=== PATIENT | male | born 1950 | race Caucasian/White ===

== ENCOUNTER 2018-01-14 10:08 | Inpatient (IN) | payer MEDICARE ==
[~2018-01-14] VITALS: Ht 182.9 cm; Wt 121.0 kg
[2018-01-14 10:14] VITALS: BP 121/72; PULSE 101; RESP 16; TEMP 98.3; O2SAT 98
--- NOTE | 2018-01-14 11:18 | PD ---
HPI Chief Complaint: Skin Problem Time Seen by Provider: 11:14 Travel History International Travel<30 days: No Contact w/Intl Traveler<30days: No Traveled to known affect area: No History of Present Illness HPI 67-year-old man, reports treated for diabetes in the past but denies diabetes now. On any medications. Presents emerged from with worsening right foot wound. States first noticed one couple months ago. Over the past several days has gotten more red swollen painful malodorous with drainage. No fevers. No history of previous similar problems. Denies any other complaints. History Past Medical History Narrative Medical Treated for diabetes in the past, denies any medical problems now. Tetanus Vaccination: > 5 Years Social History Alcohol Use: Yes Tobacco Use: No Allergies-Medications (Allergen,Severity, Reaction): Coded Allergies: No Known Allergies (Unverified , 01/14/18) Reported Meds & Prescriptions Reported Meds & Active Scripts Active No Active Prescriptions or Reported Medications Review of Systems Except as stated in HPI: all other systems reviewed are Neg Physical Exam Narrative GENERAL: 67-year-old man, no acute distress SKIN: Focused skin assessment warm/dry. HEAD: Atraumatic. Normocephalic. EYES: Pupils equal and round. No scleral icterus. No injection or drainage. ENT: No nasal bleeding or discharge. Mucous membranes pink and moist. NECK: Trachea midline. No JVD. CARDIOVASCULAR: Regular rate and rhythm. No murmur appreciated. RESPIRATORY: No accessory muscle use. Clear to auscultation. Breath sounds equal bilaterally. GASTROINTESTINAL: Abdomen soft, non-tender, nondistended. Hepatic and splenic margins not palpable. MUSCULOSKELETAL: Edema and swelling with erythema redness to the right foot involving the entire foot and ankle. There is a chronic wound on the base of the plantar surface of the foot, as well as some ulceration over the MTP joints medially. There is copious drainage as well as a foul smell from the area. No obvious fluctuance or abscess. NEUROLOGICAL: Awake and alert. No obvious cranial nerve deficits. Motor grossly within normal limits. Normal speech. PSYCHIATRIC: Appropriate mood and affect; insight and judgment normal. Data Data Last Documented VS Vital Signs Date Time Temp Pulse Resp B/P (MAP) Pulse Ox O2 Delivery O2 Flow Rate FiO2 01/14/18 10:14 98.3 101 16 121/72 (88) 98 Orders Orders Complete Blood Count With Diff (01/14/18 11:14) Comprehensive Metabolic Panel (01/14/18 11:14) Blood Culture (01/14/18 11:14) Iv Access Insert/Monitor (01/14/18 11:14) Westergren Sedimentation Rate (01/14/18 11:14) C-Reactive Protein (Crp) (01/14/18 11:14) Foot, Complete ([id number]) (01/14/18 ) MDM Medical Decision Making Medical Screen Exam Complete: Yes Emergency Medical Condition: Yes Differential Diagnosis Infection, cellulitis, osteo-, other Narrative Course Medical decision making This 67 woman who presents emergency department with lower extremity infection, concern for osteomyelitis, likely diabetes. Will need IV antibiotics in the back, will draw labs and cultures upfront, likely admission. Scripts No Active Prescriptions or Reported Meds Jefferson Andrew MD Jan 14, 2018 11:18
--- NOTE | 2018-01-14 12:17 | RADRPT ---
EXAM DATE/TIME: 01/14/2018 11:41 [facility] COMPARISON: No previous studies available for comparison. INDICATIONS : Inflammation. Patient states he has open ulcer with drainage. MEDICAL HISTORY : Diabetes mellitus type II. SURGICAL HISTORY : None. ENCOUNTER: Initial ACUITY: 4 - 6 months PAIN SCORE: 3/10 LOCATION: Right Foot. FINDINGS: Diffuse soft tissue swelling is noted involving the right foot. There is an ulceration involving the right fifth toe with some air in the soft tissues. The finding suggests infection and possible gangre ne. Degenerative changes are noted involving the right midfoot and right ankle. Plantar and Achilles calcaneal spurs are noted. There is no acute fracture or dislocation. CONCLUSION: 1. Diffuse soft tissue swelling with some air in the soft tissues suggesting infection and possible g angrene. Clinical correlation is recommended. 2. Arthritic changes involving the right mid foot and right ankle. 3. Plantar and Achilles calcaneal spurs. 4. No acute fracture or dislocation. Hesham Wheat MD on January 14, 2018 at 12:12 Board Certified Radiologist. This report was verified electronically.
[2018-01-14 12:23] LABS: AUTOMATED NEUTROPHIL # 12.4 TH/MM3 (1.8-7.7); BASOPHIL % 0.2 % (0.0-2.0); EOSINOPHIL % 0.1 % (0.0-4.0); HEMATOCRIT 36.3 % (39.0-51.0); HEMOGLOBIN 11.9 GM/DL (13.0-17.0); LYMPH % 4.8 % (9.0-44.0); LYMPHOCYTE # 0.7 TH/MM3 (1.0-4.8); MEAN CELL VOLUME 83.9 FL (80.0-100.0); MEAN CORPUSCULAR HEMOGLOBIN 27.4 PG (27.0-34.0); MEAN CORPUSCULAR HGB CONC 32.6 % (32.0-36.0); MEAN PLATELET VOLUME 8.6 FL (7.0-11.0); MONO % 7.9 % (0.0-8.0); MONOCYTE # 1.1 TH/MM3 (0-0.9); PLATELET COUNT 256 TH/MM3 (150-450); RED BLOOD COUNT 4.33 MIL/MM3 (4.50-5.90); RED CELL DISTRIBUTION WIDTH 16.4 % (11.6-17.2); WHITE BLOOD COUNT 14.3 TH/MM3 (4.0-11.0)
[2018-01-14 12:39] LABS: ALT (GPT) 17 U/L (12-78)
[2018-01-14 12:47] LABS: ALKALINE PHOSPHATASE 185 U/L (45-117); TOTAL BILIRUBIN ADULT 1.1 MG/DL (0.2-1.0); TOTAL PROTEIN 8.7 GM/DL (6.4-8.2)
[2018-01-14 12:54] LABS: ALBUMIN 2.8 GM/DL (3.4-5.0); AST (GOT) 17 U/L (15-37); BICARBONATE 26.5 MEQ/L (21.0-32.0); BLOOD UREA NITROGEN 20 MG/DL (7-18); CALCIUM 9.1 MG/DL (8.5-10.1); CHLORIDE 101 MEQ/L (98-107); CREATININE 1.45 MG/DL (0.60-1.30); GLOMERULAR FILTRATION RATE 49 ML/MIN (>89); GLUCOSE,RANDOM 243 MG/DL (74-106); SODIUM (NA) 135 MEQ/L (136-145)
[2018-01-14] MEDS ORDERED: PIPERACIL-TAZO 4.5 GM PREMIX 100 ML IV ONE (13:15)
[2018-01-14] MEDS ORDERED: VANCOMYCIN INJ 1,500 MG in SODIUM CHLORID 0.9% 500 ML INJ 500 ML IV ONE (13:15)
[2018-01-14] MEDS ORDERED: SODIUM CHLORIDE 0.9% FLUSH 10 ML FLUSH IV FLUSH PRN (14:00)
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
[2018-01-14] MEDS ORDERED: VANCOMYCIN INJ 1,000 MG in SODIUM CHLOR 0.9% 250 ML INJ 250 ML IV SCH (14:45)
[2018-01-14] MEDS ORDERED: LACTULOSE SYRUP 20 GM/30 ML CUP PO PRN (14:45)
[2018-01-14] MEDS ORDERED: NALOXONE HCL 0.4 MG/ML AMP IV PUSH PRN (14:45)
[2018-01-14] MEDS ORDERED: SENNOSIDES 8.6 MG TAB PO PRN (14:45)
[2018-01-14] MEDS ORDERED: ACETAMINOPHEN 325 MG TAB PO PRN (14:45)
[2018-01-14] MEDS ORDERED: MAGNESIUM HYDROXIDE SUSP 30 ML CUP PO PRN (14:45)
[2018-01-14] MEDS ORDERED: BISACODYL 10 MG SUPP RECTAL PRN (14:45)
[2018-01-14] MEDS ORDERED: Vancomycin Consult Pharmacy 1 EA OTHER SCH (14:45)
[2018-01-14] MEDS ORDERED: ONDANSETRON HCL 4 MG/2 ML VIAL IVP PRN (14:45)
[2018-01-14] MEDS ORDERED: DEXTROSE 50% IN WATER 50 ML VIAL(D50) IV PUSH PRN (15:00)
[2018-01-14] MEDS ORDERED: GLUCAGON 1 MG/ML VIAL OTHER PRN (15:00)
[2018-01-14] MEDS ORDERED: SODIUM CHLOR 0.9% 1000 ML INJ 1,000 ML IV SCH (15:55)
[2018-01-14] MEDS ORDERED: metroNIDAZOLE 500 MG INJ 100 ML IV SCH (16:00)
--- NOTE | 2018-01-14 18:09 | RADRPT ---
EXAM DATE/TIME: 01/14/2018 17:43 [facility] COMPARISON: No previous studies available for comparison. INDICATIONS : Patient states left foot ulcer. MEDICAL HISTORY : Diabetes mellitus type II. SURGICAL HISTORY : None. ENCOUNTER: Initial ACUITY: 1 day PAIN SCORE: 0/10 LOCATION: Left Foot FINDINGS: Three view examination of the left foot demonstrates dislocation, or fracture. There is nonspecific swelling around the foot. The tarsal bones appear intact. There are degenerative changes at the firs t metatarsophalangeal joint and first DIP joint. There are degenerative changes involving the tarsal bones. There is a heel spur. There is a small cutaneous ulcer along the ball of foot. No foreign bodi es are demonstrated. No bony destruction is demonstrated. CONCLUSION: 1. Small cutaneous ulcer along the ball of foot. 2. Degenerative changes are seen throughout the foot. 3. No bony destruction. Claude Gaviria MD on January 14, 2018 at 18:06 Board Certified Radiologist. This report was verified electronically.
[2018-01-14] MEDS: INSULIN ASPART SUPPLEMENTAL SCALE SQ SCH ×2 (18:14→22:32)
[2018-01-14] MEDS: CEFEPIME INJ 1,000 MG in SODIUM CHLORIDE 0.9% INJ 100 ML IV SCH (18:14)
[2018-01-14 18:18] VITALS: BP 139/72; PULSE 102; RESP 16; O2SAT 96
[2018-01-14 20:00] VITALS: BP 143/58; PULSE 102; RESP 18; TEMP 97.9; O2SAT 97
[2018-01-14] MEDS ORDERED: GADODIAMIDE PF 287 MG/ML 20 ML VIAL (for RAD MRI) IVCONTRAST ONE (21:28)
--- NOTE | 2018-01-14 22:14 | RADRPT ---
EXAM DATE/TIME: 01/14/2018 19:52 [facility] COMPARISON: MRI FOOT RIGHT W & W/O CONTRAST, January 14, 2018, 19:52. FOOT LEFT COMPLETE ([id number]), January 14, 2018 , 17:43. INDICATIONS : Osteomyelitis. Wound on left ball of foot. CONTRAST: 23 cc Omniscan (gadodiamide) IV MEDICAL HISTORY : Diabetes mellitus type 2. SURGICAL HISTORY : None. ENCOUNTER: Subsequent ACUITY: 4-6 months PAIN SCORE: 0/10 LOCATION: Left foot. TECHNIQUE: Multiplanar, multisequence MRI examination was performed without contrast and after the intravenous a dministration of gadolinium. FINDINGS: There is motion artifact throughout the study. BONE/CARTILAGE: There is abnormal signal within the tibial sesamoid at the first metatarsal head. The tibial sesamoid does enhance. The remaining bony structures demonstrate normal signal. Bone marrow signal is homogen eous. Articular cartilage signal is within normal limits. TENDONS: All of the visualized tendons are intact. MISCELLANEOUS: Plantar aponeurosis is intact. Sinus tarsi is within normal limits. There is very prominent thickeni ng of the distal Achilles tendon. The there is edema seen within the forefoot. POST-CONTRAST: There are no abnormal areas of enhancement on the post-contrast images. CONCLUSION: 1. Abnormal signal in the tibial sesamoid at the first metatarsal head region concern for possible in flammatory change in osteomyelitis. Remaining bones and joints are normal. 2. There are prominent thickening of the distal Achilles tendon consistent with very prominent tendin osis/tendinopathy. 3. Soft tissue swelling in the forefoot. Eric Resendiz MD on January 14, 2018 at 22:05 Board Certified Radiologist. This report was verified electronically.
--- NOTE | 2018-01-14 22:17 | RADRPT ---
EXAM DATE/TIME: 01/14/2018 19:52 [facility] COMPARISON: No previous studies available for comparison. INDICATIONS : Osteomyelitis. 5th digit wound for 5 months. CONTRAST: 10 cc Omniscan (gadodiamide) IV MEDICAL HISTORY : Diabetes mellitus type 2. SURGICAL HISTORY : None. ENCOUNTER: Subsequent ACUITY: 4-6 months PAIN SCORE: 0/10 LOCATION: Right foot. TECHNIQUE: Multiplanar, multisequence MRI examination was performed without contrast and after the intravenous a dministration of gadolinium. FINDINGS: BONE/CARTILAGE: There is abnormal signal and destruction at the fifth proximal phalanx. There is mild abnormal signal in the distal lateral fifth metatarsal head region. There is surrounding soft tissue swelling and en hancement. The remaining bony structures appear intact. TENDONS: All of the visualized tendons are intact. MISCELLANEOUS: Plantar aponeurosis is intact. Sinus tarsi is within normal limits. There is an effusion being super iorly directed at the first MTP joint region. CONCLUSION: Osteomyelitis at the fifth proximal phalanx and at the distal aspect of the metatarsal of the fifth m etatarsal head region. Eric Resendiz MD on January 14, 2018 at 22:12 Board Certified Radiologist. This report was verified electronically.
[2018-01-14] MEDS: DOCUSATE SODIUM 50 MG/SENNA 8.6 MG TAB PO SCH (22:33)
[2018-01-14] MEDS: SODIUM CHLORIDE 0.9% FLUSH 10 ML FLUSH IV FLUSH SCH (22:33)
[2018-01-14] MEDS: metroNIDAZOLE 500 MG INJ 100 ML IV SCH (23:55)
[2018-01-15] VITALS (8 sets, daily range): BP systolic 106–163; BP diastolic 48–81; PULSE 93–98; RESP 16–18; TEMP 97.5–99.8; O2SAT 94–97
[2018-01-15] MEDS ORDERED: VANCOMYCIN INJ 1,000 MG in SODIUM CHLOR 0.9% 250 ML INJ 250 ML IV SCH (01:00)
[2018-01-15] MEDS: SODIUM HYPOCHLORITE 0.25% 500 ML BTL TOP SCH ×3 (02:06→23:27)
[2018-01-15] MEDS: CEFEPIME INJ 1,000 MG in SODIUM CHLORIDE 0.9% INJ 100 ML IV SCH ×3 (02:31→18:35)
[2018-01-15 07:16] LABS: AUTOMATED NEUTROPHIL # 8.6 TH/MM3 (1.8-7.7); BASOPHIL % 0.3 % (0.0-2.0); EOSINOPHIL # 0.1 TH/MM3 (0-0.4); EOSINOPHIL % 0.6 % (0.0-4.0); HEMATOCRIT 32.3 % (39.0-51.0); HEMOGLOBIN 10.7 GM/DL (13.0-17.0); LYMPH % 8.3 % (9.0-44.0); LYMPHOCYTE # 0.9 TH/MM3 (1.0-4.8); MEAN CELL VOLUME 83.2 FL (80.0-100.0); MEAN CORPUSCULAR HEMOGLOBIN 27.5 PG (27.0-34.0); MEAN CORPUSCULAR HGB CONC 33.1 % (32.0-36.0); MEAN PLATELET VOLUME 8.3 FL (7.0-11.0); MONO % 9.6 % (0.0-8.0); NEUT % 81.2 % (16.0-70.0); PLATELET COUNT 218 TH/MM3 (150-450); RED BLOOD COUNT 3.88 MIL/MM3 (4.50-5.90); RED CELL DISTRIBUTION WIDTH 16.3 % (11.6-17.2); WHITE BLOOD COUNT 10.6 TH/MM3 (4.0-11.0)
[2018-01-15 07:50] LABS: ALBUMIN 2.3 GM/DL (3.4-5.0); ALT (GPT) 11 U/L (12-78); AST (GOT) 7 U/L (15-37); BICARBONATE 25.9 MEQ/L (21.0-32.0); BLOOD UREA NITROGEN 20 MG/DL (7-18); CALCIUM 8.3 MG/DL (8.5-10.1); CHLORIDE 107 MEQ/L (98-107); CREATININE 1.47 MG/DL (0.60-1.30); GLOMERULAR FILTRATION RATE 48 ML/MIN (>89); GLUCOSE,RANDOM 181 MG/DL (74-106); SODIUM (NA) 140 MEQ/L (136-145)
[2018-01-15 07:53] LABS: ALKALINE PHOSPHATASE 159 U/L (45-117); TOTAL BILIRUBIN ADULT 0.9 MG/DL (0.2-1.0); TOTAL PROTEIN 7.3 GM/DL (6.4-8.2)
[2018-01-15] MEDS: DOCUSATE SODIUM 50 MG/SENNA 8.6 MG TAB PO SCH ×2 (09:00→21:29)
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
[2018-01-15] MEDS: INSULIN ASPART SUPPLEMENTAL SCALE SQ SCH ×4 (09:06→21:28)
[2018-01-15] MEDS: metroNIDAZOLE 500 MG INJ 100 ML IV SCH ×3 (09:07→23:22)
--- NOTE | 2018-01-15 12:56 | RADRPT ---
EXAM DATE/TIME: 01/15/2018 11:48 [facility] COMPARISON: No previous studies available for comparison. INDICATIONS : Syncope. MEDICAL HISTORY : Cough. Sore throat. Diabetes. Fever. SURGICAL HISTORY : Traction of finger. ENCOUNTER: Initial ACUITY: 1 day PAIN SCORE: 0/10 LOCATION: Bilateral neck PEAK SYSTOLIC VELOCITIES (cm/sec): ICA/CCA RATIO: Right: 2.1 Left: 1.0 ICA: Right: 152 Left: 86 CCA: Right: 73 Left: 89 ECA: Right: 109 Left: 62 VERTEBRAL: Right: 52 antegrade Left: 85 antegrade Elevated flow velocities and ICA/CCA ratios have been found to correlate with increased degrees of vessel stenosis, calculated as percentage of diameter relative to a normal segment of distal ICA/CCA FINDINGS: RIGHT CAROTID: There is an elevated peak systolic velocity of the right internal carotid artery at elevated ICA/CCA ratio suggesting 50-69% stenosis of the right ICA. LEFT CAROTID: No significant stenosis is visualized. The waveforms are within normal limits. VERTEBRAL ARTERIES: Antegrade flow is seen in both vertebral arteries. MISCELLANEOUS: None. CONCLUSION: 1. Elevated peak systolic velocity of the right internal carotid artery at elevated ICA/CCA ratio sug gesting 50-69% stenosis of the right ICA. 2. No significant left carotid stenosis. Hesham Wheat MD on January 15, 2018 at 12:45 Board Certified Radiologist. This report was verified electronically.
--- NOTE | 2018-01-15 13:39 | RADRPT ---
EXAM DATE/TIME: 01/14/2018 00:00 [facility] COMPARISON: No previous studies available for comparison. INDICATIONS : Lower Extremity Cellulitis TECHNIQUE: Four-cuff ankle and brachial pressures were obtained. Pulse cuff waveform tracings of the ankles were recorded, and ankle-brachial indices were calculated. PRESSURES (mmHg): Brachial (arm): Right 108 Left IV SITE Ankle: Right 137 Left 139 PAVEL: Right 1.27 Left 1.29 TBI: Right 0.81 Left 0.84 PULSED CUFF WAVEFORMS: Demonstrate normal amplitude bilaterally. CONCLUSION: Mildly diminished ABIs bilaterally. Claude Gaviria MD on January 15, 2018 at 13:38 Board Certified Radiologist. This report was verified electronically.
[2018-01-15] MEDS: VANCOMYCIN INJ 2,000 MG in SODIUM CHLORID 0.9% 500 ML INJ 500 ML IV SCH (14:28)
[2018-01-15 15:18] LABS: HEMOGLOBIN A1C 10.3 % (4.3-6.0)
--- NOTE | 2018-01-15 16:49 | HHI.FPPN ---
Subjective Remarks DELAYED DOCUMENTATION, PATIENT SEEN THIS MORNING No acute events overnight. VS unremarkable except for Pulse in the 90s. This morning patient reports that he feels okay but a little SOB. Ate breakfast this morning without issue. Patient otherwise has no acute concerns. (Danae Rose MD, R3) Objective Vitals Vital Signs Date Time Temp Pulse Resp B/P (MAP) Pulse Ox O2 Delivery O2 Flow Rate FiO2 01/15/18 12:00 98.8 96 18 117/66 (83) 95 01/15/18 09:17 97 21 01/15/18 08:00 98.5 93 16 122/70 (87) 94 01/15/18 04:00 98.4 93 18 163/81 (108) 94 01/15/18 01:21 99.8 95 106/48 (67) 94 01/15/18 00:00 97.6 97 18 137/56 (83) 97 01/14/18 22:33 Room Air 01/14/18 20:00 97.9 102 18 143/58 (86) 97 01/14/18 19:05 01/14/18 18:18 102 16 139/72 (94) 96 Room Air (Danae Rose MD, R3) Result Diagram: 01/15/18 0620 01/15/18 0620 Imaging Last Impressions Carotid Artery Ultrasound 01/15/18 0000 Signed Impressions: Service Date/Time: December 11:48 - CONCLUSION: 1. Elevated peak systolic velocity of the right internal carotid artery at elevated ICA/ CCA ratio suggesting 50-69%% stenosis of the right ICA. 2. No significant left carotid stenosis. Hesham Wheat MD Foot X-Ray 01/14/18 0000 Signed Impressions: Service Date/Time: Sunday, January 14, 2018 17:43 - CONCLUSION: 1. Small cutaneous ulcer along the ball of foot. 2. Degenerative changes are seen throughout the foot. 3. No bony destruction. Claude Gaviria MD Foot MRI 01/14/18 0000 Signed Impressions: Service Date/Time: Sunday, January 14, 2018 19:52 - CONCLUSION: Osteomyelitis at the fifth proximal phalanx and at the distal aspect of the metatarsal of the fifth metatarsal head region. Eric Resendiz MD Objective Remarks GEN: Well-developed, well-nourished patient. No acute distress. Laying comfortably in bed. CV: Regular rate and rhythm without obvious murmurs. Decreased palpation carotid pulses but without bruits. LUNGS: Good air movement bilaterally but with bibasilar crackles. Normal respiratory effort. No wheezes. GI: Soft non distended EXT: Right foot wrap in gauze, clean and dry. NEURO/PSYCH: Awake, alert. Appropriate insight and judgment. Normal speech (Danae Rose MD, R3) A/P Assessment and Plan 67-year-old male with history significant for diabetes that is not currently being controlled. Admitted for right foot osteomyelitis. Patient did meet sepsis criteria on admission. Discharge Planning Pending podiatry intervention in ultimate treatment of osteomyelitis sdw Dr. Jennings and Dr. Jose (Danae Rose MD, R3) Attending Attestation Table rounds this morning with Dr Braga, Dr Autumn Fisher, Dr Jose and Dr Restrepo Patients admission and hospital course discussed in detail EMR reviewed Patient interviewed and examined with medical team Agree with contents of above documentation See Orders (Kang Jennings MD) Problem List: (1) Osteomyelitis ICD Codes: M86.9 - Osteomyelitis, unspecified Plan: Found to have osteomyelitis on right foot involving fifth proximal phalanx in the distal aspect of the metatarsal of the fifth metatarsal head. ESR and CRP elevated on admission but down trending. Left foot with wound but appears to be more superficial. -closely monitor left foot wound. -Carotid US performed due to decreased palpable pulses in anticipation of surgery. Show right carotid stenosis of 50-69%. Patient is currently asymptomatic. Podiatry consulted: appreciate recommendations * Will require wound debridement but will determine treatment options pending MRI and arterial studies * Continue IV antibiotics * Nonweightbearing * Physical therapy * Plan to operate on Friday pending results Imaging: * Right Foot MRI: Osteomyelitis at the fifth proximal phalanx and at the distal aspect of the metatarsal of the fifth metatarsal head region. * Right Foot XR: Diffuse soft tissue swelling with some air in the soft tissues suggesting infection and possible gangrene. * Left Foot MRI: Abnormal signal in the tibial sesamoid at the first metatarsal head region concern for possible inflammatory change in osteomyelitis. There are prominent thickening of the distal Achilles tendon consistent with very prominent tendinosis/tendinopathy. * Left Foot XR: Small cutaneous ulcer along the ball of foot. No bony destruction Medications: * Cefepime (01/14- * Vancomycin (01/14- * Metronidazole (01/15- (2) Sepsis ICD Codes: A41.9 - Sepsis, unspecified organism Status: Resolved Plan: Met Sepsis criteria on admission with tachycardia and leukocytosis. Likely source is R foot wound Blood cultures NGTD -see more detailed plan above. (3) Diabetes ICD Codes: E11.9 - Type 2 diabetes mellitus without complications Plan: Patient with known history of DM, was treated with Metformin 4 years ago but hasn't been on medication for past 2-3 years Random glucose of 243 on admission Low dose sliding scale A1C pending -will likely need some basal insulin (4) GABRIEL (acute kidney injury) ICD Codes: N17.9 - Acute kidney failure, unspecified Plan: Creatinine elevated to 1.45 on admission. No known baseline -Hold fluids at this time due to crackles on lung exam -continue to monitor Trend BMP in AM (5) Left foot wound Plan: Wound on plantar surface of L foot, doesn't appear to be acutely infected. See more detailed plan under osteo- (6) FEN Plan: F: non E: will replete as needed N: Diabetic diet, NPO at midnight pending possible procedure DVT: holding for possible procedure, SCDs for now GI PPX: not indicated (Danae Rose MD, R3) Danae Rose MD, R3 Jan 15, 2018 16:49 Kang Jennings MD Jan 15, 2018 19:43
[2018-01-15] MEDS: SODIUM CHLORIDE 0.9% FLUSH 10 ML FLUSH IV FLUSH SCH ×2 (17:17→21:28)
[2018-01-16 00:46] VITALS: BP 137/78; PULSE 95; RESP 18; TEMP 98; O2SAT 96
[2018-01-16] MEDS: CEFEPIME INJ 1,000 MG in SODIUM CHLORIDE 0.9% INJ 100 ML IV SCH ×3 (02:44→18:52)
[2018-01-16 04:47] VITALS: BP 149/89; PULSE 95; RESP 18; TEMP 98; O2SAT 96
[2018-01-16] MEDS: INSULIN ASPART SUPPLEMENTAL SCALE SQ SCH ×4 (07:39→21:42)
--- NOTE | 2018-01-16 07:59 | PD.POD ---
Subjective Podiatric Problems Pt seen at bedside today, he states that he is feeling well. Malodor of wound is notably improved. Past Med/Surg/Social History Social History Smoking Status: Never Smoker Objective Vital Signs Vital Signs Date Time Temp Pulse Resp B/P (MAP) Pulse Ox O2 Delivery O2 Flow Rate FiO2 01/16/18 04:47 98.0 95 18 149/89 (109) 96 01/16/18 00:46 98.0 95 18 137/78 (97) 96 01/15/18 21:28 Room Air 01/15/18 20:54 97.5 98 18 132/76 (94) 95 01/15/18 16:00 98.3 95 18 129/74 (92) 95 01/15/18 15:23 Room Air 01/15/18 12:00 98.8 96 18 117/66 (83) 95 01/15/18 09:17 97 21 01/15/18 08:00 98.5 93 16 122/70 (87) 94 Coded Allergies: No Known Allergies (Unverified , 01/14/18) Physical Exam Details RLE exam linited due to bandages LLE sub 1 ulcer 5mm x 5mm x0 with heavy hypertrophic tissue surrounding, no erythema, no drainage Assessment & Plan A/P 1) Right foot 5th ray OM 2) Left foot sub 1 stage II ulcer with possible OM - OR today for right foot partial 5th ray amp and b/l wound debridements - MRI reviewed with pt - consent ordered - wound cxs pending - 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
[2018-01-16 08:00] VITALS: BP 150/85; PULSE 91; RESP 18; TEMP 97.8; O2SAT 97
[2018-01-16] MEDS: DOCUSATE SODIUM 50 MG/SENNA 8.6 MG TAB PO SCH ×2 (08:03→21:00)
[2018-01-16] MEDS: SODIUM CHLORIDE 0.9% FLUSH 10 ML FLUSH IV FLUSH SCH ×2 (08:04→21:42)
[2018-01-16] MEDS: metroNIDAZOLE 500 MG INJ 100 ML IV SCH ×2 (08:04→16:00)
[2018-01-16] MEDS: VANCOMYCIN INJ 2,000 MG in SODIUM CHLORID 0.9% 500 ML INJ 500 ML IV SCH (08:06)
[2018-01-16] MEDS: SODIUM HYPOCHLORITE 0.25% 500 ML BTL TOP SCH ×2 (08:10→21:00)
[2018-01-16 09:59] LABS: AUTOMATED NEUTROPHIL # 8.9 TH/MM3 (1.8-7.7); BASOPHIL % 0.4 % (0.0-2.0); EOSINOPHIL # 0.1 TH/MM3 (0-0.4); EOSINOPHIL % 0.7 % (0.0-4.0); HEMATOCRIT 34.5 % (39.0-51.0); HEMOGLOBIN 11.4 GM/DL (13.0-17.0); LYMPH % 7.4 % (9.0-44.0); LYMPHOCYTE # 0.8 TH/MM3 (1.0-4.8); MEAN CELL VOLUME 83.7 FL (80.0-100.0); MEAN CORPUSCULAR HEMOGLOBIN 27.7 PG (27.0-34.0); MEAN CORPUSCULAR HGB CONC 33.1 % (32.0-36.0); MEAN PLATELET VOLUME 8.5 FL (7.0-11.0); MONO % 8.7 % (0.0-8.0); MONOCYTE # 0.9 TH/MM3 (0-0.9); NEUT % 82.8 % (16.0-70.0); PLATELET COUNT 222 TH/MM3 (150-450); RED BLOOD COUNT 4.12 MIL/MM3 (4.50-5.90); RED CELL DISTRIBUTION WIDTH 16.3 % (11.6-17.2); WHITE BLOOD COUNT 10.7 TH/MM3 (4.0-11.0)
[2018-01-16 10:25] LABS: BICARBONATE 19.6 MEQ/L (21.0-32.0); CALCIUM 8.7 MG/DL (8.5-10.1); CREATININE 1.55 MG/DL (0.60-1.30)
--- NOTE | 2018-01-16 10:34 | HHI.FPPN ---
Subjective Remarks No acute events overnight. Patient is currently NPO for surgery this afternoon. Denies CP, SOB, N/V. He is aware that he will likely lose his 5th toe at least. Objective Vitals Vital Signs Date Time Temp Pulse Resp B/P (MAP) Pulse Ox O2 Delivery O2 Flow Rate FiO2 01/16/18 04:47 98.0 95 18 149/89 (109) 96 01/16/18 00:46 98.0 95 18 137/78 (97) 96 01/15/18 21:28 Room Air 01/15/18 20:54 97.5 98 18 132/76 (94) 95 01/15/18 16:00 98.3 95 18 129/74 (92) 95 01/15/18 15:23 Room Air 01/15/18 12:00 98.8 96 18 117/66 (83) 95 I/O 01/15/18 01/15/18 01/15/18 01/16/18 01/16/18 01/16/18 07:00 15:00 23:00 07:00 15:00 23:00 Intake Total 200 ml 700 ml 240 ml Balance 200 ml 700 ml 240 ml Intake Oral 240 ml IV Total 200 ml 700 ml # Voids 4 Result Diagram: 01/16/18 0830 01/16/18 0830 Objective Remarks GEN: Well-developed, well-nourished patient. No acute distress. Sitting up in bed comfortably CV: Regular rate and rhythm without obvious murmurs. LUNGS: Good air movement bilaterally but with bibasilar crackles. Normal respiratory effort. No wheezes. GI: Soft non distended, nontender EXT: Right foot wrap in gauze, clean and dry. NEURO/PSYCH: Awake, alert. Appropriate insight and judgment. Normal speech A/P Assessment and Plan 67-year-old male with history significant for diabetes that is not currently being controlled. Admitted for right foot osteomyelitis. Patient did meet sepsis criteria on admission. Started on Vanc, Cefepime, Flagyl since admission. Discharge Planning Pending podiatry intervention in ultimate treatment of osteomyelitis - surgery planned for 01/[address] Autumn Fisher Problem List: (1) Osteomyelitis ICD Codes: M86.9 - Osteomyelitis, unspecified Plan: Found to have osteomyelitis on right foot involving fifth proximal phalanx in the distal aspect of the metatarsal of the fifth metatarsal head. ESR and CRP elevated on admission but down trending. Left foot with wound but appears to be more superficial. -closely monitor left foot wound. -Carotid US performed due to decreased palpable pulses in anticipation of surgery. Show right carotid stenosis of 50-69%. Patient is currently asymptomatic. Podiatry consulted: appreciate recommendations * Will require wound debridement * Continue IV antibiotics * Nonweightbearing * Physical therapy * Plan to operate on 01/16 Imaging: * Right Foot MRI: Osteomyelitis at the fifth proximal phalanx and at the distal aspect of the metatarsal of the fifth metatarsal head region. * Right Foot XR: Diffuse soft tissue swelling with some air in the soft tissues suggesting infection and possible gangrene. * Left Foot MRI: Abnormal signal in the tibial sesamoid at the first metatarsal head region concern for possible inflammatory change in osteomyelitis. There are prominent thickening of the distal Achilles tendon consistent with very prominent tendinosis/tendinopathy. * Left Foot XR: Small cutaneous ulcer along the ball of foot. No bony destruction Medications: * Cefepime (01/14- * Vancomycin (01/14- * Metronidazole (01/14- (2) Sepsis ICD Codes: A41.9 - Sepsis, unspecified organism Status: Resolved Plan: Met Sepsis criteria on admission with tachycardia and leukocytosis. Likely source is R foot wound Blood cultures NGTD -Currently resolved -see more detailed plan above. (3) Diabetes ICD Codes: E11.9 - Type 2 diabetes mellitus without complications Plan: Patient with known history of DM, was treated with Metformin 4 years ago but hasn't been on medication for past 2-3 years Random glucose of 243 on admission Low dose sliding scale A1C elevated at 10.3 Currently well-controlled on sliding scale (4) GABRIEL (acute kidney injury) ICD Codes: N17.9 - Acute kidney failure, unspecified Plan: Creatinine elevated to 1.45 on admission. No known baseline Has been stable but still elevated at 1.55 Held fluids on 01/15 due to crackles on exam No crackles on today's exam, will resume one half maintenance IV fluids as patient is n.p.o. for procedure Trending BMP (5) Left foot wound Plan: Wound on plantar surface of L foot, doesn't appear to be acutely infected. See more detailed plan under osteo- (6) FEN Plan: F: NS at 75mL/hr E: will replete as needed N: NPO currently for procedure today - will resume diabetic diet afterwards DVT: holding procedure, SCDs for now GI PPX: not indicated Anshu Jose MD R1 Jan 16, 2018 10:34
--- NOTE | 2018-01-16 11:06 | EKG ---
Date Performed: 01/16/2018 Time Performed: 08:55:35 PTAGE: 67 years EKG: Sinus rhythm MARKED RIGHT AXIS DEVIATION RIGHT BUNDLE BRANCH BLOCK ABNORMAL ECG NO PREVIOUS TRACING Poor R-wave progression. Old inferior infarction. DOCTOR: Nicholas Fisher Interpretating Date/Time 01/16/2018 11:04:16
[2018-01-16 12:00] VITALS: BP 159/87; PULSE 92; RESP 20; TEMP 98; O2SAT 97
[2018-01-16] MEDS ORDERED: GLYCOPYRROLATE 1 MG/5 ML SYRINGE IV PUSH ONE (12:00)
[2018-01-16] MEDS ORDERED: ROCURONIUM INJ 50 MG/5 ML SYRINGE IV PUSH ONE (12:00)
[2018-01-16] MEDS ORDERED: PROPOFOL 200 MG/20 ML AMP IV ONE (12:00)
[2018-01-16] MEDS ORDERED: ONDANSETRON HCL 4 MG/2 ML VIAL IV ONE (12:00)
[2018-01-16] MEDS ORDERED: NEOSTIGMINE 5 MG/5 ML SYRINGE IV PUSH ONE (12:00)
[2018-01-16] MEDS ORDERED: PHENYLEPH/NS 1000 MCG/10 ML SYR IV ONE (12:00)
[2018-01-16] MEDS ORDERED: LIDOCAINE HCL 1% PF 5 ML SYRINGE OTHER ONE (12:00)
[2018-01-16] MEDS: SODIUM CHLOR 0.9% 1000 ML INJ 1,000 ML IV SCH (12:16)
[2018-01-16 15:40] VITALS: O2SAT 92
[2018-01-16] MEDS ORDERED: SODIUM CHLORID 0.9% 500 ML IV PRN (16:30)
[2018-01-16] MEDS ORDERED: LACTATED RINGER'S 1000 ML IV PRN (16:30)
[2018-01-16] MEDS ORDERED: CHLORHEXIDINE GLUCONATE 2 % 1 PACK (2 CLOTHS) TOPICAL PRN (16:30)
[2018-01-16] MEDS ORDERED: METOPROLOL TARTRATE 25 MG TAB PO PRN (16:30)
[2018-01-16] MEDS ORDERED: POVIDONE IODINE 5% (ANTISEPSIS KIT) 4 APPLICATIONS EACH NARE PRN (16:30)
[2018-01-16] MEDS ORDERED: BUPIVACAINE HCL PF 0.25% 30 ML VIAL ONE (16:43)
[2018-01-16] MEDS ORDERED: NEOMYCIN/POLYMYXIN 1 ML G.U. IRRIGANT ONE (16:45)
[2018-01-16] MEDS ORDERED: DO NOT ADM ANY ANTICOAGULANT DRUGS PRN (18:05)
[2018-01-16] MEDS ORDERED: *RESP: ALBUTEROL 2.5 MG/3 ML NEB (PRN) PERIprocedural Use ONLY NEB ONE (18:06)
--- NOTE | 2018-01-16 18:24 | MP ---
cc: Jasmin Eid DPM DATE OF OPERATION: 01/16/2018 DATE OF SURGERY: 01/16/2018 SURGEON: Jasmin Eid DPM CREDENTIALING SPECIALIST: Staff provided teachers' assistant. PREOPERATIVE DIAGNOSES: 1. Right foot abscess and ulceration. 1. Right foot osteomyelitis. 2. Left foot ulceration. POSTOPERATIVE DIAGNOSES: 1. Right foot abscess and ulceration. 1. Right foot osteomyelitis. 2. Left foot ulceration. PROCEDURE PERFORMED: 1. Left foot wound debridement. 2. Right foot incision and drainage 3. Right foot extensive wound debridement. 4. Right foot partial fifth ray amputation. 5. Right foot wound closure using a rotational flap. PATHOLOGY SENT: Distal fifth ray sent to pathology. Clean margin sent to pathology and microbiology. ESTIMATED BLOOD LOSS: Less than 5 mL. INJECTABLES: None. MATERIALS USED: 3-0 and 2-0 Prolene. COMPLICATIONS: None. ANESTHESIA: General. HEMOSTASIS: Anatomical dissection on the left and a pneumatic ankle tourniquet on the right. INDICATION FOR PROCEDURE: Mr. Abel is a 67-year-old male diabetic patient who is uncontrolled and does not take care of his diabetes or his hygiene. He developed severe ulceration to the right foot and a mild ulceration to the left foot over several weeks. Over the last few days, it became painful and draining, and that is when he admitted to the emergency department. The MRI showed osteomyelitis of the right foot, and questionable of the left. The decision was made for a partial fifth ray amputation and debridement of bilateral wounds. The consent was signed, the procedure was explained and no guarantees were given. PROCEDURE IN DETAIL: Under mild sedation, the patient was brought to the operating room, and placed on the operating table in supine position. Following IV sedation, pneumatic ankle tourniquet was placed around the right ankle. Both feet were then scrubbed, prepped and draped in the usual aseptic manner. Attention was directed to the left foot submet 1 where a large amount of hypertrophic tissue was debrided to reveal a fibrotic wound bed of 1 x 0.75 x 0.25 cm. The wound bed was sharply debrided until some granular tissue was appreciated. At this point, it was approximately 50% granular and 50% fibrotic. The area was cleansed with copious amounts of sterile saline and dressed with sterile Xeroform, adaptic, 4 x 4s, and a light Raul bandage. Attention was then directed to the right foot, which was exsanguinated using the Esmarch bandage. Pneumatic ankle tourniquet was applied and inflated to 250 mmHg. Attention was directed to the right foot where there was a large submet 5 ulceration and the lateral fifth ulceration, both of which were large. It were obvious signs of tracking abscess underneath all of the lesser MPJs. Both of the wounds were circumscribed with 2 linear incisions from dorsal to plantar, which connected in order to allow an ellipse of tissue removing fifth digit, as well as removing both of the ulcerations. A hemostat was then used to probe the medial sinus tract, which extended under all of the digits. This was opened using a scalpel and the underlying tissue was severely necrotic, purulent and unhealthy. A rongeur was used to remove all of the necrotic tissue and tendons. Both areas were flushed with copious amounts of sterile saline and then an oscillating saw was used to remove the distal 1/3 of the fifth metatarsal. The digit and the fifth metatarsal were sent to pathology for further evaluation. The area was then flushed with 3 liters using a pulse lavage and then clean bone rongeurs were used to take a sample of the remaining fifth metatarsal bone to send a portion to pathology and a portion to microbiology. The incision underneath the digits was closed using 2-0 Prolene. It is of note that the skin was very frayed and then the area around the fifth metatarsal was then undermined and debulked in order to allow some closure. The plantar lateral skin was able to be mobilized and pulled into a more lateral position to allow for full closure of the area. Minimal skin tension was noted at this point. The skin edges were well coapted. The leg was then cleansed and a compressive dressing of Adaptic, Betadine soaked gauze, abdominal pads, cast padding and an Raul bandage was then applied. Prior to dressing application and closure, the pneumatic ankle tourniquet was released and had prompt hyperemic response to all digits of the right foot and adequate healthy bleeding of the tissue. The patient tolerated the procedure and the anesthesia well. He will recover in the PACU for a period of time before being discharged home with written and oral postoperative instructions. FABY Flores/MANAS , 05:57 PM , 06:23 PM [facility] SYSTEMColeman
[2018-01-16] MEDS ORDERED: ACETAMINOPHEN/HYDROcodone 325 MG/7.5 MG TAB PO PRN (21:15)
[2018-01-16] MEDS ORDERED: ACETAMINOPHEN/HYDROcodone 325 MG/5 MG TAB PO PRN (21:15)
[2018-01-16] MEDS ORDERED: HYDROmorphone HCL PF 1 MG/ML VIAL IV PUSH PRN (21:15)
[2018-01-16] MEDS ORDERED: NALOXONE HCL 0.4 MG/ML AMP IV PUSH PRN (21:15)
[2018-01-17] VITALS (8 sets, daily range): BP systolic 124–148; BP diastolic 63–88; PULSE 90–96; RESP 18–20; TEMP 98.1–99.3; O2SAT 92–97
[2018-01-17] MEDS: metroNIDAZOLE 500 MG INJ 100 ML IV SCH ×4 (00:14→22:38)
[2018-01-17] MEDS: CEFEPIME INJ 1,000 MG in SODIUM CHLORIDE 0.9% INJ 100 ML IV SCH ×3 (01:20→17:59)
[2018-01-17] MEDS ORDERED: PHARMACY ORDERED LAB ONE (01:45)
[2018-01-17] MEDS: SODIUM CHLOR 0.9% 1000 ML INJ 1,000 ML IV SCH (02:03)
[2018-01-17] MEDS: VANCOMYCIN INJ 2,000 MG in SODIUM CHLORID 0.9% 500 ML INJ 500 ML IV SCH ×2 (02:37→22:38)
[2018-01-17 06:28] LABS: AUTOMATED NEUTROPHIL # 8.6 TH/MM3 (1.8-7.7); BASOPHIL % 0.3 % (0.0-2.0); EOSINOPHIL % 0.3 % (0.0-4.0); HEMOGLOBIN 10.9 GM/DL (13.0-17.0); LYMPH % 8.4 % (9.0-44.0); LYMPHOCYTE # 0.9 TH/MM3 (1.0-4.8); MEAN CELL VOLUME 83.4 FL (80.0-100.0); MEAN CORPUSCULAR HEMOGLOBIN 26.8 PG (27.0-34.0); MEAN CORPUSCULAR HGB CONC 32.1 % (32.0-36.0); MEAN PLATELET VOLUME 8.5 FL (7.0-11.0); MONO % 9.9 % (0.0-8.0); MONOCYTE # 1.1 TH/MM3 (0-0.9); NEUT % 81.1 % (16.0-70.0); PLATELET COUNT 257 TH/MM3 (150-450); RED BLOOD COUNT 4.07 MIL/MM3 (4.50-5.90); RED CELL DISTRIBUTION WIDTH 16.4 % (11.6-17.2); WHITE BLOOD COUNT 10.7 TH/MM3 (4.0-11.0)
[2018-01-17 08:18] LABS: ALBUMIN 2.2 GM/DL (3.4-5.0); ALT (GPT) 14 U/L (12-78); AST (GOT) 9 U/L (15-37); BICARBONATE 21.6 MEQ/L (21.0-32.0); BLOOD UREA NITROGEN 18 MG/DL (7-18); CHLORIDE 109 MEQ/L (98-107); CREATININE 1.39 MG/DL (0.60-1.30); GLOMERULAR FILTRATION RATE 51 ML/MIN (>89); GLUCOSE,RANDOM 226 MG/DL (74-106); SODIUM (NA) 140 MEQ/L (136-145)
[2018-01-17 08:20] LABS: ALKALINE PHOSPHATASE 179 U/L (45-117); TOTAL BILIRUBIN ADULT 0.7 MG/DL (0.2-1.0); TOTAL PROTEIN 6.9 GM/DL (6.4-8.2)
[2018-01-17] MEDS: SODIUM HYPOCHLORITE 0.25% 500 ML BTL TOP SCH ×2 (09:00→21:00)
[2018-01-17] MEDS: SODIUM CHLORIDE 0.9% FLUSH 10 ML FLUSH IV FLUSH SCH ×2 (09:00→22:39)
[2018-01-17] MEDS: BACITRACIN TOP OINT 15 GM TUBE TOPICAL SCH (09:00)
[2018-01-17] MEDS: INSULIN ASPART SUPPLEMENTAL SCALE SQ SCH ×4 (09:05→22:51)
[2018-01-17] MEDS: DOCUSATE SODIUM 50 MG/SENNA 8.6 MG TAB PO SCH ×2 (09:06→22:39)
--- NOTE | 2018-01-17 10:12 | HHI.FPPN ---
Subjective Remarks No acute events overnight. Patient states his pain is about a 4/10 - tolerated PO [place] well overnight. Denies CP, SOB, N/V. Objective Vitals Vital Signs Date Time Temp Pulse Resp B/P (MAP) Pulse Ox O2 Delivery O2 Flow Rate FiO2 01/17/18 08:24 95 21 01/17/18 08:17 98.3 91 18 148/88 (108) 96 01/17/18 04:00 98.5 94 20 126/83 (97) 92 01/17/18 00:00 98.4 96 18 124/63 (83) 94 01/16/18 18:30 98.5 90 16 138/71 (93) 95 Nasal Cannula 2 01/16/18 18:00 98.5 90 16 125/73 (90) 93 Nasal Cannula 2 01/16/18 15:40 92 21 01/16/18 12:00 98.0 92 20 159/87 (111) 97 I/O 01/16/18 01/16/18 01/16/18 01/17/18 01/17/18 01/17/18 07:00 15:00 23:00 07:00 15:00 23:00 Intake Total 240 ml 700 ml Output Total 5 ml 200 ml Balance 240 ml 695 ml -200 ml Intake Oral 240 ml Other 700 ml Output Urine Total 200 ml Estimated Blood Loss 5 ml # Voids 4 1 0 # Bowel Movements 0 Result Diagram: 01/17/185 01/17/18 0455 Objective Remarks GEN: Well-developed, well-nourished patient. No acute distress. Sitting up on side of bed comfortably CV: Regular rate and rhythm without obvious murmurs. LUNGS: Good air movement bilaterally but with crackles in the R lung base. Normal respiratory effort. No wheezes. GI: Soft non distended, nontender EXT: Both R and L foot wrapped in gauze that is clean, dry and intact. No noticeable swelling/erythema outside of the dressing. Sensation intact in toes with appropriate capillary refill, movement of toes intact. NEURO/PSYCH: Awake, alert. Appropriate insight and judgment. Normal speech A/P Assessment and Plan 67-year-old male with history significant for diabetes that is not currently being controlled. Admitted for right foot osteomyelitis. Patient did meet sepsis criteria on admission. Started on Vanc, Cefepime, Flagyl since admission. S/P R foot I&D, debridement and partial amputation of 5th metatarsal as well as L foot wound debridement on 01/16. Cultures pending. Discharge Planning buttermaker helper antibiotic plan pending culture results. PT recommending inpatient rehab. ALEX Jennings Problem List: (1) Osteomyelitis ICD Codes: M86.9 - Osteomyelitis, unspecified Plan: Found to have osteomyelitis on right foot involving fifth proximal phalanx in the distal aspect of the metatarsal of the fifth metatarsal head. ESR and CRP elevated on admission but down trending. Left foot with wound but appears to be more superficial. -closely monitor left foot wound. -Carotid US performed due to decreased palpable pulses in anticipation of surgery. Show right carotid stenosis of 50-69%. Patient is currently asymptomatic. Podiatry consulted: appreciate recommendations * R foot I&D, debridement and partial amputation of 5th metatarsal as well as L foot wound debridement on 01/16 * Continue IV antibiotics * Nonweightbearing * -PT recommending inpatient rehab after DC * Cultures pending Imaging: * Right Foot MRI: Osteomyelitis at the fifth proximal phalanx and at the distal aspect of the metatarsal of the fifth metatarsal head region. * Right Foot XR: Diffuse soft tissue swelling with some air in the soft tissues suggesting infection and possible gangrene. * Left Foot MRI: Abnormal signal in the tibial sesamoid at the first metatarsal head region concern for possible inflammatory change in osteomyelitis. There are prominent thickening of the distal Achilles tendon consistent with very prominent tendinosis/tendinopathy. * Left Foot XR: Small cutaneous ulcer along the ball of foot. No bony destruction Medications: * Cefepime (01/14- * Vancomycin (01/14- * Metronidazole (01/14- * * [place] pain scale (2) Sepsis ICD Codes: A41.9 - Sepsis, unspecified organism Status: Resolved Plan: Met Sepsis criteria on admission with tachycardia and leukocytosis. Likely source is R foot wound Blood cultures NGTD -Currently resolved -see more detailed plan above. (3) Diabetes ICD Codes: E11.9 - Type 2 diabetes mellitus without complications Plan: Patient with known history of DM, was treated with Metformin 4 years ago but hasn't been on medication for past 2-3 years Random glucose of 243 on admission Low dose sliding scale A1C elevated at 10.3 Currently well-controlled on sliding scale (4) GABRIEL (acute kidney injury) ICD Codes: N17.9 - Acute kidney failure, unspecified Plan: Creatinine elevated to 1.45 on admission. No known baseline Has been stable - currently 1.39 Held fluids on 01/15 due to crackles on exam Resumed IVF on 01/17 as patient was NPO - stopping IVF on 01/17 Trending BMP (5) Left foot wound Plan: Wound on plantar surface of L foot Wound was debrided by Podiatry on 01/16 - will follow recs for wound care (6) FEN Plan: F: DC'ing IVF on 01/17 E: will replete as needed N: Diabetic diet DVT: holding after procedure, SCDs for now GI PPX: not indicated Anshu Jose MD R1 Jan 17, 2018 10:12
--- NOTE | 2018-01-17 12:28 | PD.CONS ---
History of Present Illness Service Infectious disease Consult Requested By Dr. Neisha Eid Reason for Consult Evaluate patient with diabetic foot infection Primary Care Physician Irvin Reese MD Diagnoses: History of Present Illness Patient seen and examined. Records reviewed. Patient is a poor historian Patient is a 67-year-old male, presented to the hospital complaining of redness and swelling on his right foot. He apparently has had an ulcer on the lateral aspect of his right foot for the last 5 months. He has not really been taking care of it, and it had gotten worse. Over the last several weeks he has noted redness and swelling, and also noted some drainage. It was noted that it was bloody. There was no mention of any foul-smelling discharge. He has had some subjective fevers over the last 4-5 days, but has not taken his temperature because he has no thermometer. There's been no respiratory complaint GI or any urinary complaint. Patient apparently has been diagnosed to have diabetes, and was supposed to be on Glucophage, but he has not taken any diabetic medication over the last 2-3 years. He lives alone. He was admitted and his imaging study showed evidence of osteomyelitis in the fifth toe on the right as well as in the distal aspect of his fifth metatarsal. He underwent surgery, and had abscess as well as ray resection on the fifth metatarsal. Cultures are pending. The pathology report of the margin is pending. Patient has been afebrile. Infectious disease consultation has been requested to evaluate the patient and assist with management and treatment. Review of Systems Constitutional: COMPLAINS OF: Fever, Chills Eyes: DENIES: Eye pain Ears, nose, mouth, throat: DENIES: Nasal discharge, Oral lesions, Throat pain, Ear Pain, Sinus Pain Respiratory: DENIES: Cough, Shortness of breath Cardiovascular: DENIES: Chest pain, Palpitations, Syncope Gastrointestinal: DENIES: Diarrhea, Nausea, Vomiting, Difficulty Swallowing Genitourinary: DENIES: Hematuria, Dysuria Musculoskeletal: COMPLAINS OF: Joint pain, Joint Swelling Integumentary: DENIES: Pruritus, Rash Neurologic: DENIES: Localized weakness Psychiatric: DENIES: Hallucinations Past Family Social History Allergies: Coded Allergies: No Known Allergies (Unverified , 01/14/18) Past Medical History Diabetes, not on treatment Past Surgical History Fracture femur, ankle, from an accident Active Ordered Medications Current Medications Medications (Trade) Dose Ordered Sig/Nahomi Route Start Time Stop Time Status Last Admin (NS Flush) 2 ml UNSCH PRN IV FLUSH 01/14/18 14:00 (NS Flush) 2 ml BID IV FLUSH 01/14/18 21:00 01/16/18 21:42 (Tylenol) 650 mg Q4H PRN PO 01/14/18 14:45 (Zofran Inj) 4 mg Q6H PRN IVP 01/14/18 14:45 (Rafaela-Colace) 1 tab BID PO 01/14/18 21:00 01/17/18 09:06 (Milk Of Magnesia Liq) 30 ml Q12H PRN PO 01/14/18 14:45 (Senokot) 17.2 mg Q12H PRN PO 01/14/18 14:45 (Dulcolax Supp) 10 mg DAILY PRN RECTAL 01/14/18 14:45 (Lactulose Liq) 30 ml DAILY PRN PO 01/14/18 14:45 Cefepime HCl 1000 mg/Sodium Chloride 100 ml @ 200 mls/hr Q8H IV 01/14/18 18:00 01/17/18 09:06 Pharmacy Profile Note 0 ml @ 0 mls/hr UNSCH OTHER 01/14/18 14:45 (D50w (Vial) Inj) 50 ml UNSCH PRN IV PUSH 01/14/18 15:00 (Glucagon Inj) 1 mg UNSCH PRN OTHER 01/14/18 15:00 (NovoLOG SUPPLEMENTAL SCALE) 1 ACHS SLIDING SCALE SQ 01/14/18 17:00 01/17/18 09:05 Metronidazole 100 ml @ 100 mls/hr Q8H IV 01/15/18 00:00 01/17/18 08:03 (Dakin'S 0.25% Soln) 1,000 ml BID TOP 01/14/18 21:00 01/16/18 08:10 Vancomycin HCl 2000 mg/Sodium Chloride 520 ml @ 250 mls/hr Q18H IV 01/15/18 14:00 01/17/18 02:37 Sodium Chloride 1,000 ml @ 75 mls/hr [id number] IV 01/16/18 12:43 01/16/18 12:16 Lactated Ringer's 1,000 ml @ 30 mls/hr Q24H PRN IV 01/16/18 16:30 01/19/18 16:29 Sodium Chloride 500 ml @ 30 mls/hr [id number] PRN IV 01/16/18 16:30 01/19/18 16:29 (Lopressor) 25 mg MASTER OCEAN PRN PO 01/16/18 16:30 01/19/18 16:29 (Betadine 5% Antisepsis Kit) 1 applic MASTER OCEAN PRN EACH NARE 01/16/18 16:30 01/19/18 16:29 (Chlorhexidine 2% Cloth) 3 pack MASTER OCEAN PRN TOPICAL 01/16/18 16:30 01/19/18 16:29 (Baciguent Oint) 1 applic DAILY TOPICAL 01/17/18 09:00 Miscellaneous Information ALL NURSING DEPARTME... UNSCH PRN .XX 01/16/18 18:05 01/17/18 18:04 ([place] 5-325 Mg) 1 tab Q4H PRN PO 01/16/18 21:15 ([place] 7.5-325 Mg) 1 tab Q4H PRN PO 01/16/18 21:15 01/16/18 21:41 (Dilaudid Pf Inj) 1 mg Q3H PRN IV PUSH 01/16/18 21:15 (Narcan Inj) 0.4 mg UNSCH PRN IV PUSH 01/16/18 21:15 Family History Noncontributory Social History Lives by himself in [facility] Formerly worked with [employer] Has alcohol use, occasionally No tobacco use No illicit drug use Physical Exam Vital Signs Vital Signs Date Time Temp Pulse Resp B/P (MAP) Pulse Ox O2 Delivery O2 Flow Rate FiO2 01/17/18 08:24 95 21 01/17/18 08:17 98.3 91 18 148/88 (108) 96 01/17/18 04:00 98.5 94 20 126/83 (97) 92 01/17/18 00:00 98.4 96 18 124/63 (83) 94 01/16/18 18:30 98.5 90 16 138/71 (93) 95 Nasal Cannula 2 01/16/18 18:00 98.5 90 16 125/73 (90) 93 Nasal Cannula 2 01/16/18 15:40 92 21 Physical Exam GENERAL: Patient is an obese, well-developed patient, awake and alert, not in respiratory distress. SKIN: Warm and dry. No generalized rash, no ecchymoses and no evidence of embolic lesions. HEAD: Atraumatic. Normocephalic. No temporal wasting, or tenderness. EYES: Zihlman conjunctiva. No petechia or hemorrhage. Pupils equal, round and reactive to light. Extraocular movements full and intact. No scleral icterus. No injection or drainage. EARS, NOSE AND THROAT: Nose without bleeding or purulent nasal discharge. No sinus tenderness. Mucous membranes pink and moist. No oral lesions noted. No exudate. No oral thrush. NECK: Trachea midline. Supple and not tender, no meningeal signs CARDIOVASCULAR: Regular rate and rhythm. No murmurs, rubs or gallops heard RESPIRATORY: Clear to auscultation. Breath sounds equal bilaterally. No rales , wheezing or rhonchi ABDOMEN: Soft, non-tender, nondistended. Bowel sounds present and normoactive. No guarding. No rebound. No organomegaly. EXTREMITIES: No clubbing, cyanosis. No joint effusion, has good ROM. No calf tenderness. Well perfused and warm. Has dry and intact dressings to both feet, no lymphangitis seen in both legs or thighs NEUROLOGICAL: Awake and alert. Cranial nerves grossly intact. Motor grossly within normal limits. PSYCHIATRIC: Normal affect, calm and cooperative. LINE: No evidence of infection Laboratory Laboratory Tests Test 01/17/18 02:45 01/17/18 04:55 Vancomycin Level Trough 17.5 White Blood Count 10.7 Red Blood Count 4.07 Hemoglobin 10.9 Hematocrit 34.0 Mean Corpuscular Volume 83.4 Mean Corpuscular Hemoglobin 26.8 Mean Corpuscular Hemoglobin Concent 32.1 Red Cell Distribution Width 16.4 Platelet Count 257 Mean Platelet Volume 8.5 Neutrophils (%) (Auto) 81.1 Lymphocytes (%) (Auto) 8.4 Monocytes (%) (Auto) 9.9 Eosinophils (%) (Auto) 0.3 Basophils (%) (Auto) 0.3 Neutrophils # (Auto) 8.6 Lymphocytes # (Auto) 0.9 Monocytes # (Auto) 1.1 Eosinophils # (Auto) 0.0 Basophils # (Auto) 0.0 CBC Comment DIFF FINAL Differential Comment Blood Urea Nitrogen 18 Creatinine 1.39 Random Glucose 226 Total Protein 6.9 Albumin 2.2 Calcium Level 8.0 Alkaline Phosphatase 179 Aspartate Amino Transf (AST/SGOT) 9 Alanine Aminotransferase (ALT/SGPT) 14 Total Bilirubin 0.7 Sodium Level 140 Potassium Level 4.2 Chloride Level 109 Carbon Dioxide Level 21.6 Anion Gap 9 Estimat Glomerular Filtration Rate 51 Date/Time Source Procedure Growth Status 01/14/18 11:25 Blood Peripheral Aerobic Blood Culture - Preliminary NO GROWTH IN 3 DAYS Resulted 01/14/18 11:25 Blood Peripheral Anaerobic Blood Culture - Preliminary NO GROWTH IN 3 DAYS Resulted 01/16/18 17:26 Wound Foot Fungal Smear - Final NO FUNGAL ELEMENTS SEEN. Resulted 01/16/18 17:26 Wound Foot Fungal Culture Pending Resulted Result Diagram: 01/17/18 0455 01/17/18 0455 Imaging RADIOLOGY STUDIES/FILMS REVIEWED Last Impressions Carotid Artery Ultrasound 01/15/18 0000 Signed Impressions: Service Date/Time: December 11:48 - CONCLUSION: 1. Elevated peak systolic velocity of the right internal carotid artery at elevated ICA/ CCA ratio suggesting 50-69%% stenosis of the right ICA. 2. No significant left carotid stenosis. Hesham Wheat MD Foot X-Ray 01/14/18 0000 Signed Impressions: Service Date/Time: Sunday, January 14, 2018 17:43 - CONCLUSION: 1. Small cutaneous ulcer along the ball of foot. 2. Degenerative changes are seen throughout the foot. 3. No bony destruction. Claude Gaviria MD Foot MRI 01/14/18 0000 Signed Impressions: Service Date/Time: Sunday, January 14, 2018 19:52 - CONCLUSION: Osteomyelitis at the fifth proximal phalanx and at the distal aspect of the metatarsal of the fifth metatarsal head region. Eric Resendiz MD Assessment and Plan Assessment and Plan IMPRESSION Infection R foot, with osteo of 5th toe and distal 5th MT, S/P ray resection - C/S pending - path report pending DM, not compliant with treatment Renal insufficiency RECOMMENDATION Continue vancomycin Continue cefepime Follow cultures and path report Further recommendations to follow once culture and path report are available If margins are clear, then he will likely need just a short course fundi biotics. I would like to examine the right foot prior to making any final determination Monitor progress I will follow along with you. Thank you for this consultation Discussed Condition With Explained plan to the patient and family Rosalva Swan MD Jan 17, 2018 12:28
[2018-01-18 00:05] VITALS: BP 137/69; PULSE 91; RESP 18; TEMP 98.3; O2SAT 99
[2018-01-18] MEDS: CEFEPIME INJ 1,000 MG in SODIUM CHLORIDE 0.9% INJ 100 ML IV SCH ×3 (01:48→17:35)
[2018-01-18 04:15] VITALS: BP 144/90; PULSE 86; RESP 18; TEMP 98; O2SAT 98
[2018-01-18 07:12] LABS: AUTOMATED NEUTROPHIL # 6.5 TH/MM3 (1.8-7.7); BASOPHIL # 0.1 TH/MM3 (0-0.2); BASOPHIL % 0.8 % (0.0-2.0); EOSINOPHIL # 0.1 TH/MM3 (0-0.4); EOSINOPHIL % 1.5 % (0.0-4.0); HEMATOCRIT 33.2 % (39.0-51.0); LYMPH % 12.1 % (9.0-44.0); MEAN CORPUSCULAR HEMOGLOBIN 27.5 PG (27.0-34.0); MEAN CORPUSCULAR HGB CONC 33.2 % (32.0-36.0); MEAN PLATELET VOLUME 8.4 FL (7.0-11.0); MONO % 10.4 % (0.0-8.0); MONOCYTE # 0.9 TH/MM3 (0-0.9); NEUT % 75.2 % (16.0-70.0); PLATELET COUNT 267 TH/MM3 (150-450); RED CELL DISTRIBUTION WIDTH 16.7 % (11.6-17.2); WHITE BLOOD COUNT 8.6 TH/MM3 (4.0-11.0)
[2018-01-18 07:42] LABS: BICARBONATE 22.2 MEQ/L (21.0-32.0); CALCIUM 8.4 MG/DL (8.5-10.1); CREATININE 1.39 MG/DL (0.60-1.30)
[2018-01-18] MEDS: metroNIDAZOLE 500 MG INJ 100 ML IV SCH ×2 (08:15→16:17)
[2018-01-18 08:27] VITALS: BP 143/88; PULSE 86; RESP 18; TEMP 97.8; O2SAT 96
[2018-01-18] MEDS: INSULIN ASPART SUPPLEMENTAL SCALE SQ SCH ×4 (08:27→21:36)
[2018-01-18] MEDS: DOCUSATE SODIUM 50 MG/SENNA 8.6 MG TAB PO SCH ×2 (08:28→21:36)
[2018-01-18] MEDS: SODIUM CHLORIDE 0.9% FLUSH 10 ML FLUSH IV FLUSH SCH ×2 (08:28→21:36)
[2018-01-18] MEDS: BACITRACIN TOP OINT 15 GM TUBE TOPICAL SCH (08:29)
[2018-01-18] MEDS: SODIUM HYPOCHLORITE 0.25% 500 ML BTL TOP SCH ×2 (08:29→21:00)
--- NOTE | 2018-01-18 11:22 | PD.POD ---
Subjective Podiatric Problems POD #2, right foot partial 5th ray amp and radical debridement and left foot wound debridement. Pt states he has been feeling well, no concerns or complaints. Past Med/Surg/Social History Social History Smoking Status: Never Smoker Objective Vital Signs Vital Signs Date Time Temp Pulse Resp B/P (MAP) Pulse Ox O2 Delivery O2 Flow Rate FiO2 01/18/18 08:27 97.8 86 18 143/88 (106) 96 01/18/18 04:15 98.0 86 18 144/90 (108) 98 01/18/18 00:05 98.3 91 18 137/69 (91) 99 01/17/18 21:48 97 21 01/17/18 20:00 98.5 94 18 143/75 (97) 92 01/17/18 16:00 98.1 90 18 130/82 (98) 95 01/17/18 12:26 99.3 93 18 136/81 (99) 95 Coded Allergies: No Known Allergies (Unverified , 01/14/18) Physical Exam Remarks Left submet 1 ulcer 0.75cm x0.75cm x 0.25, fibrogranular wound bed, no erythema , slight serous drainage Right foot all sutures intact and skin edges are well coapted, partial 5th ray amp noted, ecchymosis and maceration to the plantar incision questionable early ischemia Calves are supple and non tender to compression Assessment & Plan A/P 1) POD #2, right foot partial 5th ray amp and radical debridement and left foot wound debridement - dressing changed today, both feet have improved very well -clean margin bone biopsies pending -heel WBing b/l with walker -cont abx per ID, nurses provided with dressing change instructions if surgical sites need evaluation -next dressing change friday with Jasmin Mcknight DPM Jan 18, 2018 11:22
--- NOTE | 2018-01-18 11:25 | HHI.FPPN ---
Subjective Remarks Patient was seen and evaluated this morning. He feels well overall. He experiences some shortness of breath when laying down; he continues to be on 2L of oxygen. Patient denies chest pain, heart palpitations, nausea/vomiting, diarrhea and constipation. All questions were answered. Objective Vitals Vital Signs Date Time Temp Pulse Resp B/P (MAP) Pulse Ox O2 Delivery O2 Flow Rate FiO2 01/18/18 08:27 97.8 86 18 143/88 (106) 96 01/18/18 04:15 98.0 86 18 144/90 (108) 98 01/18/18 00:05 98.3 91 18 137/69 (91) 99 01/17/18 21:48 97 21 01/17/18 20:00 98.5 94 18 143/75 (97) 92 01/17/18 16:00 98.1 90 18 130/82 (98) 95 01/17/18 12:26 99.3 93 18 136/81 (99) 95 I/O 01/17/18 01/17/18 01/17/18 01/18/18 01/18/18 01/18/18 07:00 15:00 23:00 07:00 15:00 23:00 Intake Total 480 ml Output Total 200 ml Balance -200 ml 480 ml Intake Oral 480 ml Output Urine Total 200 ml # Voids 0 3 2 4 # Bowel Movements 0 2 Result Diagram: 01/18/18 0615 01/18/18 0615 Objective Remarks GEN: Well-developed, well-nourished patient. No acute distress. Sitting up on side of bed comfortably. CV: Regular rate and rhythm without obvious murmurs. LUNGS: Good air movement bilaterally but with crackles in bilateral lung bases. Normal respiratory effort. No wheezes. GI: Soft non distended, nontender. EXTREMITIES: Both R and L foot wrapped in gauze that is clean, dry and intact. No noticeable swelling/erythema outside of the dressing. Sensation intact in toes with appropriate capillary refill, movement of toes intact. NEURO/PSYCH: Awake, alert. Appropriate insight and judgment. Normal speech Medications and IVs Current Medications Medications (Trade) Dose Ordered Sig/Nahomi Route Start Time Stop Time Status Last Admin (NS Flush) 2 ml UNSCH PRN IV FLUSH 01/14/18 14:00 (NS Flush) 2 ml BID IV FLUSH 01/14/18 21:00 01/18/18 08:28 (Tylenol) 650 mg Q4H PRN PO 01/14/18 14:45 (Zofran Inj) 4 mg Q6H PRN IVP 01/14/18 14:45 (Rafaela-Colace) 1 tab BID PO 01/14/18 21:00 01/18/18 08:28 (Milk Of Magnesia Liq) 30 ml Q12H PRN PO 01/14/18 14:45 (Senokot) 17.2 mg Q12H PRN PO 01/14/18 14:45 (Dulcolax Supp) 10 mg DAILY PRN RECTAL 01/14/18 14:45 (Lactulose Liq) 30 ml DAILY PRN PO 01/14/18 14:45 Cefepime HCl 1000 mg/Sodium Chloride 100 ml @ 200 mls/hr Q8H IV 01/14/18 18:00 01/18/18 17:35 Pharmacy Profile Note 0 ml @ 0 mls/hr UNSCH OTHER 01/14/18 14:45 (D50w (Vial) Inj) 50 ml UNSCH PRN IV PUSH 01/14/18 15:00 (Glucagon Inj) 1 mg UNSCH PRN OTHER 01/14/18 15:00 (NovoLOG SUPPLEMENTAL SCALE) 1 ACHS SLIDING SCALE SQ 01/14/18 17:00 01/18/18 17:34 Metronidazole 100 ml @ 100 mls/hr Q8H IV 01/15/18 00:00 01/18/18 16:17 (Dakin'S 0.25% Soln) 1,000 ml BID TOP 01/14/18 21:00 01/16/18 08:10 Vancomycin HCl 2000 mg/Sodium Chloride 520 ml @ 250 mls/hr Q18H IV 01/15/18 14:00 01/18/18 12:54 Lactated Ringer's 1,000 ml @ 30 mls/hr Q24H PRN IV 01/16/18 16:30 01/19/18 16:29 Sodium Chloride 500 ml @ 30 mls/hr [id number] PRN IV 01/16/18 16:30 01/19/18 16:29 (Lopressor) 25 mg REGIONAL OPERATIONS MANAGER PRN PO 01/16/18 16:30 01/19/18 16:29 (Betadine 5% Antisepsis Kit) 1 applic REGIONAL OPERATIONS MANAGER PRN EACH NARE 01/16/18 16:30 01/19/18 16:29 (Chlorhexidine 2% Cloth) 3 pack REGIONAL OPERATIONS MANAGER PRN TOPICAL 01/16/18 16:30 01/19/18 16:29 (Baciguent Oint) 1 applic DAILY TOPICAL 01/17/18 09:00 ([place] 5-325 Mg) 1 tab Q4H PRN PO 01/16/18 21:15 ([place] 7.5-325 Mg) 1 tab Q4H PRN PO 01/16/18 21:15 01/16/18 21:41 (Dilaudid Pf Inj) 1 mg Q3H PRN IV PUSH 01/16/18 21:15 (Narcan Inj) 0.4 mg UNSCH PRN IV PUSH 01/16/18 21:15 Miscellaneous Information SPECIFIC LAB TO BE DRAWN:VANCO TROUGH DATE... ONCE ONCE .XX 01/20/18 01:45 01/20/18 01:46 Urinary Catheter: No Vascular Central Line Catheter: No A/P Assessment and Plan 67-year-old male with history significant for diabetes that is not currently being controlled. Admitted for right foot osteomyelitis. Patient did meet sepsis criteria on admission. Started on Vanc, Cefepime, Flagyl since admission. S/P R foot I&D, debridement and partial amputation of 5th metatarsal as well as L foot wound debridement on 01/16. Cultures pending. 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 PT recommending inpatient rehab. Problem List: (1) Osteomyelitis ICD Codes: M86.9 - Osteomyelitis, unspecified Plan: Found to have osteomyelitis on right foot involving fifth proximal phalanx in the distal aspect of the metatarsal of the fifth metatarsal head. ESR and CRP elevated on admission but down trending. Left foot with wound but appears to be more superficial. -closely monitor left foot wound. -Carotid US performed due to decreased palpable pulses in anticipation of surgery. Show right carotid stenosis of 50-69%. Patient is currently asymptomatic. Podiatry consulted: appreciate recommendations * R foot I&D, debridement and partial amputation of 5th metatarsal as well as L foot wound debridement on 01/16 * Continue IV antibiotics * Nonweightbearing * PT recommending inpatient rehab after DC * Cultures pending Imaging: * Right Foot MRI: Osteomyelitis at the fifth proximal phalanx and at the distal aspect of the metatarsal of the fifth metatarsal head region. * Right Foot XR: Diffuse soft tissue swelling with some air in the soft tissues suggesting infection and possible gangrene. * Left Foot MRI: Abnormal signal in the tibial sesamoid at the first metatarsal head region concern for possible inflammatory change in osteomyelitis. There are prominent thickening of the distal Achilles tendon consistent with very prominent tendinosis/tendinopathy. * Left Foot XR: Small cutaneous ulcer along the ball of foot. No bony destruction Medications: * Cefepime (01/14- * Vancomycin (01/14- * Metronidazole (01/14- * [place] pain scale (2) Sepsis ICD Codes: A41.9 - Sepsis, unspecified organism Status: Resolved Plan: Met Sepsis criteria on admission with tachycardia and leukocytosis. Likely source is R foot wound Blood cultures NGTD -Currently resolved -see more detailed plan above. (3) Diabetes ICD Codes: E11.9 - Type 2 diabetes mellitus without complications Plan: Patient with known history of DM, was treated with Metformin 4 years ago but hasn't been on medication for past 2-3 years Random glucose of 243 on admission Low dose sliding scale A1C elevated at 10.3 Currently well-controlled on sliding scale (4) GABRIEL (acute kidney injury) ICD Codes: N17.9 - Acute kidney failure, unspecified Plan: Creatinine elevated to 1.45 on admission. No known baseline Has been stable - currently 1.39 Held fluids on 01/15 due to crackles on exam Resumed IVF on 01/17 as patient was NPO - stopping IVF on 01/17 Trending BMP (5) Left foot wound Plan: Wound on plantar surface of L foot Wound was debrided by Podiatry on 01/16 - will follow recs for wound care (6) FEN Plan: F: DC'ing IVF on 01/17 E: will replete as needed N: Diabetic diet DVT: holding after procedure, SCDs for now GI PPX: not indicated Gracy Nice MD R1 Jan 18, 2018 11:25
[2018-01-18 12:00] VITALS: BP 141/94; PULSE 89; RESP 18; TEMP 97.4; O2SAT 96
[2018-01-18] MEDS: VANCOMYCIN INJ 2,000 MG in SODIUM CHLORID 0.9% 500 ML INJ 500 ML IV SCH (12:54)
[2018-01-18 16:44] VITALS: BP 144/94; PULSE 87; RESP 18; TEMP 97.6; O2SAT 94
[2018-01-18 20:25] VITALS: BP 146/78; PULSE 91; RESP 18; TEMP 97.8; O2SAT 96
[2018-01-19] VITALS (8 sets, daily range): BP systolic 139–167; BP diastolic 85–97; PULSE 91–95; RESP 16–18; TEMP 97.1–98; O2SAT 93–99
[2018-01-19] MEDS: CEFEPIME INJ 1,000 MG in SODIUM CHLORIDE 0.9% INJ 100 ML IV SCH ×2 (00:42→09:07)
[2018-01-19] MEDS: metroNIDAZOLE 500 MG INJ 100 ML IV SCH ×2 (00:42→09:12)
[2018-01-19] MEDS: INSULIN ASPART SUPPLEMENTAL SCALE SQ SCH ×4 (08:00→21:09)
[2018-01-19] MEDS: SODIUM HYPOCHLORITE 0.25% 500 ML BTL TOP SCH ×2 (09:00→21:00)
[2018-01-19] MEDS: BACITRACIN TOP OINT 15 GM TUBE TOPICAL SCH (09:00)
[2018-01-19] MEDS: DOCUSATE SODIUM 50 MG/SENNA 8.6 MG TAB PO SCH ×2 (09:16→21:10)
[2018-01-19] MEDS: SODIUM CHLORIDE 0.9% FLUSH 10 ML FLUSH IV FLUSH SCH ×2 (09:16→21:10)
[2018-01-19] MEDS: VANCOMYCIN INJ 2,000 MG in SODIUM CHLORID 0.9% 500 ML INJ 500 ML IV SCH (10:11)
[2018-01-19] MEDS: LISINOPRIL 10 MG TAB PO SCH (11:50)
--- NOTE | 2018-01-19 12:10 | HHI.FPPN ---
Subjective Remarks Patient was seen and evaluated this morning. He feels well overall. He experiences some shortness of breath when laying down; he continues to be on 2L of oxygen. Patient denies chest pain, heart palpitations, nausea/vomiting, diarrhea and constipation. All questions were answered. Objective Vitals Vital Signs Date Time Temp Pulse Resp B/P (MAP) Pulse Ox O2 Delivery O2 Flow Rate FiO2 01/19/18 10:06 99 Nasal Cannula 2.00 01/19/18 08:00 98.0 94 16 167/95 (119) 97 01/19/18 04:30 97.1 91 18 160/97 (118) 93 01/19/18 00:00 97.1 92 18 139/85 (103) 98 01/18/18 22:12 21 01/18/18 20:25 97.8 91 18 146/78 (100) 96 01/18/18 16:44 97.6 87 18 144/94 (111) 94 I/O 01/18/18 01/18/18 01/18/18 01/19/18 01/19/18 01/19/18 07:00 15:00 23:00 07:00 15:00 23:00 Intake Total 580 ml 200 ml Output Total 300 ml 475 ml 650 ml Balance 280 ml -275 ml -650 ml Intake Oral 580 ml IV Total 200 ml Output Urine Total 300 ml 475 ml 650 ml # Voids 4 3 1 # Bowel Movements 1 Result Diagram: 01/18/18 0615 01/18/18 0615 Objective Remarks GENERAL: Well-developed, well-nourished patient. No acute distress. Sitting up on side of bed comfortably. SKIN: Warm and dry. HEAD: Atraumatic. Normocephalic. EYES: Pupils equal and round. No scleral icterus. No injection or drainage. ENT: No nasal bleeding or discharge. Mucous membranes pink and moist. NECK: Trachea midline. No JVD. CARDIOVASCULAR: Regular rate and rhythm. RESPIRATORY: No accessory muscle use. Good air movement bilaterally but with crackles in bilateral lung bases. GASTROINTESTINAL: Abdomen soft, non-tender, nondistended. Hepatic and splenic margins not palpable. MUSCULOSKELETAL: Both right and left foot wrapped in gauze that is clean, dry and intact. No noticeable swelling/erythema outside of the dressing. Sensation intact in toes with appropriate capillary refill, movement of toes intact. NEUROLOGICAL: Awake and alert. No obvious cranial nerve deficits. Motor grossly within normal limits. Five out of 5 muscle strength in the arms and legs. Normal speech. PSYCHIATRIC: Appropriate mood and affect; insight and judgment normal. Medications and IVs Current Medications Medications (Trade) Dose Ordered Sig/Nahomi Route Start Time Stop Time Status Last Admin (NS Flush) 2 ml UNSCH PRN IV FLUSH 01/14/18 14:00 (NS Flush) 2 ml BID IV FLUSH 01/14/18 21:00 01/19/18 09:16 (Tylenol) 650 mg Q4H PRN PO 01/14/18 14:45 (Zofran Inj) 4 mg Q6H PRN IVP 01/14/18 14:45 (Rafaela-Colace) 1 tab BID PO 01/14/18 21:00 01/19/18 09:16 (Milk Of Magnesia Liq) 30 ml Q12H PRN PO 01/14/18 14:45 (Senokot) 17.2 mg Q12H PRN PO 01/14/18 14:45 (Dulcolax Supp) 10 mg DAILY PRN RECTAL 01/14/18 14:45 (Lactulose Liq) 30 ml DAILY PRN PO 01/14/18 14:45 Pharmacy Profile Note 0 ml @ 0 mls/hr UNSCH OTHER 01/14/18 14:45 (D50w (Vial) Inj) 50 ml UNSCH PRN IV PUSH 01/14/18 15:00 (Glucagon Inj) 1 mg UNSCH PRN OTHER 01/14/18 15:00 (NovoLOG SUPPLEMENTAL SCALE) 1 ACHS SLIDING SCALE SQ 01/14/18 17:00 01/19/18 12:07 ([place] 0.25% Soln) 1,000 ml BID TOP 01/14/18 21:00 01/16/18 08:10 Vancomycin HCl 2000 mg/Sodium Chloride 520 ml @ 250 mls/hr Q18H IV 01/15/18 14:00 01/19/18 10:11 Lactated Ringer's 1,000 ml @ 30 mls/hr Q24H PRN IV 01/16/18 16:30 01/19/18 16:29 Sodium Chloride 500 ml @ 30 mls/hr [id number] PRN IV 01/16/18 16:30 01/19/18 16:29 (Lopressor) 25 mg [employer] PRN PO 01/16/18 16:30 01/19/18 16:29 (Betadine 5% Antisepsis Kit) 1 applic [employer] PRN EACH NARE 01/16/18 16:30 01/19/18 16:29 (Chlorhexidine 2% Cloth) 3 pack [employer] PRN TOPICAL 01/16/18 16:30 01/19/18 16:29 (Baciguent Oint) 1 applic DAILY TOPICAL 01/17/18 09:00 ([place] 5-325 Mg) 1 tab Q4H PRN PO 01/16/18 21:15 ([place] 7.5-325 Mg) 1 tab Q4H PRN PO 01/16/18 21:15 01/16/18 21:41 (Dilaudid Pf Inj) 1 mg Q3H PRN IV PUSH 01/16/18 21:15 (Narcan Inj) 0.4 mg UNSCH PRN IV PUSH 01/16/18 21:15 Miscellaneous Information SPECIFIC LAB TO BE DRAWN:VANCO TROUGH DATE... ONCE ONCE .XX 01/20/18 01:45 01/20/18 01:46 (Prinivil) 10 mg DAILY PO 01/19/18 10:30 01/19/18 11:50 (Cipro) 500 mg Q12HR PO 01/19/18 21:00 Urinary Catheter: No Vascular Central Line Catheter: No A/P Assessment and Plan 67-year-old male with history significant for diabetes that is not currently being controlled. Admitted for right foot osteomyelitis. Patient met sepsis criteria on admission. Started on Vanc, Cefepime, Flagyl since admission. S/P R foot I&D, debridement and partial amputation of 5th metatarsal as well as left foot wound debridement on 01/16. Cultures negative. Pathology pending. Discharge Planning halfway antibiotic plan pending pathology results. PT recommending inpatient rehab. Problem List: (1) Osteomyelitis ICD Codes: M86.9 - Osteomyelitis, unspecified Plan: Found to have osteomyelitis on right foot involving fifth proximal phalanx in the distal aspect of the metatarsal of the fifth metatarsal head. Podiatry consulted: * R foot I&D, debridement and partial amputation of 5th metatarsal as well as L foot wound debridement on 01/16. * Continue IV antibiotics. * Heal weightbearing with walker. * PT recommending inpatient rehab after DC * Cultures negative. * Pathology pending. Imaging: * Right Foot MRI: Osteomyelitis at the fifth proximal phalanx and at the distal aspect of the metatarsal of the fifth metatarsal head region. * Right Foot XR: Diffuse soft tissue swelling with some air in the soft tissues suggesting infection and possible gangrene. * Left Foot MRI: Abnormal signal in the tibial sesamoid at the first metatarsal head region concern for possible inflammatory change in osteomyelitis. There are prominent thickening of the distal Achilles tendon consistent with very prominent tendinosis/tendinopathy. * Left Foot XR: Small cutaneous ulcer along the ball of foot. No bony destruction. Medications: * Cefepime (01/14-01/19) * Vancomycin (01/14- * Metronidazole (01/14-01/19) * Cipro (01/19- ) * [place] pain scale (2) Sepsis ICD Codes: A41.9 - Sepsis, unspecified organism Status: Resolved Plan: Met Sepsis criteria on admission with tachycardia and leukocytosis. Likely source is right foot wound. Blood cultures: no growth to date. * Currently resolved. * See more detailed plan above. (3) Diabetes ICD Codes: E11.9 - Type 2 diabetes mellitus without complications Plan: Patient with known history of DM, was treated with Metformin 4 years ago but hasn't been on medication for past 2-3 years. Random glucose of 243 on admission. Low dose sliding scale. A1C elevated at 10.3. Currently well-controlled on sliding scale. (4) GABRIEL (acute kidney injury) ICD Codes: N17.9 - Acute kidney failure, unspecified Plan: Creatinine elevated to 1.45 on admission. No known baseline. Has been stable - currently 1.39. Held fluids on 01/15 due to crackles on exam. Resumed IVF on 01/17 as patient was NPO - stopped IVF on 01/17. Trending BMP. (5) Left foot wound Plan: Wound on plantar surface of left foot. Wound was debrided by Podiatry on 01/16 - will follow recs for wound care. (6) FEN Plan: F: DC'ing IVF on 01/17. E: Will replete as needed. N: Diabetic diet. DVT: Lovenox 40mg and SCDs. GI PPX: Not indicated. Gracy Nice MD R1 Jan 19, 2018 12:10
--- NOTE | 2018-01-19 12:51 | HHI.IDPN ---
Subjective Subjective Remarks Patient is a 67-year-old male, presented to the hospital complaining of redness and swelling on his right foot. He apparently has had an ulcer on the lateral aspect of his right foot for the last 5 months. He has not really been taking care of it, and it had gotten worse. Over the last several weeks he has noted redness and swelling, and also noted some drainage. It was noted that it was bloody. There was no mention of any foul-smelling discharge. He has had some subjective fevers over the last 4-5 days, but has not taken his temperature because he has no thermometer. There's been no respiratory complaint GI or any urinary complaint. Patient apparently has been diagnosed to have diabetes, and was supposed to be on Glucophage, but he has not taken any diabetic medication over the last 2-3 years. He lives alone. He was admitted and his imaging study showed evidence of osteomyelitis in the fifth toe on the right as well as in the distal aspect of his fifth metatarsal. He underwent surgery, and had abscess as well as ray resection on the fifth metatarsal. Cultures are pending. The pathology report of the margin is pending. Patient has been afebrile. Infectious disease consultation has been requested to evaluate the patient and assist with management and treatment. Notes reviewed No fever No pain OR C/S negative (was on Abx prior to surgery) Path pending Antibiotics Vanco Cefepime Flagyl Current Medications Medications (Trade) Dose Ordered Sig/Nahomi Route Start Time Stop Time Status Last Admin (NS Flush) 2 ml UNSCH PRN IV FLUSH 01/14/18 14:00 (NS Flush) 2 ml BID IV FLUSH 01/14/18 21:00 01/19/18 09:16 (Tylenol) 650 mg Q4H PRN PO 01/14/18 14:45 (Zofran Inj) 4 mg Q6H PRN IVP 01/14/18 14:45 (Rafaela-Colace) 1 tab BID PO 01/14/18 21:00 01/19/18 09:16 (Milk Of Magnesia Liq) 30 ml Q12H PRN PO 01/14/18 14:45 (Senokot) 17.2 mg Q12H PRN PO 01/14/18 14:45 (Dulcolax Supp) 10 mg DAILY PRN RECTAL 01/14/18 14:45 (Lactulose Liq) 30 ml DAILY PRN PO 01/14/18 14:45 Cefepime HCl 1000 mg/Sodium Chloride 100 ml @ 200 mls/hr Q8H IV 01/14/18 18:00 01/19/18 09:07 Pharmacy Profile Note 0 ml @ 0 mls/hr UNSCH OTHER 01/14/18 14:45 (D50w (Vial) Inj) 50 ml UNSCH PRN IV PUSH 01/14/18 15:00 (Glucagon Inj) 1 mg UNSCH PRN OTHER 01/14/18 15:00 (NovoLOG SUPPLEMENTAL SCALE) 1 ACHS SLIDING SCALE SQ 01/14/18 17:00 01/19/18 12:07 Metronidazole 100 ml @ 100 mls/hr Q8H IV 01/15/18 00:00 01/19/18 09:12 (Dakin'S 0.25% Soln) 1,000 ml BID TOP 01/14/18 21:00 01/16/18 08:10 Vancomycin HCl 2000 mg/Sodium Chloride 520 ml @ 250 mls/hr Q18H IV 01/15/18 14:00 01/19/18 10:11 Lactated Ringer's 1,000 ml @ 30 mls/hr Q24H PRN IV 01/16/18 16:30 01/19/18 16:29 Sodium Chloride 500 ml @ 30 mls/hr [id number] PRN IV 01/16/18 16:30 01/19/18 16:29 (Lopressor) [address] [employer] PRN PO 01/16/18 16:30 01/19/18 16:29 (Betadine 5% Antisepsis Kit) [address] [employer] PRN EACH NARE 01/16/18 16:30 01/19/18 16:29 (Chlorhexidine 2% Cloth) [address] [employer] PRN TOPICAL 01/16/18 16:30 01/19/18 16:29 (Baciguent Oint) 1 applic DAILY TOPICAL 01/17/18 09:00 ([place] 5-325 Mg) 1 tab Q4H PRN PO 01/16/18 21:15 ([place] 7.5-325 Mg) 1 tab Q4H PRN PO 01/16/18 21:15 01/16/18 21:41 (Dilaudid Pf Inj) 1 mg Q3H PRN IV PUSH 01/16/18 21:15 (Narcan Inj) 0.4 mg UNSCH PRN IV PUSH 01/16/18 21:15 Miscellaneous Information SPECIFIC LAB TO BE DRAWN:VANCO TROUGH DATE... ONCE ONCE .XX 01/20/18 01:45 01/20/18 01:46 (Prinivil) 10 mg DAILY PO 01/19/18 10:30 01/19/18 11:50 Lines Line with no evidence of infection Past Medical History Diabetes, not on treatment Past Surgical History Fracture femur, ankle, from an accident Allergies: Coded Allergies: No Known Allergies (Unverified , 01/14/18) Objective . Vital Signs Date Time Temp Pulse Resp B/P (MAP) Pulse Ox O2 Delivery O2 Flow Rate FiO2 01/19/18 10:06 99 Nasal Cannula 2.00 01/19/18 08:00 98.0 94 16 167/95 (119) 97 01/19/18 04:30 97.1 91 18 160/97 (118) 93 01/19/18 00:00 97.1 92 18 139/85 (103) 98 01/18/18 22:12 21 01/18/18 20:25 97.8 91 18 146/78 (100) 96 01/18/18 16:44 97.6 87 18 144/94 (111) 94 01/19/18 01/19/18 01/20/18 15:00 23:00 07:00 Output Total 650 ml Balance -650 ml Output Urine Total 650 ml . Laboratory Tests Test 01/18/18 06:15 White Blood Count 8.6 TH/MM3 Red Blood Count 4.00 MIL/MM3 Hemoglobin 11.0 GM/DL Hematocrit 33.2 % Mean Corpuscular Volume 83.0 FL Mean Corpuscular Hemoglobin 27.5 PG Mean Corpuscular Hemoglobin Concent 33.2 % Red Cell Distribution Width 16.7 % Platelet Count 267 TH/MM3 Mean Platelet Volume 8.4 FL Neutrophils (%) (Auto) 75.2 % Lymphocytes (%) (Auto) 12.1 % Monocytes (%) (Auto) 10.4 % Eosinophils (%) (Auto) 1.5 % Basophils (%) (Auto) 0.8 % Neutrophils # (Auto) 6.5 TH/MM3 Lymphocytes # (Auto) 1.0 TH/MM3 Monocytes # (Auto) 0.9 TH/MM3 Eosinophils # (Auto) 0.1 TH/MM3 Basophils # (Auto) 0.1 TH/MM3 CBC Comment DIFF FINAL Differential Comment Laboratory Tests Test 01/18/18 06:15 Blood Urea Nitrogen 19 MG/DL Creatinine 1.39 MG/DL Random Glucose 184 MG/DL Calcium Level 8.4 MG/DL Sodium Level 138 MEQ/L Potassium Level 4.0 MEQ/L Chloride Level 108 MEQ/L Carbon Dioxide Level 22.2 MEQ/L Anion Gap 8 MEQ/L Estimat Glomerular Filtration Rate 51 ML/MIN Microbiology Date/Time Source Procedure Growth Status 01/16/18 17:26 Wound Foot Fungal Smear - Final NO FUNGAL ELEMENTS SEEN. Resulted 01/16/18 17:26 Wound Foot Fungal Culture Pending Resulted 01/16/18 17:26 Wound Foot Acid Fast Stain - Final NO ACID FAST BACILLI SEEN Resulted 01/16/18 17:26 Wound Foot Mycobacterial Culture Pending Resulted 01/16/18 17:26 Wound Foot Gram Stain - Final Complete 01/16/18 17:26 Wound Foot Wound Culture - Final NO GROWTH IN 72 HRS.--AEROBICALLY OR ... Complete Imaging Last Impressions Carotid Artery Ultrasound 01/15/18 0000 Signed Impressions: Service Date/Time: December 11:48 - CONCLUSION: 1. Elevated peak systolic velocity of the right internal carotid artery at elevated ICA/ CCA ratio suggesting 50-69%% stenosis of the right ICA. 2. No significant left carotid stenosis. Hesham Wheat MD Foot X-Ray 01/14/18 0000 Signed Impressions: Service Date/Time: Sunday, January 14, 2018 17:43 - CONCLUSION: 1. Small cutaneous ulcer along the ball of foot. 2. Degenerative changes are seen throughout the foot. 3. No bony destruction. Claude Gaviria MD Foot MRI 01/14/18 0000 Signed Impressions: Service Date/Time: Sunday, January 14, 2018 19:52 - CONCLUSION: Osteomyelitis at the fifth proximal phalanx and at the distal aspect of the metatarsal of the fifth metatarsal head region. Eric Resendiz MD Physical Exam GENERAL: awake and alert, not in respiratory distress. Up in chair SKIN: Warm and dry. No generalized rash, no ecchymoses and no evidence of embolic lesions. HEAD: Atraumatic. Normocephalic. No temporal wasting, or tenderness. EYES: [place] conjunctiva. No petechia or hemorrhage. Pupils equal, round and reactive to light. Extraocular movements full and intact. No scleral icterus. No injection or drainage. EARS, NOSE AND THROAT: Nose without bleeding or purulent nasal discharge. No sinus tenderness. Mucous membranes pink and moist. No oral lesions noted. No exudate. No oral thrush. NECK: Trachea midline. Supple and not tender, no meningeal signs CARDIOVASCULAR: Regular rate and rhythm. No murmurs, rubs or gallops heard RESPIRATORY: Clear to auscultation. Breath sounds equal bilaterally. No rales , wheezing or rhonchi ABDOMEN: Soft, non-tender, nondistended. Bowel sounds present and normoactive. No guarding. No rebound. No organomegaly. EXTREMITIES: No clubbing, cyanosis. No joint effusion, has good ROM. Has dry and intact dressings to both feet, no lymphangitis seen in both legs or thighs. R foot incision ok, with some ecchymoses NEUROLOGICAL: Awake and alert. Cranial nerves grossly intact. Motor grossly within normal limits. PSYCHIATRIC: Normal affect, calm and cooperative. LINE: No evidence of infection Assessment & Plan Remarks IMPRESSION Infection R foot, with osteo of 5th toe and distal 5th MT, S/P ray resection - C/S negative, ?due to prior Abx; G/S with GPR - path report pending DM, not compliant with treatment Renal insufficiency RECOMMENDATION Continue vancomycin Stop cefepime Stop Flagyl Cipro for GNR coverage Await path report If path or clean margin shows no osteo, give oralAbx x 10-14 days (Cipro and Clinda) If margin (+) osteo, he will need IV Abx - prob VAnco IV and po Cipro x 6 weeks Follow cultures and path report Monitor progress Dr Bo Alexandra covering in my absence 01/20-01/25 Rosalva Swan MD Jan 19, 2018 12:51
[2018-01-19 17:55] LABS: AUTOMATED NEUTROPHIL # 6.3 TH/MM3 (1.8-7.7); BASOPHIL % 0.5 % (0.0-2.0); EOSINOPHIL # 0.1 TH/MM3 (0-0.4); EOSINOPHIL % 1.6 % (0.0-4.0); HEMATOCRIT 36.7 % (39.0-51.0); HEMOGLOBIN 11.9 GM/DL (13.0-17.0); LYMPH % 12.1 % (9.0-44.0); MEAN CELL VOLUME 83.7 FL (80.0-100.0); MEAN CORPUSCULAR HEMOGLOBIN 27.1 PG (27.0-34.0); MEAN CORPUSCULAR HGB CONC 32.4 % (32.0-36.0); MEAN PLATELET VOLUME 8.3 FL (7.0-11.0); MONO % 8.8 % (0.0-8.0); MONOCYTE # 0.7 TH/MM3 (0-0.9); PLATELET COUNT 301 TH/MM3 (150-450); RED BLOOD COUNT 4.38 MIL/MM3 (4.50-5.90); RED CELL DISTRIBUTION WIDTH 16.7 % (11.6-17.2); WHITE BLOOD COUNT 8.1 TH/MM3 (4.0-11.0)
[2018-01-19 18:08] LABS: BICARBONATE 22.1 MEQ/L (21.0-32.0); CALCIUM 8.1 MG/DL (8.5-10.1); CREATININE 1.32 MG/DL (0.60-1.30)
[2018-01-19] MEDS: ENOXAPARIN SODIUM 40 MG/0.4 ML SYRINGE SQ SCH (18:21)
[2018-01-19] MEDS: CIPROFLOXACIN 500 MG TAB PO SCH (21:10)
[2018-01-20] VITALS (7 sets, daily range): BP systolic 134–154; BP diastolic 74–96; PULSE 85–93; RESP 17–18; TEMP 97.5–98.3; O2SAT 95–97
[2018-01-20] MEDS: VANCOMYCIN INJ 2,000 MG in SODIUM CHLORID 0.9% 500 ML INJ 500 ML IV SCH (01:36)
[2018-01-20] MEDS ORDERED: PHARMACY ORDERED LAB ONE (01:45)
[2018-01-20 02:23] LABS: CREATININE 1.25 MG/DL (0.60-1.30)
[2018-01-20 02:24] LABS: VANCOMYCIN TROUGH 20.9 MCG/ML (5.0-10.0)
[2018-01-20] MEDS: INSULIN ASPART SUPPLEMENTAL SCALE SQ SCH ×4 (07:52→21:42)
[2018-01-20] MEDS: SODIUM CHLORIDE 0.9% FLUSH 10 ML FLUSH IV FLUSH SCH ×2 (07:53→20:30)
[2018-01-20] MEDS: SODIUM HYPOCHLORITE 0.25% 500 ML BTL TOP SCH ×2 (07:53→20:31)
[2018-01-20] MEDS: BACITRACIN TOP OINT 15 GM TUBE TOPICAL SCH (07:53)
[2018-01-20] MEDS: DOCUSATE SODIUM 50 MG/SENNA 8.6 MG TAB PO SCH ×2 (07:54→20:30)
[2018-01-20] MEDS: LISINOPRIL 10 MG TAB PO SCH (07:54)
[2018-01-20] MEDS: CIPROFLOXACIN 500 MG TAB PO SCH (07:55)
--- NOTE | 2018-01-20 10:34 | HHI.FPPN ---
Subjective Remarks Patient was seen and evaluated this morning. He feels well overall. He is sitting in a chair. Patient denies chest pain, heart palpitations, shortness of breath, nausea/vomiting, diarrhea and constipation. All questions were answered. Objective Vitals Vital Signs Date Time Temp Pulse Resp B/P (MAP) Pulse Ox O2 Delivery O2 Flow Rate FiO2 01/20/18 08:00 97.9 85 17 136/75 (95) 97 01/20/18 05:38 97.5 88 18 148/94 (112) 95 01/20/18 00:32 98.3 93 18 137/77 (97) 96 01/19/18 20:26 98.0 95 18 145/93 (110) 96 01/19/18 20:04 97 21 01/19/18 16:00 97.9 91 16 151/88 (109) 97 01/19/18 12:00 98.0 91 16 157/93 (114) 96 I/O 01/19/18 01/19/18 01/19/18 01/20/18 01/20/18 01/20/18 07:00 15:00 23:00 07:00 15:00 23:00 Intake Total 200 ml 480 ml Output Total 475 ml 650 ml 1200 ml 350 ml Balance -275 ml -650 ml -720 ml -350 ml Intake Oral 480 ml IV Total 200 ml Output Urine Total 475 ml 650 ml 1200 ml 350 ml # Voids 1 1 # Bowel Movements 1 Result Diagram: 01/19/18 1625 01/20/18 0145 Other Results Pathology Results: #1- TOE, RIGHT FIFTH, AMPUTATION: * ULCERATION, GANGRENOUS NECROSIS AND ACUTE OSTEOMYELITIS. * THE PROCESS EXTENDS FOCALLY TO THE SOFT TISSUE MARGIN OF RESECTION. #2- BONE, CLEAN MARGIN RIGHT FOOT, FIFTH DIGIT, BIOPSY: * TRABECULAR BONE, NEGATIVE OF OSTEOMYELITIS. Objective Remarks GENERAL: Well-developed, well-nourished patient. No acute distress. Sitting up in chair comfortably. SKIN: Warm and dry. HEAD: Atraumatic. Normocephalic. EYES: Pupils equal and round. No scleral icterus. No injection or drainage. ENT: No nasal bleeding or discharge. Mucous membranes pink and moist. NECK: Trachea midline. No JVD. CARDIOVASCULAR: Regular rate and rhythm. RESPIRATORY: No accessory muscle use. Good air movement bilaterally but with crackles in bilateral lung bases. GASTROINTESTINAL: Abdomen soft, non-tender, nondistended. Hepatic and splenic margins not palpable. MUSCULOSKELETAL: Both right and left foot wrapped in gauze that is clean, dry and intact. No noticeable swelling/erythema outside of the dressing. Sensation intact in toes with appropriate capillary refill, movement of toes intact. NEUROLOGICAL: Awake and alert. No obvious cranial nerve deficits. Motor grossly within normal limits. Five out of 5 muscle strength in the arms and legs. Normal speech. PSYCHIATRIC: Appropriate mood and affect; insight and judgment normal. Medications and IVs Current Medications Medications (Trade) Dose Ordered Sig/Nahomi Route Start Time Stop Time Status Last Admin (NS Flush) 2 ml UNSCH PRN IV FLUSH 01/14/18 14:00 (NS Flush) 2 ml BID IV FLUSH 01/14/18 21:00 01/20/18 07:53 (Tylenol) 650 mg Q4H PRN PO 01/14/18 14:45 (Zofran Inj) 4 mg Q6H PRN IVP 01/14/18 14:45 (Rafaela-Colace) 1 tab BID PO 01/14/18 21:00 01/20/18 07:54 (Milk Of Magnesia Liq) 30 ml Q12H PRN PO 01/14/18 14:45 (Senokot) 17.2 mg Q12H PRN PO 01/14/18 14:45 (Dulcolax Supp) 10 mg DAILY PRN RECTAL 01/14/18 14:45 (Lactulose Liq) 30 ml DAILY PRN PO 01/14/18 14:45 Pharmacy Profile Note 0 ml @ 0 mls/hr UNSCH OTHER 01/14/18 14:45 (D50w (Vial) Inj) 50 ml UNSCH PRN IV PUSH 01/14/18 15:00 (Glucagon Inj) 1 mg UNSCH PRN OTHER 01/14/18 15:00 (NovoLOG SUPPLEMENTAL SCALE) 1 ACHS SLIDING SCALE SQ 01/14/18 17:00 01/20/18 16:56 (Dakin'S 0.25% Soln) 1,000 ml BID TOP 01/14/18 21:00 01/16/18 08:10 (Baciguent Oint) 1 applic DAILY TOPICAL 01/17/18 09:00 ([place] 5-325 Mg) 1 tab Q4H PRN PO 01/16/18 21:15 ([place] 7.5-325 Mg) 1 tab Q4H PRN PO 01/16/18 21:15 01/16/18 21:41 (Dilaudid Pf Inj) 1 mg Q3H PRN IV PUSH 01/16/18 21:15 (Narcan Inj) 0.4 mg UNSCH PRN IV PUSH 01/16/18 21:15 (Prinivil) 10 mg DAILY PO 01/19/18 10:30 01/20/18 07:54 (Cipro) 500 mg Q12HR PO 01/19/18 21:00 01/20/18 07:55 (Lovenox Inj) 40 mg Q24H SQ 01/19/18 17:00 01/20/18 16:55 Vancomycin HCl 1750 mg/Sodium Chloride 517.5 ml @ 250 mls/hr Q18H IV 01/21/18 03:00 Miscellaneous Information SPECIFIC LAB TO BE DRAWN:VANCOMYCIN TROUGH DATE TO... ONCE ONCE .XX 01/23/18 08:45 01/23/18 08:46 Urinary Catheter: No Vascular Central Line Catheter: No A/P Assessment and Plan 67-year-old male with history significant for diabetes that is not currently being controlled. Admitted for right foot osteomyelitis. Patient met sepsis criteria on admission. Started on Vanc, Cefepime, Flagyl since admission. S/P R foot I&D, debridement and partial amputation of 5th metatarsal as well as left foot wound debridement on 01/16. Cultures negative. Pathology shows clear margins. Discharge Planning Discharge delayed due to right foot abscess involving the surgical site. Patient will undergo repeat I&D on . PT recommending inpatient rehab. Problem List: (1) Osteomyelitis ICD Codes: M86.9 - Osteomyelitis, unspecified Status: Chronic Plan: Found to have osteomyelitis on right foot involving fifth proximal phalanx in the distal aspect of the metatarsal of the fifth metatarsal head. Podiatry consulted: * R foot I&D, debridement and partial amputation of 5th metatarsal as well as L foot wound debridement on 01/16. * Heal weightbearing with walker. * PT recommending inpatient rehab after DC. * Cultures negative. * Pathology shows clear margins. * Right foot abscess involving surgical site as of 01/20. Plan to repeat I&D on . Recommend continuation of antibiotics, preferably IV. Imaging: * Right Foot MRI: Osteomyelitis at the fifth proximal phalanx and at the distal aspect of the metatarsal of the fifth metatarsal head region. * Right Foot XR: Diffuse soft tissue swelling with some air in the soft tissues suggesting infection and possible gangrene. * Left Foot MRI: Abnormal signal in the tibial sesamoid at the first metatarsal head region concern for possible inflammatory change in osteomyelitis. There are prominent thickening of the distal Achilles tendon consistent with very prominent tendinosis/tendinopathy. * Left Foot XR: Small cutaneous ulcer along the ball of foot. No bony destruction. Medications: * Cefepime (01/14-01/19; 01/20- ) * Vancomycin (01/14- ) * Metronidazole (01/14-01/19; 01/20- ) * Cipro (01/19-01/20) * [place] pain scale (2) Sepsis ICD Codes: A41.9 - Sepsis, unspecified organism Status: Resolved Plan: Met Sepsis criteria on admission with tachycardia and leukocytosis. Likely source is right foot wound. Blood cultures: no growth to date. * Currently resolved. * See more detailed plan above. (3) Diabetes ICD Codes: E11.9 - Type 2 diabetes mellitus without complications Status: Chronic Plan: Patient with known history of DM, was treated with Metformin 4 years ago but hasn't been on medication for past 2-3 years. Random glucose of 243 on admission. Low dose sliding scale. A1C elevated at 10.3. Currently well-controlled on sliding scale. (4) GABRIEL (acute kidney injury) ICD Codes: N17.9 - Acute kidney failure, unspecified Status: Resolved Plan: Creatinine elevated to 1.45 on admission. No known baseline. Has been stable - currently 1.25. Held fluids on 01/15 due to crackles on exam. Resumed IVF on 01/17 as patient was NPO - stopped IVF on 01/17. Trending BMP. (5) Left foot wound Status: Chronic Plan: Wound on plantar surface of left foot. Wound was debrided by Podiatry on 01/16 - will follow recs for wound care. (6) FEN Status: Acute Plan: F: DC'ing IVF on 01/17. E: Will replete as needed. N: Diabetic diet. DVT: Lovenox 40mg and SCDs. GI PPX: Not indicated. Gracy Nice MD R1 Jan 20, 2018 10:34
--- NOTE | 2018-01-20 13:51 | HHI.IDPN ---
Subjective Subjective Remarks ID X Cover for Dr. Swan Patient seen and examined with Dr. Alexandra Patient is a 67-year-old male, presented to the hospital complaining of redness and swelling on his right foot. He apparently has had an ulcer on the lateral aspect of his right foot for the last 5 months. He has not really been taking care of it, and it had gotten worse. Over the last several weeks he has noted redness and swelling, and also noted some drainage. It was noted that it was bloody. There was no mention of any foul-smelling discharge. He has had some subjective fevers over the last 4-5 days, but has not taken his temperature because he has no thermometer. There's been no respiratory complaint GI or any urinary complaint. Patient apparently has been diagnosed to have diabetes, and was supposed to be on Glucophage, but he has not taken any diabetic medication over the last 2-3 years. He lives alone. He was admitted and his imaging study showed evidence of osteomyelitis in the fifth toe on the right as well as in the distal aspect of his fifth metatarsal. He underwent surgery, and had abscess as well as ray resection on the fifth metatarsal. Cultures are pending. The pathology report of the margin is pending. Patient has been afebrile. Infectious disease consultation has been requested to evaluate the patient and assist with management and treatment. Notes reviewed Patient has been afebrile No fever or chills No pain No rash No diarrhea OR C/S negative (was on Abx prior to surgery) Gram stain with GPR Path pending Antibiotics Vanco Cipro po Cefepime D/C'd 4/2 Flagyl D/C'd 4/2 Current Medications Medications (Trade) Dose Ordered Sig/Nahomi Route Start Time Stop Time Status Last Admin (NS Flush) 2 ml UNSCH PRN IV FLUSH 01/14/18 14:00 (NS Flush) 2 ml BID IV FLUSH 01/14/18 21:00 01/19/18 09:16 (Tylenol) 650 mg Q4H PRN PO 01/14/18 14:45 (Zofran Inj) 4 mg Q6H PRN IVP 01/14/18 14:45 (Rafaela-Colace) 1 tab BID PO 01/14/18 21:00 01/19/18 09:16 (Milk Of Magnesia Liq) 30 ml Q12H PRN PO 01/14/18 14:45 (Senokot) 17.2 mg Q12H PRN PO 01/14/18 14:45 (Dulcolax Supp) 10 mg DAILY PRN RECTAL 01/14/18 14:45 (Lactulose Liq) 30 ml DAILY PRN PO 01/14/18 14:45 Cefepime HCl 1000 mg/Sodium Chloride 100 ml @ 200 mls/hr Q8H IV 01/14/18 18:00 01/19/18 09:07 Pharmacy Profile Note 0 ml @ 0 mls/hr UNSCH OTHER 01/14/18 14:45 (D50w (Vial) Inj) 50 ml UNSCH PRN IV PUSH 01/14/18 15:00 (Glucagon Inj) 1 mg UNSCH PRN OTHER 01/14/18 15:00 (NovoLOG SUPPLEMENTAL SCALE) 1 ACHS SLIDING SCALE SQ 01/14/18 17:00 01/19/18 12:07 Metronidazole 100 ml @ 100 mls/hr Q8H IV 01/15/18 00:00 01/19/18 09:12 (Dakin'S 0.25% Soln) 1,000 ml BID TOP 01/14/18 21:00 01/16/18 08:10 Vancomycin HCl 2000 mg/Sodium Chloride 520 ml @ 250 mls/hr Q18H IV 01/15/18 14:00 01/19/18 10:11 Lactated Ringer's 1,000 ml @ 30 mls/hr Q24H PRN IV 01/16/18 16:30 01/19/18 16:29 Sodium Chloride 500 ml @ 30 mls/hr [id number] PRN IV 01/16/18 16:30 01/19/18 16:29 (Lopressor) 25 mg [employer]INEER PRN PO 01/16/18 16:30 01/19/18 16:29 (Betadine 5% Antisepsis Kit) 1 applic [employer]INEER PRN EACH NARE 01/16/18 16:30 01/19/18 16:29 (Chlorhexidine 2% Cloth) 3 pack [employer]ER PRN TOPICAL 01/16/18 16:30 01/19/18 16:29 (Baciguent Oint) 1 applic DAILY TOPICAL 01/17/18 09:00 ([place] 5-325 Mg) 1 tab Q4H PRN PO 01/16/18 21:15 ([place] 7.5-325 Mg) 1 tab Q4H PRN PO 01/16/18 21:15 01/16/18 21:41 (Dilaudid Pf Inj) 1 mg Q3H PRN IV PUSH 01/16/18 21:15 (Narcan Inj) 0.4 mg UNSCH PRN IV PUSH 01/16/18 21:15 Miscellaneous Information SPECIFIC LAB TO BE DRAWN:VANCO TROUGH DATE... ONCE ONCE .XX 01/20/18 01:45 01/20/18 01:46 (Prinivil) 10 mg DAILY PO 01/19/18 10:30 01/19/18 11:50 Lines Line with no evidence of infection Past Medical History Diabetes, not on treatment Past Surgical History Fracture femur, ankle, from an accident (Elen Walker) Allergies: Coded Allergies: No Known Allergies (Unverified , 01/14/18) Objective . Vital Signs Date Time Temp Pulse Resp B/P (MAP) Pulse Ox O2 Delivery O2 Flow Rate FiO2 01/20/18 13:36 97 01/20/18 12:00 97.6 88 17 154/96 (115) 97 01/20/18 08:00 97.9 85 17 136/75 (95) 97 01/20/18 05:38 97.5 88 18 148/94 (112) 95 01/20/18 00:32 98.3 93 18 137/77 (97) 96 01/19/18 20:26 98.0 95 18 145/93 (110) 96 01/19/18 20:04 97 21 01/19/18 16:00 97.9 91 16 151/88 (109) 97 01/20/18 01/20/18 01/21/18 15:00 23:00 07:00 Output Total 350 ml Balance -350 ml Output Urine Total 350 ml . Laboratory Tests Test 01/19/18 16:25 White Blood Count 8.1 TH/MM3 Red Blood Count 4.38 MIL/MM3 Hemoglobin 11.9 GM/DL Hematocrit 36.7 % Mean Corpuscular Volume 83.7 FL Mean Corpuscular Hemoglobin 27.1 PG Mean Corpuscular Hemoglobin Concent 32.4 % Red Cell Distribution Width 16.7 % Platelet Count 301 TH/MM3 Mean Platelet Volume 8.3 FL Neutrophils (%) (Auto) 77.0 % Lymphocytes (%) (Auto) 12.1 % Monocytes (%) (Auto) 8.8 % Eosinophils (%) (Auto) 1.6 % Basophils (%) (Auto) 0.5 % Neutrophils # (Auto) 6.3 TH/MM3 Lymphocytes # (Auto) 1.0 TH/MM3 Monocytes # (Auto) 0.7 TH/MM3 Eosinophils # (Auto) 0.1 TH/MM3 Basophils # (Auto) 0.0 TH/MM3 CBC Comment DIFF FINAL Differential Comment Laboratory Tests Test 01/19/18 16:25 01/20/18 01:45 Blood Urea Nitrogen 20 MG/DL Creatinine 1.32 MG/DL 1.25 MG/DL Random Glucose 214 MG/DL Calcium Level 8.1 MG/DL Sodium Level 136 MEQ/L Potassium Level 4.1 MEQ/L Chloride Level 106 MEQ/L Carbon Dioxide Level 22.1 MEQ/L Anion Gap 8 MEQ/L Estimat Glomerular Filtration Rate 54 ML/MIN 58 ML/MIN Imaging Last Impressions Carotid Artery Ultrasound 01/15/18 0000 Signed Impressions: Service Date/Time: December 11:48 - CONCLUSION: 1. Elevated peak systolic velocity of the right internal carotid artery at elevated ICA/ CCA ratio suggesting 50-69%% stenosis of the right ICA. 2. No significant left carotid stenosis. Hesham Wheat MD Foot X-Ray 01/14/18 0000 Signed Impressions: Service Date/Time: Sunday, January 14, 2018 17:43 - CONCLUSION: 1. Small cutaneous ulcer along the ball of foot. 2. Degenerative changes are seen throughout the foot. 3. No bony destruction. Claude Gaviria MD Foot MRI 01/14/18 0000 Signed Impressions: Service Date/Time: Sunday, January 14, 2018 19:52 - CONCLUSION: Osteomyelitis at the fifth proximal phalanx and at the distal aspect of the metatarsal of the fifth metatarsal head region. Eric Resendiz MD Physical Exam GENERAL: WDWN male, sitting up in bedside chair. INAD. Awake and alert. SKIN: Warm and dry. No generalized rash, no ecchymoses and no evidence of embolic lesions. HEAD: Atraumatic. Normocephalic. No temporal wasting, or tenderness. EYES: Phelps conjunctiva. No petechia or hemorrhage. Pupils equal, round and reactive to light. Extraocular movements full and intact. No scleral icterus. No injection or drainage. EARS, NOSE AND THROAT: Nose without bleeding or purulent nasal discharge. No sinus tenderness. Mucous membranes pink and moist. No oral lesions noted. No exudate. No oral thrush. MMM. NECK: Trachea midline. CARDIOVASCULAR: Regular rate and rhythm. No murmurs, rubs or gallops heard RESPIRATORY: Clear to auscultation. Breath sounds equal bilaterally. No rales , wheezing or rhonchi ABDOMEN: Soft, non-tender, nondistended. Bowel sounds present and normoactive. No guarding. No rebound. No organomegaly. EXTREMITIES: No clubbing, cyanosis. No joint effusion, has good ROM. Bilateral feet in dressed, C/D/I. 1+ pitting edema RLE. Trace edema in LLE. Able to wiggle toes of both feet. Decreased sensation to touch distally. NEUROLOGICAL: Awake and alert. Cranial nerves grossly intact. Motor grossly within normal limits. PSYCHIATRIC: Normal affect, calm and cooperative. LINE: No evidence of infection (Elen Walker) Assessment & Plan Remarks IMPRESSION Infection R foot, with osteo of 5th toe and distal 5th MT, S/P ray resection - C/S negative, ?due to prior Abx; G/S with GPR - path report pending DM, not compliant with treatment. Blood sugars overall controlled. Renal insufficiency - kidney function improving RECOMMENDATION Continue vancomycin Cipro for GNR coverage Await path report If path or clean margin shows no osteo, give oral Abx x 10-14 days (Cipro and Clinda) If margin (+) osteo, he will need IV Abx - prob Vanco IV and po Cipro x 6 weeks Follow cultures and path report Monitor progress (Elen Walker) Remarks The exam, history, and the medical decision-making described in the above note were completed with the assistance of the mid-level provider. I reviewed and agree with the findings presented. I attest that I had a [id number] encounter with the patient on the same day, and personally performed and documented my assessment and findings in the medical record. Foot in post op dressing. Path reviewed margins clear. Reviewed this finding with but it appears that patient was weight bearing and the surgical site dehisced and there is purulence noted. will take patient back to OR and recommends IV antibiotics no oral antibiotics post op at this point. Appreciate his input. Continue Cefepime IV Continue Flagyl IV till after surgery. Once surgery completed may switch to oral antibiotics. Discontinue Vanco IV as no MRSA identified. Follow intra op cultures, Intra op note to decide further antibiotic regimen. (Sulma Alexandra MD) Elen Walker Jan 20, 2018 13:51 Sulma Alexandra MD Jan 20, 2018 18:29
[2018-01-20] MEDS: ENOXAPARIN SODIUM 40 MG/0.4 ML SYRINGE SQ SCH (16:55)
--- NOTE | 2018-01-20 17:57 | PD.POD ---
Subjective Pain score: 0 Remarks Has multiple questions and appears to be unable to be heel weight-bear, otherwise no new complaints Past Med/Surg/Social History Social History Smoking Status: Never Smoker Objective Vital Signs Vital Signs Date Time Temp Pulse Resp B/P (MAP) Pulse Ox O2 Delivery O2 Flow Rate FiO2 01/20/18 16:00 97.8 85 17 140/84 (102) 97 01/20/18 13:36 97 01/20/18 12:00 97.6 88 17 154/96 (115) 97 01/20/18 08:00 97.9 85 17 136/75 (95) 97 01/20/18 05:38 97.5 88 18 148/94 (112) 95 01/20/18 00:32 98.3 93 18 137/77 (97) 96 01/19/18 20:26 98.0 95 18 145/93 (110) 96 01/19/18 20:04 97 21 Coded Allergies: No Known Allergies (Unverified , 01/14/18) Medications and IVs Administered Medications Medications (Trade) Dose Ordered Sig/Nahomi Route PRN Reason Start Time Stop Time Status Last Admin Dose Admin Sodium Chloride (NS Flush) 2 ml BID IV FLUSH 01/14/18 21:00 01/20/18 07:53 Senna/Docusate Sodium (Rafaela-Colace) 1 tab BID PO 01/14/18 21:00 01/20/18 07:54 Insulin Aspart (NovoLOG SUPPLEMENTAL SCALE) 1 ACHS SLIDING SCALE SQ 01/14/18 17:00 01/20/18 16:56 Sodium Hypochlorite (Dakin'S 0.25% Soln) 1,000 ml BID TOP 01/14/18 21:00 01/16/18 08:10 Acetaminophen/ Hydrocodone Bitart ([place] 7.5-325 Mg) 1 tab Q4H PRN PO PAIN SCALE 6 TO 10 01/16/18 21:15 01/16/18 21:41 Lisinopril (Prinivil) 10 mg DAILY PO 01/19/18 10:30 01/20/18 07:54 Ciprofloxacin (Cipro) 500 mg Q12HR PO 01/19/18 21:00 01/20/18 07:55 Enoxaparin Sodium (Lovenox Inj) 40 mg Q24H SQ 01/19/18 17:00 01/20/18 16:55 Other Results Laboratory Tests Test 01/19/18 16:25 White Blood Count 8.1 TH/MM3 Red Blood Count 4.38 MIL/MM3 Hemoglobin 11.9 GM/DL Hematocrit 36.7 % Mean Corpuscular Volume 83.7 FL Mean Corpuscular Hemoglobin 27.1 PG Mean Corpuscular Hemoglobin Concent 32.4 % Red Cell Distribution Width 16.7 % Platelet Count 301 TH/MM3 Mean Platelet Volume 8.3 FL Neutrophils (%) (Auto) 77.0 % Lymphocytes (%) (Auto) 12.1 % Monocytes (%) (Auto) 8.8 % Eosinophils (%) (Auto) 1.6 % Basophils (%) (Auto) 0.5 % Neutrophils # (Auto) 6.3 TH/MM3 Lymphocytes # (Auto) 1.0 TH/MM3 Monocytes # (Auto) 0.7 TH/MM3 Eosinophils # (Auto) 0.1 TH/MM3 Basophils # (Auto) 0.0 TH/MM3 CBC Comment DIFF FINAL Differential Comment Laboratory Tests Test 01/19/18 16:25 01/20/18 01:45 Blood Urea Nitrogen 20 MG/DL Creatinine 1.32 MG/DL 1.25 MG/DL Random Glucose 214 MG/DL Calcium Level 8.1 MG/DL Sodium Level 136 MEQ/L Potassium Level 4.1 MEQ/L Chloride Level 106 MEQ/L Carbon Dioxide Level 22.1 MEQ/L Anion Gap 8 MEQ/L Estimat Glomerular Filtration Rate 54 ML/MIN 58 ML/MIN FINAL DIAGNOSIS: #1- TOE, RIGHT FIFTH, AMPUTATION: - ULCERATION, GANGRENOUS NECROSIS AND ACUTE OSTEOMYELITIS. - THE PROCESS EXTENDS FOCALLY TO THE SOFT TISSUE MARGIN OF RESECTION. #2- BONE, CLEAN MARGIN RIGHT FOOT, FIFTH DIGIT, BIOPSY: - TRABECULAR BONE, NEGATIVE OF OSTEOMYELITIS. Physical Exam General appearance: comfortable Details Left foot partial-thickness ulcer under 1 cm no drainage no redness minimal dermis noted no exposed bone joint or tendon no obvious signs of infection. Decreased sensation for his warm pulses diminished. Right foot absent fifth digit and fifth ray sulcus incision partially dehisced approximately 20% of incision open, early necrotic, purulent drainage with redness extending to the medial first MPJ mild odor noted no soft tissue emphysema the foot remains warm sensation decreased to light touch the patient appears to have pulses however diminished dorsalis pedis posterior tibialis. Good muscle strength noted with moderate edema bilateral calf is nonpainful. Assessment & Plan A/P Left foot ulcer, improving Right foot abscess infection, surgery site in the sulcus appears to be infected with loosening sutures possible due to noncompliance with heel weight-bear. S/P per Dr Eid 01/16 1. Left foot wound debridement. 2. Right foot incision and drainage 3. Right foot extensive wound debridement. 4. Right foot partial fifth ray amputation. 5. Right foot wound closure using a rotational flap Patient appears to be struggling the heal, right foot, repeat incision and drainage debridement right foot planned for continue antibiotics preferably IV significant redness and swelling still remains. Recommend the patient go to nonweightbearing of the right lower extremity, PT ordered. Also recommend rehab placement upon discharge. Brandon Mcclendon DPM Jan 20, 2018 17:57
[2018-01-20] MEDS: metroNIDAZOLE 500 MG INJ 100 ML IV SCH (20:30)
[2018-01-20] MEDS: CEFEPIME INJ 1,000 MG in SODIUM CHLORIDE 0.9% INJ 100 ML IV SCH (20:30)
[2018-01-21] VITALS: BP 104/51; PULSE 89; RESP 18; TEMP 98; O2SAT 100
[2018-01-21] MEDS ORDERED: VANCOMYCIN INJ 1,750 MG in SODIUM CHLORID 0.9% 500 ML INJ 500 ML IV SCH (03:00)
[2018-01-21 04:00] VITALS: BP 140/81; PULSE 65; RESP 18; TEMP 98.1; O2SAT 95
[2018-01-21] MEDS: CEFEPIME INJ 1,000 MG in SODIUM CHLORIDE 0.9% INJ 100 ML IV SCH ×3 (04:53→19:44)
[2018-01-21] MEDS: metroNIDAZOLE 500 MG INJ 100 ML IV SCH ×3 (04:53→19:44)
[2018-01-21 07:23] LABS: AUTOMATED NEUTROPHIL # 4.5 TH/MM3 (1.8-7.7); BASOPHIL # 0.1 TH/MM3 (0-0.2); BASOPHIL % 0.9 % (0.0-2.0); EOSINOPHIL # 0.1 TH/MM3 (0-0.4); EOSINOPHIL % 2.3 % (0.0-4.0); HEMATOCRIT 35.3 % (39.0-51.0); HEMOGLOBIN 11.7 GM/DL (13.0-17.0); LYMPH % 16.7 % (9.0-44.0); LYMPHOCYTE # 1.1 TH/MM3 (1.0-4.8); MEAN CELL VOLUME 82.3 FL (80.0-100.0); MEAN CORPUSCULAR HEMOGLOBIN 27.3 PG (27.0-34.0); MEAN CORPUSCULAR HGB CONC 33.2 % (32.0-36.0); MEAN PLATELET VOLUME 7.8 FL (7.0-11.0); MONO % 9.3 % (0.0-8.0); MONOCYTE # 0.6 TH/MM3 (0-0.9); NEUT % 70.8 % (16.0-70.0); PLATELET COUNT 325 TH/MM3 (150-450); RED BLOOD COUNT 4.29 MIL/MM3 (4.50-5.90); RED CELL DISTRIBUTION WIDTH 16.8 % (11.6-17.2); WHITE BLOOD COUNT 6.3 TH/MM3 (4.0-11.0)
[2018-01-21 07:55] LABS: BICARBONATE 24.3 MEQ/L (21.0-32.0); CALCIUM 8.3 MG/DL (8.5-10.1); CREATININE 1.3 MG/DL (0.60-1.30)
[2018-01-21] MEDS: INSULIN ASPART SUPPLEMENTAL SCALE SQ SCH ×4 (08:08→20:29)
[2018-01-21] MEDS: SODIUM CHLORIDE 0.9% FLUSH 10 ML FLUSH IV FLUSH SCH ×2 (08:09→19:44)
[2018-01-21] MEDS: DOCUSATE SODIUM 50 MG/SENNA 8.6 MG TAB PO SCH ×2 (08:09→19:44)
[2018-01-21] MEDS: LISINOPRIL 10 MG TAB PO SCH (08:09)
[2018-01-21 08:18] VITALS: BP 138/77; PULSE 88; RESP 18; TEMP 97.8; O2SAT 94
[2018-01-21] MEDS: SODIUM HYPOCHLORITE 0.25% 500 ML BTL TOP SCH ×2 (09:00→19:57)
--- NOTE | 2018-01-21 09:27 | HHI.FPPN ---
Subjective Remarks Patient seen and examined bedside this morning. He continues to state his pain is only 1 out of 10 on his feet. He has a little numbness and tingling but otherwise feels normal. Denies any chest pain/shortness breath/dizziness. Objective Vitals Vital Signs Date Time Temp Pulse Resp B/P (MAP) Pulse Ox O2 Delivery O2 Flow Rate FiO2 01/21/18 08:18 97.8 88 18 138/77 (97) 94 01/21/18 04:00 98.1 65 18 140/81 (100) 95 01/21/18 00:00 98.0 89 18 104/51 (68) 100 01/20/18 20:00 98.1 88 18 134/74 (94) 96 01/20/18 16:00 97.8 85 17 140/84 (102) 97 01/20/18 13:36 97 01/20/18 12:00 97.6 88 17 154/96 (115) 97 I/O 01/20/18 01/20/18 01/20/18 01/21/18 01/21/18 01/21/18 07:00 15:00 23:00 07:00 15:00 23:00 Intake Total 480 ml Output Total 1200 ml 350 ml 600 ml Balance -720 ml -350 ml -600 ml Intake Oral 480 ml Output Urine Total 1200 ml 350 ml 600 ml # Voids 1 3 # Bowel Movements 1 Result Diagram: 01/21/1837 01/21/18 06 Objective Remarks GENERAL: Well-developed, well-nourished patient. No acute distress. Sitting up in chair comfortably. SKIN: Warm and dry. HEAD: Atraumatic. Normocephalic. EYES: Pupils equal and round. No scleral icterus. No injection or drainage. ENT: No nasal bleeding or discharge. Mucous membranes pink and moist. NECK: Trachea midline. No JVD. CARDIOVASCULAR: Regular rate and rhythm. RESPIRATORY: No accessory muscle use. Good air movement bilaterally but with crackles in bilateral lung bases. GASTROINTESTINAL: Abdomen soft, non-tender, nondistended. Hepatic and splenic margins not palpable. MUSCULOSKELETAL: Both right and left foot wrapped in gauze that is clean, dry and intact. No noticeable swelling/erythema outside of the dressing. Sensation intact in toes with appropriate capillary refill, movement of toes intact. NEUROLOGICAL: Awake and alert. No obvious cranial nerve deficits. Motor grossly within normal limits. Five out of 5 muscle strength in the arms and legs. Normal speech. PSYCHIATRIC: Appropriate mood and affect; insight and judgment normal. A/P Assessment and Plan 67-year-old male with history significant for diabetes that is not currently being controlled. Admitted for right foot osteomyelitis. Patient met sepsis criteria on admission. Started on Vanc, Cefepime, Flagyl since admission. S/P R foot I&D, debridement and partial amputation of 5th metatarsal as well as left foot wound debridement on 01/16. Drainage and debridement of right foot planned for Discharge Planning Discharge delayed due to right foot abscess involving the surgical site. Patient will undergo repeat I&D on . PT recommending inpatient rehab. Problem List: (1) Osteomyelitis ICD Codes: M86.9 - Osteomyelitis, unspecified Status: Chronic Plan: Found to have osteomyelitis on right foot involving fifth proximal phalanx in the distal aspect of the metatarsal of the fifth metatarsal head. Podiatry consulted: * R foot I&D, debridement and partial amputation of 5th metatarsal as well as L foot wound debridement on 01/16. * Heal weightbearing with walker. * PT recommending inpatient rehab after DC. * Cultures negative. * Pathology shows clear margins. * Right foot abscess involving surgical site as of 01/20. Plan to repeat I&D on . Recommend continuation of antibiotics, preferably IV. Imaging: * Right Foot MRI: Osteomyelitis at the fifth proximal phalanx and at the distal aspect of the metatarsal of the fifth metatarsal head region. * Right Foot XR: Diffuse soft tissue swelling with some air in the soft tissues suggesting infection and possible gangrene. * Left Foot MRI: Abnormal signal in the tibial sesamoid at the first metatarsal head region concern for possible inflammatory change in osteomyelitis. There are prominent thickening of the distal Achilles tendon consistent with very prominent tendinosis/tendinopathy. * Left Foot XR: Small cutaneous ulcer along the ball of foot. No bony destruction. Medications: * Cefepime (01/14-01/19; 01/20- ) * Vancomycin (01/14- ) * Metronidazole (01/14-01/19; 01/20- ) * Cipro (01/19-01/20) * [place] pain scale (2) Sepsis ICD Codes: A41.9 - Sepsis, unspecified organism Status: Resolved Plan: Met Sepsis criteria on admission with tachycardia and leukocytosis. Likely source is right foot wound. Blood cultures: no growth to date. * Currently resolved. * See more detailed plan above. (3) Diabetes ICD Codes: E11.9 - Type 2 diabetes mellitus without complications Status: Chronic Plan: Patient with known history of DM, was treated with Metformin 4 years ago but hasn't been on medication for past 2-3 years. Random glucose of 243 on admission. Low dose sliding scale. A1C elevated at 10.3. Currently well-controlled on sliding scale. (4) GABRIEL (acute kidney injury) ICD Codes: N17.9 - Acute kidney failure, unspecified Status: Resolved Plan: Creatinine elevated to 1.45 on admission. No known baseline. Has been stable - currently 1. 30. . Trending BMP. (5) Left foot wound Status: Chronic Plan: Wound on plantar surface of left foot. Wound was debrided by Podiatry on 01/16 - will follow recs for wound care. (6) FEN Status: Acute Plan: F: By mouth fluids until nothing by mouth at midnight E: Will replete as needed. N: Diabetic diet. DVT: Lovenox 40mg and SCDs. GI PPX: Not indicated. Faiza Portillo MD R2 Jan 21, 2018 09:27
--- NOTE | 2018-01-21 12:06 | HHI.IDPN ---
Subjective Subjective Remarks Patient seen and examined with Dr. Ibrahima Rao for Dr. Swan Patient is a 67-year-old male, presented to the hospital complaining of redness and swelling on his right foot. He apparently has had an ulcer on the lateral aspect of his right foot for the last 5 months. He has not really been taking care of it, and it had gotten worse. Over the last several weeks he has noted redness and swelling, and also noted some drainage. It was noted that it was bloody. There was no mention of any foul-smelling discharge. He has had some subjective fevers over the last 4-5 days, but has not taken his temperature because he has no thermometer. There's been no respiratory complaint GI or any urinary complaint. Patient apparently has been diagnosed to have diabetes, and was supposed to be on Glucophage, but he has not taken any diabetic medication over the last 2-3 years. He lives alone. He was admitted and his imaging study showed evidence of osteomyelitis in the fifth toe on the right as well as in the distal aspect of his fifth metatarsal. He underwent surgery, and had abscess as well as ray resection on the fifth metatarsal. Infectious disease consultation has been requested to evaluate the patient and assist with management and treatment. Notes reviewed afebrile No fever or chills No pain No rash No diarrhea OR C/S negative (was on Abx prior to surgery) Gram stain with GPR Path clean margin right foot, fifth digit, no osteo Antibiotics Vanco Cipro po Cefepime D/C'd 4/2 Flagyl D/C'd 4/2 Current Medications Medications (Trade) Dose Ordered Sig/Nahomi Route Start Time Stop Time Status Last Admin (NS Flush) 2 ml UNSCH PRN IV FLUSH 01/14/18 14:00 (NS Flush) 2 ml BID IV FLUSH 01/14/18 21:00 01/19/18 09:16 (Tylenol) 650 mg Q4H PRN PO 01/14/18 14:45 (Zofran Inj) 4 mg Q6H PRN IVP 01/14/18 14:45 (Rafaela-Colace) 1 tab BID PO 01/14/18 21:00 01/19/18 09:16 (Milk Of Magnesia Liq) 30 ml Q12H PRN PO 01/14/18 14:45 (Senokot) 17.2 mg Q12H PRN PO 01/14/18 14:45 (Dulcolax Supp) 10 mg DAILY PRN RECTAL 01/14/18 14:45 (Lactulose Liq) 30 ml DAILY PRN PO 01/14/18 14:45 Cefepime HCl 1000 mg/Sodium Chloride 100 ml @ 200 mls/hr Q8H IV 01/14/18 18:00 01/19/18 09:07 Pharmacy Profile Note 0 ml @ 0 mls/hr UNSCH OTHER 01/14/18 14:45 (D50w (Vial) Inj) 50 ml UNSCH PRN IV PUSH 01/14/18 15:00 (Glucagon Inj) 1 mg UNSCH PRN OTHER 01/14/18 15:00 (NovoLOG SUPPLEMENTAL SCALE) 1 ACHS SLIDING SCALE SQ 01/14/18 17:00 01/19/18 12:07 Metronidazole 100 ml @ 100 mls/hr Q8H IV 01/15/18 00:00 01/19/18 09:12 (Dakin'S 0.25% Soln) 1,000 ml BID TOP 01/14/18 21:00 01/16/18 08:10 Vancomycin HCl 2000 mg/Sodium Chloride 520 ml @ 250 mls/hr Q18H IV 01/15/18 14:00 01/19/18 10:11 Lactated Ringer's 1,000 ml @ 30 mls/hr Q24H PRN IV 01/16/18 16:30 01/19/18 16:29 Sodium Chloride 500 ml @ 30 mls/hr [id number] PRN IV 01/16/18 16:30 01/19/18 16:29 (Lopressor) 25 mg COMPANION CAREGIVER PRN PO 01/16/18 16:30 01/19/18 16:29 (Betadine 5% Antisepsis Kit) 1 applic COMPANION CAREGIVER PRN EACH NARE 01/16/18 16:30 01/19/18 16:29 (Chlorhexidine 2% Cloth) 3 pack COMPANION CAREGIVER PRN TOPICAL 01/16/18 16:30 01/19/18 16:29 (Baciguent Oint) 1 applic DAILY TOPICAL 01/17/18 09:00 ([place] 5-325 Mg) 1 tab Q4H PRN PO 01/16/18 21:15 ([place] 7.5-325 Mg) 1 tab Q4H PRN PO 01/16/18 21:15 01/16/18 21:41 (Dilaudid Pf Inj) 1 mg Q3H PRN IV PUSH 01/16/18 21:15 (Narcan Inj) 0.4 mg UNSCH PRN IV PUSH 01/16/18 21:15 Miscellaneous Information SPECIFIC LAB TO BE DRAWN:VANCO TROUGH DATE... ONCE ONCE .XX 01/20/18 01:45 01/20/18 01:46 (Prinivil) 10 mg DAILY PO 01/19/18 10:30 01/19/18 11:50 Lines Line with no evidence of infection Past Medical History Diabetes, not on treatment Past Surgical History Fracture femur, ankle, from an accident (Elen Walker) Allergies: Coded Allergies: No Known Allergies (Unverified , 01/14/18) Objective . Vital Signs Date Time Temp Pulse Resp B/P (MAP) Pulse Ox O2 Delivery O2 Flow Rate FiO2 01/21/18 08:18 97.8 88 18 138/77 (97) 94 01/21/18 04:00 98.1 65 18 140/81 (100) 95 01/21/18 00:00 98.0 89 18 104/51 (68) 100 01/20/18 20:00 98.1 88 18 134/74 (94) 96 01/20/18 16:00 97.8 85 17 140/84 (102) 97 01/20/18 13:36 97 01/20/18 12:00 97.6 88 17 154/96 (115) 97 . Laboratory Tests Test 01/19/18 16:25 01/21/18 06:37 White Blood Count 8.1 TH/MM3 6.3 TH/MM3 Red Blood Count 4.38 MIL/MM3 4.29 MIL/MM3 Hemoglobin 11.9 GM/DL 11.7 GM/DL Hematocrit 36.7 % 35.3 % Mean Corpuscular Volume 83.7 FL 82.3 FL Mean Corpuscular Hemoglobin 27.1 PG 27.3 PG Mean Corpuscular Hemoglobin Concent 32.4 % 33.2 % Red Cell Distribution Width 16.7 % 16.8 % Platelet Count 301 TH/MM3 325 TH/MM3 Mean Platelet Volume 8.3 FL 7.8 FL Neutrophils (%) (Auto) 77.0 % 70.8 % Lymphocytes (%) (Auto) 12.1 % 16.7 % Monocytes (%) (Auto) 8.8 % 9.3 % Eosinophils (%) (Auto) 1.6 % 2.3 % Basophils (%) (Auto) 0.5 % 0.9 % Neutrophils # (Auto) 6.3 TH/MM3 4.5 TH/MM3 Lymphocytes # (Auto) 1.0 TH/MM3 1.1 TH/MM3 Monocytes # (Auto) 0.7 TH/MM3 0.6 TH/MM3 Eosinophils # (Auto) 0.1 TH/MM3 0.1 TH/MM3 Basophils # (Auto) 0.0 TH/MM3 0.1 TH/MM3 CBC Comment DIFF FINAL DIFF FINAL Differential Comment Laboratory Tests Test 01/19/18 16:25 01/20/18 01:45 01/21/18 06:37 Blood Urea Nitrogen 20 MG/DL 15 MG/DL Creatinine 1.32 MG/DL 1.25 MG/DL 1.30 MG/DL Random Glucose 214 MG/DL 147 MG/DL Calcium Level 8.1 MG/DL 8.3 MG/DL Sodium Level 136 MEQ/L 138 MEQ/L Potassium Level 4.1 MEQ/L 3.8 MEQ/L Chloride Level 106 MEQ/L 106 MEQ/L Carbon Dioxide Level 22.1 MEQ/L 24.3 MEQ/L Anion Gap 8 MEQ/L 8 MEQ/L Estimat Glomerular Filtration Rate 54 ML/MIN 58 ML/MIN 55 ML/MIN Imaging Last Impressions Carotid Artery Ultrasound 01/15/18 0000 Signed Impressions: Service Date/Time: December 11:48 - CONCLUSION: 1. Elevated peak systolic velocity of the right internal carotid artery at elevated ICA/ CCA ratio suggesting 50-69%% stenosis of the right ICA. 2. No significant left carotid stenosis. Hesham Wheat MD Foot X-Ray 01/14/18 0000 Signed Impressions: Service Date/Time: Sunday, January 14, 2018 17:43 - CONCLUSION: 1. Small cutaneous ulcer along the ball of foot. 2. Degenerative changes are seen throughout the foot. 3. No bony destruction. Claude Gaviria MD Foot MRI 01/14/18 0000 Signed Impressions: Service Date/Time: Sunday, January 14, 2018 19:52 - CONCLUSION: Osteomyelitis at the fifth proximal phalanx and at the distal aspect of the metatarsal of the fifth metatarsal head region. Eric Resendiz MD Physical Exam GENERAL: WDWN male, sitting up in bedside chair asleep but easily awakens to voice. I[place]. SKIN: Warm and dry. No generalized rash, no ecchymoses and no evidence of embolic lesions. HEAD: Atraumatic. Normocephalic. No temporal wasting, or tenderness. EYES: [place] conjunctiva. No petechia or hemorrhage. Pupils equal, round and reactive to light. Extraocular movements full and intact. No scleral icterus. No injection or drainage. EARS, NOSE AND THROAT: Nose without bleeding or purulent nasal discharge. No sinus tenderness. Mucous membranes pink and moist. No oral lesions noted. No exudate. No oral thrush. MMM. NECK: Trachea midline. CARDIOVASCULAR: Regular rate and rhythm. No murmurs, rubs or gallops heard RESPIRATORY: Clear to auscultation. Breath sounds equal bilaterally. No rales , wheezing or rhonchi ABDOMEN: Soft, non-tender, nondistended. Bowel sounds present and normoactive. No guarding. No rebound. No organomegaly. EXTREMITIES: No clubbing, cyanosis. No joint effusion, has good ROM. Bilateral feet in dressed, C/D/I. 1+ pitting edema RLE. Trace edema in LLE. Able to wiggle toes of both feet. Decreased sensation to touch distally. NEUROLOGICAL: Awake and alert. Cranial nerves grossly intact. Motor grossly within normal limits. PSYCHIATRIC: Normal affect, calm and cooperative. LINE: No evidence of infection (Elen Walker) Assessment & Plan Remarks IMPRESSION Infection R foot, with osteo of 5th toe and distal 5th MT, S/P ray resection Surgical site wound dehiscence with purulence, patient weightbearing against instructions not to - C/S negative, ?due to prior Abx; G/S with GPR - path report reviewed, margins clear DM, not compliant with treatment. Blood sugars overall controlled. Renal insufficiency - kidney function improving RECOMMENDATION Discontinue IV vancomycin, no MRSA identified Continue IV cefepime Continue IV Flagyl until after surgery, once surgery completed may switch to oral antibiotics. Reviewed with Dr. Mcclendon, per his report, patient was apparently weightbearing in the surgical site dehisced with purulence noted. Dr. Mcclendon plans to take patient back to the OR tomorrow and recommends IV antibiotics, no oral antibiotics postop at this point. Appreciate his input. If path or clean margin shows no osteo, give oral Abx x 10-14 days (Cipro and Clinda) We will follow-up on intraop cultures and path report, Intra-Op note to decide further antibiotic regimen Monitor progress (Elen Walker) Remarks The exam, history, and the medical decision-making described in the above note were completed with the assistance of the mid-level provider. I reviewed and agree with the findings presented. I attest that I had a [id number] encounter with the patient on the same day, and personally performed and documented my assessment and findings in the medical record. Continue IV cefepime Continue IV Flagyl until after surgery, once surgery completed may switch to oral antibiotics. Reviewed with Dr. Mcclendon, per his report, patient was apparently weightbearing in the surgical site dehisced with purulence noted. Dr. Mcclendon plans to take patient back to the OR tomorrow and recommends IV antibiotics, no oral antibiotics postop at this point. Appreciate his input. anticipate DC to rehab for IV antibiotics and wound care possibly wound vac. (Sulma Alexandra MD) Elen Walker Jan 21, 2018 12:06 Sulma Alexandra MD Jan 21, 2018 17:44
[2018-01-21 12:31] VITALS: BP 143/83; PULSE 91; RESP 18; TEMP 98; O2SAT 95
[2018-01-21] MEDS: ENOXAPARIN SODIUM 40 MG/0.4 ML SYRINGE SQ SCH (16:17)
[2018-01-21] MEDS: BACITRACIN TOP OINT 15 GM TUBE TOPICAL SCH (16:21)
[2018-01-21 16:25] VITALS: BP 156/93; PULSE 93; RESP 18; TEMP 98; O2SAT 98
[2018-01-21 20:00] VITALS: BP 142/75; PULSE 97; RESP 20; TEMP 97.5; O2SAT 95
[2018-01-22] VITALS: BP_SYST 133; BP_SYST 149; BP_DIAS 70; BP_DIAS 84; PULSE 70; PULSE 84; RESP 17; RESP 18; TEMP 97; TEMP 97.5; O2SAT 100; O2SAT 96
[2018-01-22 04:00] VITALS: BP 173/96; PULSE 91; RESP 18; TEMP 97.3; O2SAT 95
[2018-01-22] MEDS: metroNIDAZOLE 500 MG INJ 100 ML IV SCH ×3 (05:18→21:30)
[2018-01-22] MEDS: CEFEPIME INJ 1,000 MG in SODIUM CHLORIDE 0.9% INJ 100 ML IV SCH ×3 (05:18→21:30)
[2018-01-22 07:17] LABS: AUTOMATED NEUTROPHIL # 4.8 TH/MM3 (1.8-7.7); BASOPHIL # 0.1 TH/MM3 (0-0.2); BASOPHIL % 0.9 % (0.0-2.0); EOSINOPHIL # 0.1 TH/MM3 (0-0.4); EOSINOPHIL % 2.1 % (0.0-4.0); HEMATOCRIT 35.8 % (39.0-51.0); HEMOGLOBIN 11.8 GM/DL (13.0-17.0); LYMPH % 15.9 % (9.0-44.0); LYMPHOCYTE # 1.1 TH/MM3 (1.0-4.8); MEAN CELL VOLUME 82.5 FL (80.0-100.0); MEAN CORPUSCULAR HEMOGLOBIN 27.2 PG (27.0-34.0); MEAN CORPUSCULAR HGB CONC 32.9 % (32.0-36.0); MEAN PLATELET VOLUME 7.9 FL (7.0-11.0); MONO % 9.7 % (0.0-8.0); MONOCYTE # 0.7 TH/MM3 (0-0.9); NEUT % 71.4 % (16.0-70.0); PLATELET COUNT 319 TH/MM3 (150-450); RED BLOOD COUNT 4.34 MIL/MM3 (4.50-5.90); RED CELL DISTRIBUTION WIDTH 16.4 % (11.6-17.2); WHITE BLOOD COUNT 6.7 TH/MM3 (4.0-11.0)
[2018-01-22 08:00] VITALS: BP 141/88; PULSE 86; RESP 16; TEMP 98; O2SAT 98
[2018-01-22] MEDS: INSULIN ASPART SUPPLEMENTAL SCALE SQ SCH ×4 (08:00→21:39)
[2018-01-22 08:12] LABS: BICARBONATE 24.2 MEQ/L (21.0-32.0); CALCIUM 8.2 MG/DL (8.5-10.1); CREATININE 1.38 MG/DL (0.60-1.30)
[2018-01-22] MEDS: SODIUM CHLORIDE 0.9% FLUSH 10 ML FLUSH IV FLUSH SCH ×2 (08:34→21:30)
[2018-01-22] MEDS: SODIUM HYPOCHLORITE 0.25% 500 ML BTL TOP SCH ×2 (08:34→21:33)
[2018-01-22] MEDS: DOCUSATE SODIUM 50 MG/SENNA 8.6 MG TAB PO SCH ×2 (08:34→21:30)
[2018-01-22] MEDS: LISINOPRIL 10 MG TAB PO SCH (08:34)
[2018-01-22] MEDS: BACITRACIN TOP OINT 15 GM TUBE TOPICAL SCH (08:34)
[2018-01-22] MEDS ORDERED: LIDOCAINE HCL 1% PF 5 ML SYRINGE OTHER ONE (12:00)
[2018-01-22] MEDS ORDERED: ceFAZolin INJ 1,000 MG VIAL IV ONE ×2 (12:00→17:02)
[2018-01-22] MEDS ORDERED: PHENYLEPH/NS 1000 MCG/10 ML SYR IV ONE (12:00)
[2018-01-22] MEDS ORDERED: ONDANSETRON HCL 4 MG/2 ML VIAL IV ONE (12:00)
[2018-01-22] MEDS ORDERED: PROPOFOL 200 MG/20 ML AMP IV ONE (12:00)
[2018-01-22] MEDS ORDERED: ROCURONIUM INJ 50 MG/5 ML SYRINGE IV PUSH ONE (12:00)
[2018-01-22] MEDS ORDERED: DEXAMETHASONE SOD PHOS 4 MG/ML VIAL IV ONE (12:00)
[2018-01-22 12:41] VITALS: BP 166/97; PULSE 89; RESP 18; TEMP 97.7; O2SAT 97
[2018-01-22] MEDS ORDERED: METOPROLOL TARTRATE 25 MG TAB PO PRN (14:45)
[2018-01-22] MEDS ORDERED: CHLORHEXIDINE GLUCONATE 2 % 1 PACK (2 CLOTHS) TOPICAL PRN (14:45)
[2018-01-22] MEDS ORDERED: SODIUM CHLORID 0.9% 500 ML IV PRN (14:45)
[2018-01-22] MEDS ORDERED: INSULIN HUMAN REGULAR 1,000 UNITS/10 ML VIAL SQ PRN (14:45)
[2018-01-22] MEDS ORDERED: POVIDONE IODINE 5% (ANTISEPSIS KIT) 4 APPLICATIONS EACH NARE PRN (14:45)
[2018-01-22] MEDS ORDERED: LACTATED RINGER'S 1000 ML IV PRN (14:45)
[2018-01-22] MEDS: ENOXAPARIN SODIUM 40 MG/0.4 ML SYRINGE SQ SCH (17:00)
[2018-01-22] MEDS ORDERED: MIDAZOLAM HCL 2 MG/2 ML VIAL ONE (17:18)
--- NOTE | 2018-01-22 17:43 | HHI.PR ---
Immediate Post Op Note Procedure Date: Jan 22, 2018 Pre Op Diagnosis: Right foot ulcer abscess cellulitis Post Op Diagnosis: Right foot ulcer abscess cellulitis Surgeon: Brandon Cho Concession Worker(s): Scrub Procedure: Right foot incision and drainage debridement with closure of wound Findings: Under mild sedation the patient was brought in the operating room placed on the operative the supine position. Following the induction of general anesthesia the right lower extremity was scrubbed prepped and draped in usual aseptic fashion. The foot was elevated and examined. Purulence serous drainage mixture of dry blood and opening of the plantar sulcus was noted beneath digits 2 3 and 4. Sutures removed. Upon exploring the deep sulcus down to the fat and joint capsule MPJs 234; mixture of fibrous purulent fluid noted. This was debrided utilizing curet and [place] to viable bleeding tissue. Pulse lavage was used also to clean the wound. Sharp excisional debridement took place of the dorsal and plantar edges of the sulcus dehiscence area to viable bleeding tissue. Interrupted nylon suture took place repairing the deficit closing the wound. Packing placed within the wound. A bulky bandage applied with a [place] compressive dressing and a posterior splint. Patient is strict nonweightbearing of the right lower extremity and will likely need transition to a rehabilitation facility to prevent further opening of the right foot wound and complication of the wound healing. Deep culture taken before closing the wound. We'll check anticipate changing bandage and the next 1-2 days. Complications: None Specimen(s) removed: Soft tissue culture right foot Estimated blood loss: Less than 50 ML's Anesthesia: General Drains: None Tourniquet time (min at mmHg) No tourniquet used Patient to: PACU Patient Condition: Good Implant/Devices: SEE IMPLANT LOG (if applicable) Date/Time of Procedure: SEE SURGICAL CARE RECORD Brandon Cho DPM Jan 22, 2018 17:43
[2018-01-22 18:07] VITALS: O2SAT 97
--- NOTE | 2018-01-22 18:10 | HHI.FPPN ---
Subjective Remarks Patient was seen and evaluated this morning. He reports feeling nervous about today's procedure but does not have any questions. Patient denies chest pain, heart palpitations, shortness of breath, nausea/vomiting, diarrhea and constipation. Objective Vitals Vital Signs Date Time Temp Pulse Resp B/P (MAP) Pulse Ox O2 Delivery O2 Flow Rate FiO2 01/22/18 12:41 97.7 89 18 166/97 (120) 97 01/22/18 08:00 98.0 86 16 141/88 (105) 98 01/22/18 04:00 97.3 91 18 173/96 (121) 95 01/22/18 00:00 97.0 84 18 133/84 (100) 96 01/21/18 20:00 97.5 97 20 142/75 (97) 95 I/O 01/21/18 01/21/18 01/21/18 01/22/18 01/22/18 01/22/18 07:00 15:00 23:00 07:00 15:00 23:00 Intake Total 480 ml 600 ml Output Total 600 ml 650 ml 1050 ml 745 ml Balance -600 ml -170 ml -1050 ml -145 ml Intake Oral 480 ml IV Total 600 ml Output Urine Total 600 ml 650 ml 1050 ml 725 ml Estimated Blood Loss 20 ml # Voids 3 3 5 # Bowel Movements 1 Result Diagram: 01/22/1815 01/22/18 0615 Other Results Pathology Results: #1- TOE, RIGHT FIFTH, AMPUTATION: * ULCERATION, GANGRENOUS NECROSIS AND ACUTE OSTEOMYELITIS. * THE PROCESS EXTENDS FOCALLY TO THE SOFT TISSUE MARGIN OF RESECTION. #2- BONE, CLEAN MARGIN RIGHT FOOT, FIFTH DIGIT, BIOPSY: * TRABECULAR BONE, NEGATIVE OF OSTEOMYELITIS. Objective Remarks GENERAL: Well-developed, well-nourished patient. No acute distress. Sitting up on the side of the bed. SKIN: Warm and dry. HEAD: Atraumatic. Normocephalic. EYES: Pupils equal and round. No scleral icterus. No injection or drainage. ENT: No nasal bleeding or discharge. Mucous membranes pink and moist. NECK: Trachea midline. No JVD. CARDIOVASCULAR: Regular rate and rhythm. RESPIRATORY: No accessory muscle use. Good air movement bilaterally but with crackles in bilateral lung bases - improved. GASTROINTESTINAL: Abdomen soft, non-tender, nondistended. Hepatic and splenic margins not palpable. MUSCULOSKELETAL: Both right and left foot wrapped in gauze/bandage that are clean, dry and intact. No noticeable swelling/erythema outside of the dressing. Sensation intact in toes with appropriate capillary refill, movement of toes intact. NEUROLOGICAL: Awake and alert. No obvious cranial nerve deficits. Motor grossly within normal limits. Five out of 5 muscle strength in the arms and legs. Normal speech. PSYCHIATRIC: Appropriate mood and affect; insight and judgment normal. Medications and IVs Current Medications Medications (Trade) Dose Ordered Sig/Nahomi Route Start Time Stop Time Status Last Admin (NS Flush) 2 ml UNSCH PRN IV FLUSH 01/14/18 14:00 01/22/18 14:30 (NS Flush) 2 ml BID IV FLUSH 01/14/18 21:00 01/22/18 08:34 (Tylenol) 650 mg Q4H PRN PO 01/14/18 14:45 (Zofran Inj) 4 mg Q6H PRN IVP 01/14/18 14:45 (Rafaela-Colace) 1 tab BID PO 01/14/18 21:00 01/22/18 08:34 (Milk Of Magnesia Liq) 30 ml Q12H PRN PO 01/14/18 14:45 (Senokot) 17.2 mg Q12H PRN PO 01/14/18 14:45 (Dulcolax Supp) 10 mg DAILY PRN RECTAL 01/14/18 14:45 (Lactulose Liq) 30 ml DAILY PRN PO 01/14/18 14:45 (D50w (Vial) Inj) 50 ml UNSCH PRN IV PUSH 01/14/18 15:00 (Glucagon Inj) 1 mg UNSCH PRN OTHER 01/14/18 15:00 (NovoLOG SUPPLEMENTAL SCALE) 1 ACHS SLIDING SCALE SQ 01/14/18 17:00 01/21/18 20:29 (Dakin'S 0.25% Soln) 1,000 ml BID TOP 01/14/18 21:00 01/20/18 20:31 (Baciguent Oint) 1 applic DAILY TOPICAL 01/17/18 09:00 01/22/18 08:34 ([place] 5-325 Mg) 1 tab Q4H PRN PO 01/16/18 21:15 ([place] 7.5-325 Mg) 1 tab Q4H PRN PO 01/16/18 21:15 01/16/18 21:41 (Dilaudid Pf Inj) 1 mg Q3H PRN IV PUSH 01/16/18 21:15 (Narcan Inj) 0.4 mg UNSCH PRN IV PUSH 01/16/18 21:15 (Prinivil) 10 mg DAILY PO 01/19/18 10:30 01/22/18 08:34 (Cipro) 500 mg Q12HR PO 01/19/18 21:00 Future Hold 01/20/18 07:55 (Lovenox Inj) 40 mg Q24H SQ 01/19/18 17:00 01/21/18 16:17 Cefepime HCl 1000 mg/Sodium Chloride 100 ml @ 200 mls/hr Q8H IV 01/20/18 20:00 01/22/18 05:18 Metronidazole 100 ml @ 100 mls/hr Q8H IV 01/20/18 20:00 01/22/18 12:00 Lactated Ringer's 1,000 ml @ 30 mls/hr Q24H PRN IV 01/22/18 14:45 01/25/18 14:44 01/22/18 14:30 Sodium Chloride 500 ml @ 30 mls/hr [id number] PRN IV 01/22/18 14:45 01/25/18 14:44 (Lopressor) 25 mg SOLAR ENERGY TECHNICIAN PRN PO 01/22/18 14:45 01/25/18 14:44 (Betadine 5% Antisepsis Kit) 1 applic SOLAR ENERGY TECHNICIAN PRN EACH NARE 01/22/18 14:45 01/25/18 14:44 (Chlorhexidine 2% Cloth) 3 pack SOLAR ENERGY TECHNICIAN PRN TOPICAL 01/22/18 14:45 01/25/18 14:44 (NovoLIN R INJ) See Protocol Table ... SOLAR ENERGY TECHNICIAN PRN SQ 01/22/18 14:45 01/25/18 14:44 Urinary Catheter: No Vascular Central Line Catheter: No A/P Assessment and Plan 67-year-old male with history of diabetes. Admitted for right foot osteomyelitis. Patient met sepsis criteria on admission. Started on Vanc, Cefepime, Flagyl since admission. S/P R foot I&D, debridement and partial amputation of 5th metatarsal as well as left foot wound debridement on 01/16. Second drainage and debridement of right foot planned for 01/22. Discharge Planning Discharge delayed due to right foot abscess involving the surgical site. Patient will undergo repeat I&D on 01/22. PT recommending inpatient rehab. Problem List: (1) Osteomyelitis ICD Codes: M86.9 - Osteomyelitis, unspecified Status: Chronic Plan: Found to have osteomyelitis on right foot involving fifth proximal phalanx in the distal aspect of the metatarsal of the fifth metatarsal head. Podiatry consulted: * R foot I&D, debridement and partial amputation of 5th metatarsal as well as L foot wound debridement on 01/16. * Heal weightbearing with walker. * PT recommending inpatient rehab after DC. * Cultures negative. * Pathology shows clear margins. * Right foot abscess involving surgical site as of 01/20. Plan to repeat I&D on 01/22. Recommend continuation of antibiotics, preferably IV. Imaging: * Right Foot MRI: Osteomyelitis at the fifth proximal phalanx and at the distal aspect of the metatarsal of the fifth metatarsal head region. * Right Foot XR: Diffuse soft tissue swelling with some air in the soft tissues suggesting infection and possible gangrene. * Left Foot MRI: Abnormal signal in the tibial sesamoid at the first metatarsal head region concern for possible inflammatory change in osteomyelitis. There are prominent thickening of the distal Achilles tendon consistent with very prominent tendinosis/tendinopathy. * Left Foot XR: Small cutaneous ulcer along the ball of foot. No bony destruction. Medications: * Cefepime (01/14-01/19; 01/20- ) * Vancomycin (01/14- ) * Metronidazole (01/14-01/19; 01/20- ) * Cipro (01/19-01/20) * [place] pain scale (2) Sepsis ICD Codes: A41.9 - Sepsis, unspecified organism Status: Resolved Plan: Met Sepsis criteria on admission with tachycardia and leukocytosis. Likely source is right foot wound. Blood cultures: no growth to date. * Currently resolved. * See more detailed plan above. (3) Diabetes ICD Codes: E11.9 - Type 2 diabetes mellitus without complications Status: Chronic Plan: Patient with known history of DM, was treated with Metformin 4 years ago but hasn't been on medication for past 2-3 years. Random glucose of 243 on admission. Low dose sliding scale. A1C elevated at 10.3. Currently well-controlled on sliding scale. (4) GABRIEL (acute kidney injury) ICD Codes: N17.9 - Acute kidney failure, unspecified Status: Resolved Plan: Creatinine elevated to 1.45 on admission. No known baseline. Has been stable - currently 1.38. . Trending BMP. (5) Left foot wound Status: Chronic Plan: Wound on plantar surface of left foot. Wound was debrided by Podiatry on 01/16 - will follow recs for wound care. (6) FEN Status: Acute Plan: Fluids: * LR 1,000ml at 30mls/hr. Electrolytes: * Monitor and replete as necessary. Nutrition: * NPO. Diabetic diet following procedure. DVT Prophylaxis: * SCDs. * Lovenox to be restarted following procedure. GI Prophylaxis: * Not indicated. Gracy Nice MD R1 Jan 22, 2018 18:10
[2018-01-22] MEDS ORDERED: DO NOT ADM ANY ANTICOAGULANT DRUGS PRN (20:15)
[2018-01-22 20:41] VITALS: BP 159/96; PULSE 91; RESP 18; TEMP 97.6; O2SAT 95
[2018-01-23] VITALS (8 sets, daily range): BP systolic 109–144; BP diastolic 60–90; PULSE 85–96; RESP 18; TEMP 97.5–98.4; O2SAT 93–96
[2018-01-23] MEDS: CEFEPIME INJ 1,000 MG in SODIUM CHLORIDE 0.9% INJ 100 ML IV SCH ×3 (04:45→20:43)
[2018-01-23] MEDS: metroNIDAZOLE 500 MG INJ 100 ML IV SCH ×3 (04:45→20:43)
[2018-01-23 08:43] LABS: AUTOMATED NEUTROPHIL # 5.4 TH/MM3 (1.8-7.7); BASOPHIL # 0.1 TH/MM3 (0-0.2); BASOPHIL % 1.7 % (0.0-2.0); EOSINOPHIL # 0.1 TH/MM3 (0-0.4); EOSINOPHIL % 0.9 % (0.0-4.0); HEMATOCRIT 35.3 % (39.0-51.0); HEMOGLOBIN 11.7 GM/DL (13.0-17.0); LYMPH % 11.8 % (9.0-44.0); LYMPHOCYTE # 0.8 TH/MM3 (1.0-4.8); MEAN CELL VOLUME 82.4 FL (80.0-100.0); MEAN CORPUSCULAR HEMOGLOBIN 27.4 PG (27.0-34.0); MEAN CORPUSCULAR HGB CONC 33.2 % (32.0-36.0); MEAN PLATELET VOLUME 7.7 FL (7.0-11.0); MONO % 6.2 % (0.0-8.0); MONOCYTE # 0.4 TH/MM3 (0-0.9); NEUT % 79.4 % (16.0-70.0); PLATELET COUNT 327 TH/MM3 (150-450); RED BLOOD COUNT 4.28 MIL/MM3 (4.50-5.90); RED CELL DISTRIBUTION WIDTH 16.8 % (11.6-17.2); WHITE BLOOD COUNT 6.8 TH/MM3 (4.0-11.0)
[2018-01-23] MEDS ORDERED: PHARMACY ORDERED LAB ONE (08:45)
[2018-01-23] MEDS: INSULIN ASPART SUPPLEMENTAL SCALE SQ SCH ×4 (08:57→20:54)
[2018-01-23] MEDS: LISINOPRIL 10 MG TAB PO SCH (08:58)
[2018-01-23] MEDS: DOCUSATE SODIUM 50 MG/SENNA 8.6 MG TAB PO SCH ×2 (08:58→20:43)
[2018-01-23] MEDS: SODIUM HYPOCHLORITE 0.25% 500 ML BTL TOP SCH ×2 (08:59→20:55)
[2018-01-23] MEDS: SODIUM CHLORIDE 0.9% FLUSH 10 ML FLUSH IV FLUSH SCH ×2 (08:59→20:44)
[2018-01-23] MEDS: BACITRACIN TOP OINT 15 GM TUBE TOPICAL SCH (09:00)
[2018-01-23 09:28] LABS: ALBUMIN 2.4 GM/DL (3.4-5.0); AST (GOT) 16 U/L (15-37); BICARBONATE 27.2 MEQ/L (21.0-32.0); BLOOD UREA NITROGEN 18 MG/DL (7-18); CALCIUM 8.3 MG/DL (8.5-10.1); CHLORIDE 99 MEQ/L (98-107); CREATININE 1.46 MG/DL (0.60-1.30); GLOMERULAR FILTRATION RATE 48 ML/MIN (>89); GLUCOSE,RANDOM 270 MG/DL (74-106); SODIUM (NA) 135 MEQ/L (136-145)
[2018-01-23 09:29] LABS: ALKALINE PHOSPHATASE 177 U/L (45-117); ALT (GPT) 16 U/L (12-78); TOTAL BILIRUBIN ADULT 0.4 MG/DL (0.2-1.0); TOTAL PROTEIN 7.2 GM/DL (6.4-8.2)
--- NOTE | 2018-01-23 16:04 | HHI.FPPN ---
Subjective Remarks Pt without complaints. He denies any foot pain. He is using the bathroom, and is safely moving about room with walker. He denies chest pain, SOB. Objective Vitals Vital Signs Date Time Temp Pulse Resp B/P (MAP) Pulse Ox O2 Delivery O2 Flow Rate FiO2 01/23/18 13:00 94 01/23/18 12:00 97.6 85 18 121/68 (85) 93 01/23/18 08:00 97.5 89 18 144/90 (108) 93 01/23/18 05:22 97.6 92 18 129/83 (98) 96 01/23/18 00:33 98.0 96 18 138/75 (96) 95 01/22/18 20:41 97.6 91 18 159/96 (117) 95 01/22/18 18:07 97 21 01/22/18 18:00 97.9 89 14 136/83 (100) 95 Nasal Cannula 2 01/22/18 17:45 88 14 124/71 (88) 96 Nasal Cannula 2 01/22/18 17:39 97.9 89 14 121/71 (88) 94 Nasal Cannula 2 I/O 01/22/18 01/22/18 01/22/18 01/23/18 01/23/18 01/23/18 07:00 15:00 23:00 07:00 15:00 23:00 Intake Total 100 ml 100 ml 700 ml 100 ml Output Total 1050 ml 1105 ml Balance 100 ml -950 ml -405 ml 100 ml IV Total 100 ml 100 ml 700 ml 100 ml Output Urine Total 1050 ml 1085 ml Estimated Blood Loss 20 ml # Voids 5 1 # Bowel Movements 1 Result Diagram: 01/23/18 0725 01/23/18 0725 Objective Remarks GENERAL: Well-developed, well-nourished patient. No acute distress. Sitting up on the side of the bed. SKIN: Warm and dry. No rashes. No jaundice. HEAD: Atraumatic. Normocephalic. EYES: Pupils equal and round. No scleral icterus. No injection or drainage. ENT: No nasal bleeding or discharge. Mucous membranes pink and moist. NECK: Trachea midline. No JVD. CARDIOVASCULAR: Regular rate and rhythm. No murmurs. RESPIRATORY: No accessory muscle use. Good air movement bilaterally. CTAB. GASTROINTESTINAL: Abdomen soft, non-tender, nondistended. MUSCULOSKELETAL: Both right and left foot wrapped in gauze/bandage that are clean, dry and intact. No noticeable swelling/erythema outside of the dressing. Good capillary refill bilaterally. Able to wiggle toes. NEUROLOGICAL: Awake and alert. No obvious cranial nerve deficits. Motor grossly within normal limits. Five out of 5 muscle strength in the arms and legs. Normal speech.Sensation to light touch present but diminished in toes on right. PSYCHIATRIC: Appropriate mood and affect; insight and judgment normal. A/P Assessment and Plan 67-year-old male with history of diabetes. Admitted for right foot osteomyelitis. Patient met sepsis criteria on admission. Started on Vanc, Cefepime, Flagyl since admission. S/P R foot I&D, debridement and partial amputation of 5th metatarsal as well as left foot wound debridement on 01/16. Second drainage and debridement of right foot planned for 01/22. Discharge Planning Discharge delayed due to right foot abscess involving the surgical site. Patient will undergo repeat I&D on 01/22. PT recommending inpatient rehab. Problem List: (1) Osteomyelitis ICD Codes: M86.9 - Osteomyelitis, unspecified Status: Chronic Plan: Found to have osteomyelitis on right foot involving fifth proximal phalanx in the distal aspect of the metatarsal of the fifth metatarsal head. Podiatry consulted: * R foot I&D, debridement and partial amputation of 5th metatarsal as well as L foot wound debridement on 01/16. * Repeat I&D right foot 01/22/2018 with repeat deep tissue cultures * PT recs per podiatry. * PT recommending inpatient rehab after DC. * Cultures negative. * Pathology shows clear margins 01/16/2018. Imaging: * Right Foot MRI: Osteomyelitis at the fifth proximal phalanx and at the distal aspect of the metatarsal of the fifth metatarsal head region. * Right Foot XR: Diffuse soft tissue swelling with some air in the soft tissues suggesting infection and possible gangrene. * Left Foot MRI: Abnormal signal in the tibial sesamoid at the first metatarsal head region concern for possible inflammatory change in osteomyelitis. There are prominent thickening of the distal Achilles tendon consistent with very prominent tendinosis/tendinopathy. * Left Foot XR: Small cutaneous ulcer along the ball of foot. No bony destruction. Medications: * Cefepime (01/14-01/19; 01/20- ) * Vancomycin (01/14- ) * Metronidazole (01/14-01/19; 01/20- ) * Cipro (01/19-01/20) * Lamar pain scale (2) Sepsis ICD Codes: A41.9 - Sepsis, unspecified organism Status: Resolved Plan: Met Sepsis criteria on admission with tachycardia and leukocytosis. Likely source is right foot wound. Blood cultures: no growth to date. * Currently resolved. * See more detailed plan above. (3) Diabetes ICD Codes: E11.9 - Type 2 diabetes mellitus without complications Status: Chronic Plan: Patient with known history of DM, was treated with Metformin 4 years ago but hasn't been on medication for past 2-3 years. Random glucose of 243 on admission. Low dose sliding scale. A1C elevated at 10.3. Currently well-controlled on sliding scale. Would benefit from diabetic education prior to discharge. (4) GABRIEL (acute kidney injury) ICD Codes: N17.9 - Acute kidney failure, unspecified Status: Resolved Plan: Creatinine elevated to 1.45 on admission. No known baseline. Has been stable - currently 1.46. . Trending BMP daily. (5) Left foot wound Status: Chronic Plan: Wound on plantar surface of left foot. Wound was debrided by Podiatry on 01/16; will follow recs for wound care. (6) FEN Status: Acute Plan: Fluids: * LR 1,000ml at 30mls/hr. Electrolytes: * Monitor and replete as necessary. Nutrition: * Diabetic diet. DVT Prophylaxis: * SCDs. * Lovenox to be restarted following procedure. GI Prophylaxis: * Not indicated. Problem Qualifiers (1) Diabetes: Teri Asher MD Jan 23, 2018 16:04
--- NOTE | 2018-01-23 17:59 | HHI.IDPN ---
Subjective Subjective Remarks Patient seen and examined with Dr. Ibrahima Rao for Dr. Swan Patient is a 67-year-old male, presented to the hospital complaining of redness and swelling on his right foot. He apparently has had an ulcer on the lateral aspect of his right foot for the last 5 months. He has not really been taking care of it, and it had gotten worse. Over the last several weeks he has noted redness and swelling, and also noted some drainage. It was noted that it was bloody. There was no mention of any foul-smelling discharge. He has had some subjective fevers over the last 4-5 days, but has not taken his temperature because he has no thermometer. There's been no respiratory complaint GI or any urinary complaint. Patient apparently has been diagnosed to have diabetes, and was supposed to be on Glucophage, but he has not taken any diabetic medication over the last 2-3 years. He lives alone. He was admitted and his imaging study showed evidence of osteomyelitis in the fifth toe on the right as well as in the distal aspect of his fifth metatarsal. He underwent surgery, and had abscess as well as ray resection on the fifth metatarsal. Infectious disease consultation has been requested to evaluate the patient and assist with management and treatment. Notes reviewed. Overnight events noted. Patient awake and alert sitting in the chair. States he is now compliant not to bear weight on the right foot. States pain is manageable. No fevers or chills No nausea, vomiting, diarrhea, abdominal cramps No rash 01/22/18 S/P Right foot incision and drainage debridement with closure of wound with Dr. Mcclendon Purulent wound noted as per Dr. Mcclendon. No leukocytosis. WBC 6.8 Antibiotics Cefepime Flagyl Cipro po DC 01/20/18 Vancomycin Current Medications Medications (Trade) Dose Ordered Sig/Nahomi Route Start Time Stop Time Status Last Admin (NS Flush) 2 ml UNSCH PRN IV FLUSH 01/14/18 14:00 (NS Flush) 2 ml BID IV FLUSH 01/14/18 21:00 01/19/18 09:16 (Tylenol) 650 mg Q4H PRN PO 01/14/18 14:45 (Zofran Inj) 4 mg Q6H PRN IVP 01/14/18 14:45 (Rafaela-Colace) 1 tab BID PO 01/14/18 21:00 01/19/18 09:16 (Milk Of Magnesia Liq) 30 ml Q12H PRN PO 01/14/18 14:45 (Senokot) 17.2 mg Q12H PRN PO 01/14/18 14:45 (Dulcolax Supp) 10 mg DAILY PRN RECTAL 01/14/18 14:45 (Lactulose Liq) 30 ml DAILY PRN PO 01/14/18 14:45 Cefepime HCl 1000 mg/Sodium Chloride 100 ml @ 200 mls/hr Q8H IV 01/14/18 18:00 01/19/18 09:07 Pharmacy Profile Note 0 ml @ 0 mls/hr UNSCH OTHER 01/14/18 14:45 (D50w (Vial) Inj) 50 ml UNSCH PRN IV PUSH 01/14/18 15:00 (Glucagon Inj) 1 mg UNSCH PRN OTHER 01/14/18 15:00 (NovoLOG SUPPLEMENTAL SCALE) 1 ACHS SLIDING SCALE SQ 01/14/18 17:00 01/19/18 12:07 Metronidazole 100 ml @ 100 mls/hr Q8H IV 01/15/18 00:00 01/19/18 09:12 (Dakin'S 0.25% Soln) 1,000 ml BID TOP 01/14/18 21:00 01/16/18 08:10 Vancomycin HCl 2000 mg/Sodium Chloride 520 ml @ 250 mls/hr Q18H IV 01/15/18 14:00 01/19/18 10:11 Lactated Ringer's 1,000 ml @ 30 mls/hr Q24H PRN IV 01/16/18 16:30 01/19/18 16:29 Sodium Chloride 500 ml @ 30 mls/hr [id number] PRN IV 01/16/18 16:30 01/19/18 16:29 (Lopressor) 25 mg [employer]ANGLE [employer]LL [employer]PERATOR PRN PO 01/16/18 16:30 01/19/18 16:29 (Betadine 5% Antisepsis Kit) 1 applic MANGLE ROLL OPERATOR PRN EACH NARE 01/16/18 16:30 01/19/18 16:29 (Chlorhexidine 2% Cloth) 3 pack MANGLE [employer]LL O[employer]ATOR PRN TOPICAL 01/16/18 16:30 01/19/18 16:29 (Baciguent Oint) 1 applic DAILY TOPICAL 01/17/18 09:00 ([place] 5-325 Mg) 1 tab Q4H PRN PO 01/16/18 21:15 ([place] 7.5-325 Mg) 1 tab Q4H PRN PO 01/16/18 21:15 01/16/18 21:41 (Dilaudid Pf Inj) 1 mg Q3H PRN IV PUSH 01/16/18 21:15 (Narcan Inj) 0.4 mg UNSCH PRN IV PUSH 01/16/18 21:15 Miscellaneous Information SPECIFIC LAB TO BE DRAWN:VANCO TROUGH DATE... ONCE ONCE .XX 01/20/18 01:45 01/20/18 01:46 (Prinivil) 10 mg DAILY PO 01/19/18 10:30 01/19/18 11:50 Lines Line with no evidence of infection Past Medical History Diabetes, not on treatment Past Surgical History Fracture femur, ankle, from an accident (Frank Jerome) Allergies: Coded Allergies: No Known Allergies (Unverified , 01/14/18) Objective . Vital Signs Date Time Temp Pulse Resp B/P (MAP) Pulse Ox O2 Delivery O2 Flow Rate FiO2 01/23/18 16:00 97.6 89 18 117/72 (87) 95 01/23/18 13:00 94 01/23/18 12:00 97.6 85 18 121/68 (85) 93 01/23/18 08:00 97.5 89 18 144/90 (108) 93 01/23/18 05:22 97.6 92 18 129/83 (98) 96 01/23/18 00:33 98.0 96 18 138/75 (96) 95 01/22/18 20:41 97.6 91 18 159/96 (117) 95 01/22/18 18:07 97 21 01/22/18 18:00 97.9 89 14 136/83 (100) 95 Nasal Cannula 2 01/22/18 17:45 88 14 124/71 (88) 96 Nasal Cannula 2 01/22/18 17:39 97.9 89 14 121/71 (88) 94 Nasal Cannula 2 . Laboratory Tests Test 01/22/18 06:15 01/23/18 07:25 White Blood Count 6.7 TH/MM3 6.8 TH/MM3 Red Blood Count 4.34 MIL/MM3 4.28 MIL/MM3 Hemoglobin 11.8 GM/DL 11.7 GM/DL Hematocrit 35.8 % 35.3 % Mean Corpuscular Volume 82.5 FL 82.4 FL Mean Corpuscular Hemoglobin 27.2 PG 27.4 PG Mean Corpuscular Hemoglobin Concent 32.9 % 33.2 % Red Cell Distribution Width 16.4 % 16.8 % Platelet Count 319 TH/MM3 327 TH/MM3 Mean Platelet Volume 7.9 FL 7.7 FL Neutrophils (%) (Auto) 71.4 % 79.4 % Lymphocytes (%) (Auto) 15.9 % 11.8 % Monocytes (%) (Auto) 9.7 % 6.2 % Eosinophils (%) (Auto) 2.1 % 0.9 % Basophils (%) (Auto) 0.9 % 1.7 % Neutrophils # (Auto) 4.8 TH/MM3 5.4 TH/MM3 Lymphocytes # (Auto) 1.1 TH/MM3 0.8 TH/MM3 Monocytes # (Auto) 0.7 TH/MM3 0.4 TH/MM3 Eosinophils # (Auto) 0.1 TH/MM3 0.1 TH/MM3 Basophils # (Auto) 0.1 TH/MM3 0.1 TH/MM3 CBC Comment DIFF FINAL DIFF FINAL Differential Comment Laboratory Tests Test 01/22/18 06:15 01/23/18 07:25 Blood Urea Nitrogen 18 MG/DL 18 MG/DL Creatinine 1.38 MG/DL 1.46 MG/DL Random Glucose 118 MG/DL 270 MG/DL Calcium Level 8.2 MG/DL 8.3 MG/DL Sodium Level 138 MEQ/L 135 MEQ/L Potassium Level 4.2 MEQ/L 4.2 MEQ/L Chloride Level 105 MEQ/L 99 MEQ/L Carbon Dioxide Level 24.2 MEQ/L 27.2 MEQ/L Anion Gap 9 MEQ/L 9 MEQ/L Estimat Glomerular Filtration Rate 52 ML/MIN 48 ML/MIN Total Protein 7.2 GM/DL Albumin 2.4 GM/DL Alkaline Phosphatase 177 U/L Aspartate Amino Transf (AST/SGOT) 16 U/L Alanine Aminotransferase (ALT/SGPT) 16 U/L Total Bilirubin 0.4 MG/DL Microbiology Date/Time Source Procedure Growth Status 01/22/18 17:20 Wound Foot Fungal Smear - Final NO FUNGAL ELEMENTS SEEN. Resulted 01/22/18 17:20 Wound Foot Fungal Culture Pending Resulted 01/22/18 17:20 Wound Foot Acid Fast Stain - Final NO ACID FAST BACILLI SEEN Resulted 01/22/18 17:20 Wound Foot Mycobacterial Culture Pending Resulted 01/22/18 17:20 Wound Foot Gram Stain - Final Resulted 01/22/18 17:20 Wound Foot Wound Culture - Preliminary NO GROWTH IN 24 HOURS. Resulted Imaging Last Impressions Carotid Artery Ultrasound 01/15/18 0000 Signed Impressions: Service Date/Time: December 11:48 - CONCLUSION: 1. Elevated peak systolic velocity of the right internal carotid artery at elevated ICA/ CCA ratio suggesting 50-69%% stenosis of the right ICA. 2. No significant left carotid stenosis. Hesham Wheat MD Foot X-Ray 01/14/18 0000 Signed Impressions: Service Date/Time: Sunday, January 14, 2018 17:43 - CONCLUSION: 1. Small cutaneous ulcer along the ball of foot. 2. Degenerative changes are seen throughout the foot. 3. No bony destruction. Claude Gaviria MD Foot MRI 01/14/18 0000 Signed Impressions: Service Date/Time: Sunday, January 14, 2018 19:52 - CONCLUSION: Osteomyelitis at the fifth proximal phalanx and at the distal aspect of the metatarsal of the fifth metatarsal head region. Eric Resendiz MD Physical Exam GENERAL: Patient is a well-nourished, well-developed male in no apparent distress SKIN: Warm and dry. No generalized rash, no ecchymoses and no evidence of embolic lesions. HEAD: Atraumatic. Normocephalic. No temporal wasting, or tenderness. EYES: [place] conjunctiva. No petechia or hemorrhage. Pupils equal, round and reactive to light. Extraocular movements full and intact. No scleral icterus. No injection or drainage. EARS, NOSE AND THROAT: Nose without bleeding or purulent nasal discharge. No sinus tenderness. Mucous membranes pink and moist. No oral lesions noted. No exudate. No oral thrush. NECK: Trachea midline. CARDIOVASCULAR: Regular rate and rhythm. No murmurs, rubs or gallops heard RESPIRATORY: Clear to auscultation. Breath sounds equal bilaterally. No rales , wheezing or rhonchi ABDOMEN: Soft, non-tender, nondistended. Bowel sounds present and normoactive. EXTREMITIES: No clubbing, cyanosis. No joint effusion, has good ROM. Bulky dressing right foot, able to wiggle toes. Left foot Raul wrap. NEUROLOGICAL: Awake and alert. Cranial nerves grossly intact. Motor grossly within normal limits. PSYCHIATRIC: Normal affect, calm and cooperative. LINE: No evidence of infection. (Frank Jerome) Assessment & Plan Remarks Remarks Infection R foot, with osteo of 5th toe and distal 5th MT, S/P ray resection by Dr. Eid Surgical site wound dehiscence with purulence, patient weightbearing against instructions - C/S negative, ?due to prior Abx; G/S with GPR - Initial Path report reviewed, margins clear -01/22/18 S/P Right foot incision and drainage debridement with closure of wound with Dr. Mcclendon -Splint applied, nonweightbearing status. DM, not compliant with treatment. Blood sugars overall controlled. Renal insufficiency Recommendations Continue IV Cefepime Continue IV Flagyl Follow cultures, follow labs Discussed with Dr. Mcclendon, surgical site dehisced with purulence. He wanted to continue antibiotic for now until he sees the wound again for change of dressing. Plan for rehabilitation with IV ABX. Pending new deep cultures. We will follow results Monitor progress Further recommendations to follow (Frank Jerome) Remarks The exam, history, and the medical decision-making described in the above note were completed with the assistance of the mid-level provider. I reviewed and agree with the findings presented. I attest that I had a [id number] encounter with the patient on the same day, and personally performed and documented my assessment and findings in the medical record. Dw ongoing purulence. He will follow up in am. Plan for continued IV antibiotics on discharge would not recommend oral antibiotics. (Sulma Alexandra MD) Frank Jerome Jan 23, 2018 17:59 Sulma Alexandra MD Jan 23, 2018 21:11
[2018-01-23] MEDS: ENOXAPARIN SODIUM 40 MG/0.4 ML SYRINGE SQ SCH (18:07)
[2018-01-24] VITALS (7 sets, daily range): BP systolic 135–145; BP diastolic 72–87; PULSE 88–97; RESP 18; TEMP 97.4–98.2; O2SAT 92–98
[2018-01-24] MEDS: CEFEPIME INJ 1,000 MG in SODIUM CHLORIDE 0.9% INJ 100 ML IV SCH ×3 (03:37→20:25)
[2018-01-24] MEDS: metroNIDAZOLE 500 MG INJ 100 ML IV SCH ×3 (03:37→20:25)
[2018-01-24] MEDS: INSULIN ASPART SUPPLEMENTAL SCALE SQ SCH ×4 (08:00→20:37)
[2018-01-24] MEDS: DOCUSATE SODIUM 50 MG/SENNA 8.6 MG TAB PO SCH ×2 (08:39→20:25)
[2018-01-24] MEDS: SODIUM HYPOCHLORITE 0.25% 500 ML BTL TOP SCH ×2 (08:42→20:37)
[2018-01-24] MEDS: LISINOPRIL 10 MG TAB PO SCH (08:42)
[2018-01-24] MEDS: SODIUM CHLORIDE 0.9% FLUSH 10 ML FLUSH IV FLUSH SCH ×2 (08:42→20:25)
[2018-01-24] MEDS: BACITRACIN TOP OINT 15 GM TUBE TOPICAL SCH (08:43)
[2018-01-24 08:59] LABS: BASOPHIL # 0.1 TH/MM3 (0-0.2); BASOPHIL % 0.9 % (0.0-2.0); EOSINOPHIL # 0.2 TH/MM3 (0-0.4); EOSINOPHIL % 2.7 % (0.0-4.0); HEMATOCRIT 34.6 % (39.0-51.0); HEMOGLOBIN 11.4 GM/DL (13.0-17.0); LYMPH % 19.1 % (9.0-44.0); LYMPHOCYTE # 1.4 TH/MM3 (1.0-4.8); MEAN CELL VOLUME 82.9 FL (80.0-100.0); MEAN CORPUSCULAR HEMOGLOBIN 27.2 PG (27.0-34.0); MEAN CORPUSCULAR HGB CONC 32.8 % (32.0-36.0); MEAN PLATELET VOLUME 7.8 FL (7.0-11.0); MONO % 8.5 % (0.0-8.0); MONOCYTE # 0.6 TH/MM3 (0-0.9); NEUT % 68.8 % (16.0-70.0); PLATELET COUNT 309 TH/MM3 (150-450); RED BLOOD COUNT 4.18 MIL/MM3 (4.50-5.90); RED CELL DISTRIBUTION WIDTH 17.2 % (11.6-17.2); WHITE BLOOD COUNT 7.3 TH/MM3 (4.0-11.0)
[2018-01-24 09:17] LABS: ALBUMIN 2.3 GM/DL (3.4-5.0); ALKALINE PHOSPHATASE 171 U/L (45-117); ALT (GPT) 19 U/L (12-78); AST (GOT) 20 U/L (15-37); BICARBONATE 28.3 MEQ/L (21.0-32.0); BLOOD UREA NITROGEN 19 MG/DL (7-18); CALCIUM 8.4 MG/DL (8.5-10.1); CHLORIDE 102 MEQ/L (98-107); CREATININE 1.51 MG/DL (0.60-1.30); GLOMERULAR FILTRATION RATE 47 ML/MIN (>89); GLUCOSE,RANDOM 140 MG/DL (74-106); SODIUM (NA) 138 MEQ/L (136-145); TOTAL BILIRUBIN ADULT 0.3 MG/DL (0.2-1.0); TOTAL PROTEIN 7.1 GM/DL (6.4-8.2)
--- NOTE | 2018-01-24 16:50 | PD.POD ---
Subjective Pain score: 0 Remarks Doing well status post left foot revision I&D, he is open to the idea of rehabilitation will help heal his left foot Past Med/Surg/Social History Social History Smoking Status: Never Smoker Objective Vital Signs Vital Signs Date Time Temp Pulse Resp B/P (MAP) Pulse Ox O2 Delivery O2 Flow Rate FiO2 01/24/18 16:00 97.6 88 18 141/87 (105) 98 01/24/18 12:00 97.6 89 18 142/72 (95) 96 01/24/18 11:22 93 21 01/24/18 08:00 98.1 91 18 140/83 (102) 94 01/24/18 04:33 97.6 91 18 145/85 (105) 92 01/23/18 23:58 97.8 94 18 109/60 (76) 96 01/23/18 20:56 98.4 90 18 131/71 (91) 96 Coded Allergies: No Known Allergies (Unverified , 01/14/18) Medications and IVs Administered Medications Medications (Trade) Dose Ordered Sig/Nahomi Route PRN Reason Start Time Stop Time Status Last Admin Dose Admin Sodium Chloride (NS Flush) 2 ml UNSCH PRN IV FLUSH FLUSH AFTER USING IV ACCESS 01/14/18 14:00 01/22/18 14:30 Sodium Chloride (NS Flush) 2 ml BID IV FLUSH 01/14/18 21:00 01/24/18 08:42 Senna/Docusate Sodium (Rafaela-Colace) 1 tab BID PO 01/14/18 21:00 01/24/18 08:39 Insulin Aspart (NovoLOG SUPPLEMENTAL SCALE) 1 ACHS SLIDING SCALE SQ 01/14/18 17:00 01/24/18 12:00 Sodium Hypochlorite (Dakin'S 0.25% Soln) 1,000 ml BID TOP 01/14/18 21:00 01/23/18 08:59 Bacitracin (Baciguent Oint) 1 applic DAILY TOPICAL 01/17/18 09:00 01/23/18 09:00 Acetaminophen/ Hydrocodone Bitart ([place] 7.5-325 Mg) 1 tab Q4H PRN PO PAIN SCALE 6 TO 10 01/16/18 21:15 01/16/18 21:41 Lisinopril (Prinivil) 10 mg DAILY PO 01/19/18 10:30 01/24/18 08:42 Ciprofloxacin (Cipro) 500 mg Q12HR PO 01/19/18 21:00 Future Hold 01/20/18 07:55 Enoxaparin Sodium (Lovenox Inj) 40 mg Q24H SQ 01/19/18 17:00 01/23/18 18:07 Cefepime HCl 1000 mg/Sodium Chloride 100 ml @ 200 mls/hr Q8H IV 01/20/18 20:00 01/24/18 12:00 Metronidazole 100 ml @ 100 mls/hr Q8H IV 01/20/18 20:00 01/24/18 11:53 Other Results Laboratory Tests Test 01/23/18 07:25 01/24/18 07:30 White Blood Count 6.8 TH/MM3 7.3 TH/MM3 Red Blood Count 4.28 MIL/MM3 4.18 MIL/MM3 Hemoglobin 11.7 GM/DL 11.4 GM/DL Hematocrit 35.3 % 34.6 % Mean Corpuscular Volume 82.4 FL 82.9 FL Mean Corpuscular Hemoglobin 27.4 PG 27.2 PG Mean Corpuscular Hemoglobin Concent 33.2 % 32.8 % Red Cell Distribution Width 16.8 % 17.2 % Platelet Count 327 TH/MM3 309 TH/MM3 Mean Platelet Volume 7.7 FL 7.8 FL Neutrophils (%) (Auto) 79.4 % 68.8 % Lymphocytes (%) (Auto) 11.8 % 19.1 % Monocytes (%) (Auto) 6.2 % 8.5 % Eosinophils (%) (Auto) 0.9 % 2.7 % Basophils (%) (Auto) 1.7 % 0.9 % Neutrophils # (Auto) 5.4 TH/MM3 5.0 TH/MM3 Lymphocytes # (Auto) 0.8 TH/MM3 1.4 TH/MM3 Monocytes # (Auto) 0.4 TH/MM3 0.6 TH/MM3 Eosinophils # (Auto) 0.1 TH/MM3 0.2 TH/MM3 Basophils # (Auto) 0.1 TH/MM3 0.1 TH/MM3 CBC Comment DIFF FINAL DIFF FINAL Differential Comment Laboratory Tests Test 01/23/18 07:25 01/24/18 07:30 Blood Urea Nitrogen 18 MG/DL 19 MG/DL Creatinine 1.46 MG/DL 1.51 MG/DL Random Glucose 270 MG/DL 140 MG/DL Total Protein 7.2 GM/DL 7.1 GM/DL Albumin 2.4 GM/DL 2.3 GM/DL Calcium Level 8.3 MG/DL 8.4 MG/DL Alkaline Phosphatase 177 U/L 171 U/L Aspartate Amino Transf (AST/SGOT) 16 U/L 20 U/L Alanine Aminotransferase (ALT/SGPT) 16 U/L 19 U/L Total Bilirubin 0.4 MG/DL 0.3 MG/DL Sodium Level 135 MEQ/L 138 MEQ/L Potassium Level 4.2 MEQ/L 4.3 MEQ/L Chloride Level 99 MEQ/L 102 MEQ/L Carbon Dioxide Level 27.2 MEQ/L 28.3 MEQ/L Anion Gap 9 MEQ/L 8 MEQ/L Estimat Glomerular Filtration Rate 48 ML/MIN 47 ML/MIN Microbiology Date/Time Source Procedure Growth Status 01/22/18 17:20 Wound Foot Fungal Smear - Final NO FUNGAL ELEMENTS SEEN. Resulted 01/22/18 17:20 Wound Foot Fungal Culture Pending Resulted 01/22/18 17:20 Wound Foot Acid Fast Stain - Final NO ACID FAST BACILLI SEEN Resulted 01/22/18 17:20 Wound Foot Mycobacterial Culture Pending Resulted 01/22/18 17:20 Wound Foot Gram Stain - Final Resulted 01/22/18 17:20 Wound Foot Wound Culture - Preliminary NO GROWTH IN 48 HOURS. Resulted Exam-Podiatry Remarks Left foot superficial abrasion ulcer left first MPJ uncomplicated no signs of infection Right foot sulcus incision loosely coapted with packing intact upon removing packing minimal drainage less swelling less erythema, appears to be improved Feet are warm sensation decreased to light touch bilateral splint appears to be intact right Assessment & Plan A/P Left foot ulcer, improving Right foot abscess infection, surgery site appears to be now improving S/P per Dr Eid 01/16 1. Left foot wound debridement. 2. Right foot incision and drainage 3. Right foot extensive wound debridement. 4. Right foot partial fifth ray amputation. 5. Right foot wound closure using a rotational flap Status post revision I&D. Wound closure. Dr. Walsh 01/22 Surgical cultures no growth recommended IV antibiotics one more day and then transition to empiric by mouth antibiotics. Bandages changed splint reapplied, patient is strict nonweightbearing right lower extremity. Wound care okay for nursing, no further surgical plans at this point okay to DC to rehabilitation. Brandon Mcclendon DPM Jan 24, 2018 16:50
[2018-01-24] MEDS: ENOXAPARIN SODIUM 40 MG/0.4 ML SYRINGE SQ SCH (18:17)
--- NOTE | 2018-01-24 18:19 | HHI.FPPN ---
Subjective Remarks Patient was seen and evaluated this morning. He feels well. He denies shortness of breath, chest and abdominal pain, nausea, vomiting, diarrhea and constipation. He denies pain in feet. All questions were answered. (Gracy Nice MD R1) Objective Vitals Vital Signs Date Time Temp Pulse Resp B/P (MAP) Pulse Ox O2 Delivery O2 Flow Rate FiO2 01/24/18 16:00 97.6 88 18 141/87 (105) 98 01/24/18 12:00 97.6 89 18 142/72 (95) 96 01/24/18 11:22 93 21 01/24/18 08:00 98.1 91 18 140/83 (102) 94 01/24/18 04:33 97.6 91 18 145/85 (105) 92 01/23/18 23:58 97.8 94 18 109/60 (76) 96 01/23/18 20:56 98.4 90 18 131/71 (91) 96 I/O 01/23/18 01/23/18 01/23/18 01/24/18 01/24/18 01/24/18 07:00 15:00 23:00 07:00 15:00 23:00 Intake Total 100 ml 200 ml 200 ml Output Total 400 ml Balance 100 ml 200 ml -200 ml IV Total 100 ml 200 ml 200 ml Output Urine Total 400 ml (Gracy Nice MD R1) Result Diagram: 01/24/18 0730 01/24/18 0730 Objective Remarks GENERAL: Well-developed, well-nourished patient. No acute distress. Sitting up in chair, appears comfortable. SKIN: Warm and dry. No rashes. No jaundice. HEAD: Atraumatic. Normocephalic. EYES: Pupils equal and round. No scleral icterus. No injection or drainage. ENT: No nasal bleeding or discharge. Mucous membranes pink and moist. NECK: Trachea midline. No JVD. CARDIOVASCULAR: Regular rate and rhythm. No murmurs. RESPIRATORY: No accessory muscle use. Good air movement bilaterally. Bibasilar crackles - minimal. GASTROINTESTINAL: Abdomen soft, non-tender, nondistended. MUSCULOSKELETAL: Both right and left foot wrapped in gauze/bandage that are clean, dry and intact. No noticeable swelling/erythema outside of the dressing. Good capillary refill bilaterally. Able to wiggle toes. NEUROLOGICAL: Awake and alert. No obvious cranial nerve deficits. Motor grossly within normal limits. Sensation to light touch present but diminished in toes on right. Normal speech. PSYCHIATRIC: Appropriate mood and affect; insight and judgment normal. Medications and IVs Current Medications Medications (Trade) Dose Ordered Sig/Nahomi Route Start Time Stop Time Status Last Admin (NS Flush) 2 ml UNSCH PRN IV FLUSH 01/14/18 14:00 01/22/18 14:30 (NS Flush) 2 ml BID IV FLUSH 01/14/18 21:00 01/24/18 08:42 (Tylenol) 650 mg Q4H PRN PO 01/14/18 14:45 (Zofran Inj) 4 mg Q6H PRN IVP 01/14/18 14:45 (Rafaela-Colace) 1 tab BID PO 01/14/18 21:00 01/24/18 08:39 (Milk Of Magnesia Liq) 30 ml Q12H PRN PO 01/14/18 14:45 (Senokot) 17.2 mg Q12H PRN PO 01/14/18 14:45 (Dulcolax Supp) 10 mg DAILY PRN RECTAL 01/14/18 14:45 (Lactulose Liq) 30 ml DAILY PRN PO 01/14/18 14:45 (D50w (Vial) Inj) 50 ml UNSCH PRN IV PUSH 01/14/18 15:00 (Glucagon Inj) 1 mg UNSCH PRN OTHER 01/14/18 15:00 (NovoLOG SUPPLEMENTAL SCALE) 1 ACHS SLIDING SCALE SQ 01/14/18 17:00 01/24/18 12:00 (Dakin'S 0.25% Soln) 1,000 ml BID TOP 01/14/18 21:00 01/23/18 08:59 (Baciguent Oint) 1 applic DAILY TOPICAL 01/17/18 09:00 01/23/18 09:00 ([place] 5-325 Mg) 1 tab Q4H PRN PO 01/16/18 21:15 ([place] 7.5-325 Mg) 1 tab Q4H PRN PO 01/16/18 21:15 01/16/18 21:41 (Dilaudid Pf Inj) 1 mg Q3H PRN IV PUSH 01/16/18 21:15 (Narcan Inj) 0.4 mg UNSCH PRN IV PUSH 01/16/18 21:15 (Prinivil) 10 mg DAILY PO 01/19/18 10:30 01/24/18 08:42 (Cipro) 500 mg Q12HR PO 01/19/18 21:00 Future Hold 01/20/18 07:55 (Lovenox Inj) 40 mg Q24H SQ 01/19/18 17:00 01/23/18 18:07 Cefepime HCl 1000 mg/Sodium Chloride 100 ml @ 200 mls/hr Q8H IV 01/20/18 20:00 01/24/18 12:00 Metronidazole 100 ml @ 100 mls/hr Q8H IV 01/20/18 20:00 01/24/18 11:53 (Lopressor) 25 mg MEDIA THEORIST AND AUTHOR OF PRN PO 01/22/18 14:45 01/25/18 14:44 (Betadine 5% Antisepsis Kit) 1 applic MEDIA THEORIST AND AUTHOR OF PRN EACH NARE 01/22/18 14:45 01/25/18 14:44 (Chlorhexidine 2% Cloth) 3 pack MEDIA THEORIST AND AUTHOR OF PRN TOPICAL 01/22/18 14:45 01/25/18 14:44 (Gracy Nice MD R1) Urinary Catheter: No (Gracy Nice MD R1) Vascular Central Line Catheter: No (Gracy Nice MD R1) A/P Assessment and Plan 67-year-old male with history of diabetes. Admitted for right foot osteomyelitis. Patient met sepsis criteria on admission. Started on Vanc, Cefepime, Flagyl since admission. S/P R foot I&D, debridement and partial amputation of 5th metatarsal as well as left foot wound debridement on 01/16. Second drainage and debridement of right foot planned for 01/22. Discharge Planning Discharge delayed due to right foot abscess involving the surgical site. Patient underwent repeat I&D on 01/22. PT recommending inpatient rehab. (Gracy Nice MD R1) Attending Attestation Patient seen and examined, discussed with Dr Nice. I agree with assessment and management as documented and discussed with me. Pt seen with 2 friends at bedside. He reports no pain, no SOB, no cough, no chest pain. Discussed with patient that he likely will need IV antibiotics at discharge; pt is undecided if he wants to go home vs rehab. Encouraged pt to use his incentive spirometer every hour. (Teri Asher MD) Problem List: (1) Osteomyelitis ICD Codes: M86.9 - Osteomyelitis, unspecified Status: Chronic Plan: Found to have osteomyelitis on right foot involving fifth proximal phalanx in the distal aspect of the metatarsal of the fifth metatarsal head. Podiatry consulted: * R foot I&D, debridement and partial amputation of 5th metatarsal as well as L foot wound debridement on 01/16. * Repeat I&D right foot 01/22/2018 with repeat deep tissue cultures * PT recs per podiatry. * PT recommending inpatient rehab after DC. * Cultures negative. * Pathology shows clear margins 01/16/2018. Imaging: * Right Foot MRI: Osteomyelitis at the fifth proximal phalanx and at the distal aspect of the metatarsal of the fifth metatarsal head region. * Right Foot XR: Diffuse soft tissue swelling with some air in the soft tissues suggesting infection and possible gangrene. * Left Foot MRI: Abnormal signal in the tibial sesamoid at the first metatarsal head region concern for possible inflammatory change in osteomyelitis. There are prominent thickening of the distal Achilles tendon consistent with very prominent tendinosis/tendinopathy. * Left Foot XR: Small cutaneous ulcer along the ball of foot. No bony destruction. Medications: * Cefepime (01/14-/2; 4/3- ) * Metronidazole (01/14-01/19; /- ) * Cipro (01/19-01/20) * [place] pain scale (2) Sepsis ICD Codes: A41.9 - Sepsis, unspecified organism Status: Resolved Plan: Met Sepsis criteria on admission with tachycardia and leukocytosis. Likely source is right foot wound. Blood cultures: no growth to date. * Currently resolved. * See more detailed plan above. (3) Diabetes ICD Codes: E11.9 - Type 2 diabetes mellitus without complications Status: Chronic Plan: Patient with known history of DM, was treated with Metformin 4 years ago but hasn't been on medication for past 2-3 years. Random glucose of 243 on admission. Low dose sliding scale. A1C elevated at 10.3. Currently well-controlled on sliding scale. Would benefit from diabetic education prior to discharge. (4) GABRIEL (acute kidney injury) ICD Codes: N17.9 - Acute kidney failure, unspecified Status: Resolved Plan: Creatinine elevated to 1.45 on admission. No known baseline. Has been stable - currently 1.51. Trending BMP daily. (5) Left foot wound Status: Chronic Plan: Wound on plantar surface of left foot. Wound was debrided by Podiatry on 01/16; will follow recs for wound care. (6) FEN Status: Acute Plan: Fluids: * Not indicated at this time. Electrolytes: * Monitor and replete as necessary. Nutrition: * Diabetic diet. DVT Prophylaxis: * SCDs. * Lovenox. GI Prophylaxis: * Not indicated. (Gracy Nice MD R1) Problem Qualifiers (1) Diabetes: Gracy Nice MD R1 Jan 24, 2018 18:19 Teri Asher MD Jan 25, 2018 08:13
[2018-01-25] MEDS: metroNIDAZOLE 500 MG INJ 100 ML IV SCH ×3 (03:51→22:25)
[2018-01-25] MEDS: CEFEPIME INJ 1,000 MG in SODIUM CHLORIDE 0.9% INJ 100 ML IV SCH ×3 (03:51→22:26)
[2018-01-25 08:00] VITALS: BP 165/104; PULSE 98; RESP 16; TEMP 97.6; O2SAT 93
[2018-01-25] MEDS: INSULIN ASPART SUPPLEMENTAL SCALE SQ SCH ×4 (08:00→22:28)
[2018-01-25] MEDS: LISINOPRIL 10 MG TAB PO SCH (08:04)
[2018-01-25] MEDS: DOCUSATE SODIUM 50 MG/SENNA 8.6 MG TAB PO SCH ×2 (08:05→22:26)
[2018-01-25] MEDS: SODIUM CHLORIDE 0.9% FLUSH 10 ML FLUSH IV FLUSH SCH ×2 (08:05→22:26)
[2018-01-25] MEDS: SODIUM HYPOCHLORITE 0.25% 500 ML BTL TOP SCH ×2 (08:06→21:00)
[2018-01-25] MEDS: BACITRACIN TOP OINT 15 GM TUBE TOPICAL SCH (08:06)
[2018-01-25 08:38] LABS: HEMATOCRIT 36.1 % (39.0-51.0); HEMOGLOBIN 11.8 GM/DL (13.0-17.0); MEAN CELL VOLUME 82.4 FL (80.0-100.0); MEAN CORPUSCULAR HGB CONC 32.8 % (32.0-36.0); MEAN PLATELET VOLUME 7.7 FL (7.0-11.0); PLATELET COUNT 325 TH/MM3 (150-450); RED BLOOD COUNT 4.38 MIL/MM3 (4.50-5.90); RED CELL DISTRIBUTION WIDTH 16.5 % (11.6-17.2); WHITE BLOOD COUNT 6.4 TH/MM3 (4.0-11.0)
[2018-01-25 09:08] LABS: ALBUMIN 2.5 GM/DL (3.4-5.0); AST (GOT) 19 U/L (15-37); BICARBONATE 27.1 MEQ/L (21.0-32.0); BLOOD UREA NITROGEN 20 MG/DL (7-18); CALCIUM 8.7 MG/DL (8.5-10.1); CHLORIDE 102 MEQ/L (98-107); CREATININE 1.42 MG/DL (0.60-1.30); GLOMERULAR FILTRATION RATE 50 ML/MIN (>89); GLUCOSE,RANDOM 129 MG/DL (74-106); SODIUM (NA) 137 MEQ/L (136-145)
[2018-01-25 09:09] LABS: ALT (GPT) 19 U/L (12-78)
[2018-01-25 09:11] LABS: ALKALINE PHOSPHATASE 169 U/L (45-117); TOTAL BILIRUBIN ADULT 0.4 MG/DL (0.2-1.0); TOTAL PROTEIN 7.4 GM/DL (6.4-8.2)
[2018-01-25 12:00] VITALS: BP 145/83; PULSE 94; RESP 18; TEMP 98.2; O2SAT 96
--- NOTE | 2018-01-25 13:11 | HHI.FPPN ---
Subjective Remarks Patient was seen and evaluated this morning. He feels well. He denies shortness of breath, chest and abdominal pain, nausea, vomiting, diarrhea and constipation. He denies pain in feet. All questions were answered. (Gracy Nice MD R1) Objective Vitals Vital Signs Date Time Temp Pulse Resp B/P (MAP) Pulse Ox O2 Delivery O2 Flow Rate FiO2 01/25/18 12:33 Nasal Cannula 01/25/18 12:00 98.2 94 18 145/83 (103) 96 01/25/18 08:00 97.6 98 16 165/104 (124) 93 01/24/18 23:29 98.2 97 18 135/79 (97) 95 01/24/18 21:30 97.4 95 18 139/84 (102) 98 01/24/18 16:00 97.6 88 18 141/87 (105) 98 I/O 01/24/18 01/24/18 01/24/18 01/25/18 01/25/18 01/25/18 07:00 15:00 23:00 07:00 15:00 23:00 Intake Total 200 ml Output Total 400 ml Balance -200 ml IV Total 200 ml Output Urine Total 400 ml (Gracy Nice MD R1) Result Diagram: 01/25/18 0741 01/25/18 0741 Objective Remarks GENERAL: Well-developed, well-nourished patient. No acute distress. Sitting up in chair, appears comfortable. SKIN: Warm and dry. No rashes. No jaundice. HEAD: Atraumatic. Normocephalic. EYES: Pupils equal and round. No scleral icterus. No injection or drainage. ENT: No nasal bleeding or discharge. Mucous membranes pink and moist. NECK: Trachea midline. No JVD. CARDIOVASCULAR: Regular rate and rhythm. No murmurs. RESPIRATORY: No accessory muscle use. Good air movement bilaterally. Bibasilar crackles - minimal. GASTROINTESTINAL: Abdomen soft, non-tender, nondistended. MUSCULOSKELETAL: Both right and left foot wrapped in gauze/bandage that are clean, dry and intact. No noticeable swelling/erythema outside of the dressing. Good capillary refill bilaterally. Able to wiggle toes. NEUROLOGICAL: Awake and alert. No obvious cranial nerve deficits. Motor grossly within normal limits. Sensation to light touch present but diminished in toes on right. Normal speech. PSYCHIATRIC: Appropriate mood and affect; insight and judgment normal. Medications and IVs Current Medications Medications (Trade) Dose Ordered Sig/Nahomi Route Start Time Stop Time Status Last Admin (NS Flush) 2 ml UNSCH PRN IV FLUSH 01/14/18 14:00 01/22/18 14:30 (NS Flush) 2 ml BID IV FLUSH 01/14/18 21:00 01/25/18 08:05 (Tylenol) 650 mg Q4H PRN PO 01/14/18 14:45 (Zofran Inj) 4 mg Q6H PRN IVP 01/14/18 14:45 (Rafaela-Colace) 1 tab BID PO 01/14/18 21:00 01/24/18 20:25 (Milk Of Magnesia Liq) 30 ml Q12H PRN PO 01/14/18 14:45 (Senokot) 17.2 mg Q12H PRN PO 01/14/18 14:45 (Dulcolax Supp) 10 mg DAILY PRN RECTAL 01/14/18 14:45 (Lactulose Liq) 30 ml DAILY PRN PO 01/14/18 14:45 (D50w (Vial) Inj) 50 ml UNSCH PRN IV PUSH 01/14/18 15:00 (Glucagon Inj) 1 mg UNSCH PRN OTHER 01/14/18 15:00 (NovoLOG SUPPLEMENTAL SCALE) 1 ACHS SLIDING SCALE SQ 01/14/18 17:00 01/25/18 12:56 (Dakin'S 0.25% Soln) 1,000 ml BID TOP 01/14/18 21:00 01/23/18 08:59 (Baciguent Oint) 1 applic DAILY TOPICAL 01/17/18 09:00 01/25/18 08:06 ([place] 5-325 Mg) 1 tab Q4H PRN PO 01/16/18 21:15 ([place] 7.5-325 Mg) 1 tab Q4H PRN PO 01/16/18 21:15 01/16/18 21:41 (Dilaudid Pf Inj) 1 mg Q3H PRN IV PUSH 01/16/18 21:15 (Narcan Inj) 0.4 mg UNSCH PRN IV PUSH 01/16/18 21:15 (Prinivil) 10 mg DAILY PO 01/19/18 10:30 01/25/18 08:04 (Cipro) 500 mg Q12HR PO 01/19/18 21:00 Future Hold 01/20/18 07:55 (Lovenox Inj) 40 mg Q24H SQ 01/19/18 17:00 01/24/18 18:17 Cefepime HCl 1000 mg/Sodium Chloride 100 ml @ 200 mls/hr Q8H IV 01/20/18 20:00 01/25/18 12:07 Metronidazole 100 ml @ 100 mls/hr Q8H IV 01/20/18 20:00 01/25/18 12:56 (Lopressor) 25 mg OB GYN PHYSICIAN ASSISTANT PRN PO 01/22/18 14:45 01/25/18 14:44 (Betadine 5% Antisepsis Kit) 1 applic OB GYN PHYSICIAN ASSISTANT PRN EACH NARE 01/22/18 14:45 01/25/18 14:44 (Chlorhexidine 2% Cloth) 3 pack OB GYN PHYSICIAN ASSISTANT PRN TOPICAL 01/22/18 14:45 01/25/18 14:44 (Gracy Nice MD R1) Urinary Catheter: No (Gracy Nice MD R1) Vascular Central Line Catheter: No (Gracy Nice MD R1) A/P Assessment and Plan 67-year-old male with history of diabetes. Admitted for right foot osteomyelitis. Patient met sepsis criteria on admission. Started on Vanc, Cefepime, Flagyl since admission. S/P R foot I&D, debridement and partial amputation of 5th metatarsal as well as left foot wound debridement on 01/16. Second drainage and debridement of right foot planned for 01/22. Discharge Planning Likely early this week. PT recommending inpatient rehab. (Gracy Nice MD R1) Attending Attestation Patient seen and examined, discussed with Dr Nice. I agree with assessment and management as documented and discussed with me. Pt without complaints. He is looking forward to possible going to rehab. reinforced that Right foot is nonweight bearing. Appreciate ID, podiatry. (Teri Asher MD) Problem List: (1) Osteomyelitis ICD Codes: M86.9 - Osteomyelitis, unspecified Status: Chronic Plan: Found to have osteomyelitis on right foot involving fifth proximal phalanx in the distal aspect of the metatarsal of the fifth metatarsal head. Podiatry consulted: * R foot I&D, debridement and partial amputation of 5th metatarsal as well as L foot wound debridement on 01/16. * Repeat I&D right foot 01/22/2018 with repeat deep tissue cultures. * PT recs per podiatry. * PT recommending inpatient rehab after DC. * Cultures negative. * Pathology shows clear margins 01/16/2018. Imaging: * Right Foot MRI: Osteomyelitis at the fifth proximal phalanx and at the distal aspect of the metatarsal of the fifth metatarsal head region. * Right Foot XR: Diffuse soft tissue swelling with some air in the soft tissues suggesting infection and possible gangrene. * Left Foot MRI: Abnormal signal in the tibial sesamoid at the first metatarsal head region concern for possible inflammatory change in osteomyelitis. There are prominent thickening of the distal Achilles tendon consistent with very prominent tendinosis/tendinopathy. * Left Foot XR: Small cutaneous ulcer along the ball of foot. No bony destruction. Medications: * Cefepime (01/14-01/19; 01/20- ). * Metronidazole (01/14-01/19; 01/20- ). * Cipro (01/19-01/20). * [place] pain scale. Will clarify whether patient will need IV antibiotics upon discharge. ID on board. (2) Sepsis ICD Codes: A41.9 - Sepsis, unspecified organism Status: Resolved Plan: Met Sepsis criteria on admission with tachycardia and leukocytosis. Likely source is right foot wound. Blood cultures: no growth to date. * Currently resolved. * See more detailed plan above. (3) Diabetes ICD Codes: E11.9 - Type 2 diabetes mellitus without complications Status: Chronic Plan: Patient with known history of DM, was treated with Metformin 4 years ago but hasn't been on medication for past 2-3 years. Random glucose of 243 on admission. Low dose sliding scale. A1C elevated at 10.3. Currently well-controlled on sliding scale. Would benefit from diabetic education prior to discharge. (4) GABRIEL (acute kidney injury) ICD Codes: N17.9 - Acute kidney failure, unspecified Status: Resolved Plan: Creatinine elevated to 1.45 on admission. No known baseline. Has been stable - currently 1.42. Trending BMP daily. (5) Left foot wound Status: Chronic Plan: Wound on plantar surface of left foot. Wound was debrided by Podiatry on 01/16; will follow recs for wound care. (6) FEN Status: Acute Plan: Fluids: * Not indicated at this time. Electrolytes: * Monitor and replete as necessary. Nutrition: * Diabetic diet. DVT Prophylaxis: * SCDs. * Lovenox. GI Prophylaxis: * Not indicated. (Gracy Nice MD R1) Problem Qualifiers (1) Diabetes: Gracy Nice MD R1 Jan 25, 2018 13:11 Teri Asher MD Jan 26, 2018 14:37
[2018-01-25 16:00] VITALS: BP 148/89; PULSE 96; RESP 18; TEMP 98.1; O2SAT 96
[2018-01-25] MEDS: ENOXAPARIN SODIUM 40 MG/0.4 ML SYRINGE SQ SCH (18:06)
[2018-01-26] VITALS: BP 102/58; PULSE 69; RESP 16; TEMP 97.8; O2SAT 94
[2018-01-26] MEDS: metroNIDAZOLE 500 MG INJ 100 ML IV SCH (04:00)
[2018-01-26] MEDS: CEFEPIME INJ 1,000 MG in SODIUM CHLORIDE 0.9% INJ 100 ML IV SCH (04:00)
[2018-01-26 05:00] VITALS: BP 159/95; PULSE 95; TEMP 97.6; O2SAT 97
[2018-01-26 08:00] VITALS: BP 131/67; PULSE 72; RESP 21; TEMP 97.5; O2SAT 94
[2018-01-26] MEDS: SODIUM HYPOCHLORITE 0.25% 500 ML BTL TOP SCH (08:24)
[2018-01-26] MEDS: INSULIN ASPART SUPPLEMENTAL SCALE SQ SCH ×3 (08:27→17:26)
[2018-01-26] MEDS: SODIUM CHLORIDE 0.9% FLUSH 10 ML FLUSH IV FLUSH SCH (08:28)
[2018-01-26] MEDS: DOCUSATE SODIUM 50 MG/SENNA 8.6 MG TAB PO SCH (08:28)
[2018-01-26] MEDS: LISINOPRIL 10 MG TAB PO SCH (08:28)
[2018-01-26] MEDS: BACITRACIN TOP OINT 15 GM TUBE TOPICAL SCH (08:30)
--- NOTE | 2018-01-26 08:50 | HHI.FPPN ---
Subjective Remarks Patient was seen and evaluated this morning. He reports feeling well. He denies chest pain, shortness of breath, nausea, vomiting, diarrhea and constipation. He denies pain in his feet. Patient inquired about weightbearing status for his right foot; per podiatry he should not be putting any weight on the right foot. All questions were answered. (Gracy Nice MD R1) Objective Vitals Vital Signs Date Time Temp Pulse Resp B/P (MAP) Pulse Ox O2 Delivery O2 Flow Rate FiO2 01/26/18 05:00 97.6 95 159/95 (116) 97 01/26/18 00:00 97.8 69 16 102/58 (73) 94 01/25/18 16:00 98.1 96 18 148/89 (108) 96 01/25/18 12:33 Nasal Cannula 01/25/18 12:00 98.2 94 18 145/83 (103) 96 I/O 01/25/18 01/25/18 01/25/18 01/26/18 01/26/18 01/26/18 07:00 15:00 23:00 07:00 15:00 23:00 Output Total 900 ml Balance -900 ml Output Urine Total 900 ml # Bowel Movements 2 (Gracy Nice MD R1) Result Diagram: 01/25/1841 01/25/18 07 Objective Remarks GENERAL: Well-developed, well-nourished patient. No acute distress. Sitting up on side of the bed, appears comfortable. SKIN: Warm and dry. No rashes. No jaundice. HEAD: Atraumatic. Normocephalic. EYES: Pupils equal and round. No scleral icterus. No injection or drainage. ENT: No nasal bleeding or discharge. Mucous membranes pink and moist. NECK: Trachea midline. No JVD. CARDIOVASCULAR: Regular rate and rhythm. No murmurs. RESPIRATORY: No accessory muscle use. Good air movement bilaterally. Continued bibasilar crackles - minimal. GASTROINTESTINAL: Abdomen soft, non-tender, nondistended. MUSCULOSKELETAL: Both right and left foot wrapped in gauze/bandage that are clean, dry and intact. No noticeable swelling/erythema outside of the dressing. Good capillary refill bilaterally. Able to wiggle toes. NEUROLOGICAL: Awake and alert. No obvious cranial nerve deficits. Motor grossly within normal limits. Sensation to light touch present but diminished in toes on right. Normal speech. PSYCHIATRIC: Appropriate mood and affect; insight and judgment normal. Medications and IVs Current Medications Medications (Trade) Dose Ordered Sig/Nahomi Route Start Time Stop Time Status Last Admin (NS Flush) 2 ml UNSCH PRN IV FLUSH 01/14/18 14:00 01/22/18 14:30 (NS Flush) 2 ml BID IV FLUSH 01/14/18 21:00 01/26/18 08:28 (Tylenol) 650 mg Q4H PRN PO 01/14/18 14:45 (Zofran Inj) 4 mg Q6H PRN IVP 01/14/18 14:45 (Rafaela-Colace) 1 tab BID PO 01/14/18 21:00 01/26/18 08:28 (Milk Of Magnesia Liq) 30 ml Q12H PRN PO 01/14/18 14:45 (Senokot) 17.2 mg Q12H PRN PO 01/14/18 14:45 (Dulcolax Supp) 10 mg DAILY PRN RECTAL 01/14/18 14:45 (Lactulose Liq) 30 ml DAILY PRN PO 01/14/18 14:45 (D50w (Vial) Inj) 50 ml UNSCH PRN IV PUSH 01/14/18 15:00 (Glucagon Inj) 1 mg UNSCH PRN OTHER 01/14/18 15:00 (NovoLOG SUPPLEMENTAL SCALE) 1 ACHS SLIDING SCALE SQ 01/14/18 17:00 01/26/18 08:27 (Dakin'S 0.25% Soln) 1,000 ml BID TOP 01/14/18 21:00 01/23/18 08:59 (Baciguent Oint) 1 applic DAILY TOPICAL 01/17/18 09:00 01/26/18 08:30 ([place] 5-325 Mg) 1 tab Q4H PRN PO 01/16/18 21:15 ([place] 7.5-325 Mg) 1 tab Q4H PRN PO 01/16/18 21:15 01/16/18 21:41 (Dilaudid Pf Inj) 1 mg Q3H PRN IV PUSH 01/16/18 21:15 (Narcan Inj) 0.4 mg UNSCH PRN IV PUSH 01/16/18 21:15 (Prinivil) 10 mg DAILY PO 01/19/18 10:30 01/26/18 08:28 (Cipro) 500 mg Q12HR PO 01/19/18 21:00 Future Hold 01/20/18 07:55 (Lovenox Inj) 40 mg Q24H SQ 01/19/18 17:00 01/25/18 18:06 Cefepime HCl 1000 mg/Sodium Chloride 100 ml @ 200 mls/hr Q8H IV 01/20/18 20:00 01/25/18 22:26 Metronidazole 100 ml @ 100 mls/hr Q8H IV 01/20/18 20:00 01/25/18 22:25 (Gracy Nice MD R1) Urinary Catheter: No (Gracy Nice MD R1) Vascular Central Line Catheter: No (Gracy Nice MD R1) A/P Assessment and Plan 67-year-old male with history of diabetes. Admitted for right foot osteomyelitis. Patient met sepsis criteria on admission. Started on Vanc, Cefepime, Flagyl since admission. S/P R foot I&D, debridement and partial amputation of 5th metatarsal as well as left foot wound debridement on 01/16. Second drainage and debridement of right foot planned for 01/22. Discharge Planning Possible today pending ID recommendations. PT recommending inpatient rehab. (Gracy Nice MD R1) Attending Attestation Patient seen and examined, discussed with resident team. I agree with assessment and management as documented and discussed with me. Pt without new complaints or concerns. Anticipate discharge to SNF today for rehab. To SNF on PO antibiotics. (Teri sAher MD) Problem List: (1) Osteomyelitis ICD Codes: M86.9 - Osteomyelitis, unspecified Status: Chronic Plan: Found to have osteomyelitis on right foot involving fifth proximal phalanx in the distal aspect of the metatarsal of the fifth metatarsal head. Podiatry consulted: * R foot I&D, debridement and partial amputation of 5th metatarsal as well as L foot wound debridement on 01/16. * Repeat I&D right foot 01/22/2018 with repeat deep tissue cultures. * PT recs per podiatry. * PT recommending inpatient rehab after DC. * Cultures negative. * Pathology shows clear margins 01/16/2018. Imaging: * Right Foot MRI: Osteomyelitis at the fifth proximal phalanx and at the distal aspect of the metatarsal of the fifth metatarsal head region. * Right Foot XR: Diffuse soft tissue swelling with some air in the soft tissues suggesting infection and possible gangrene. * Left Foot MRI: Abnormal signal in the tibial sesamoid at the first metatarsal head region concern for possible inflammatory change in osteomyelitis. There are prominent thickening of the distal Achilles tendon consistent with very prominent tendinosis/tendinopathy. * Left Foot XR: Small cutaneous ulcer along the ball of foot. No bony destruction. Medications: * Cefepime (01/14-01/19; 01/20- ). * Metronidazole (01/14-01/19; 01/20- ). * Cipro (01/19-01/20). * [place] pain scale. Podiatry defers to ID with regard to course of antibiotics. Call out to ID to clarify course of antibiotics upon discharge. Awaiting PT re-evaluation and appreciate recommendations about equipment at discharge. (2) Sepsis ICD Codes: A41.9 - Sepsis, unspecified organism Status: Resolved Plan: Met Sepsis criteria on admission with tachycardia and leukocytosis. Likely source is right foot wound. Blood cultures: no growth to date. * Currently resolved. * See more detailed plan above. (3) Diabetes ICD Codes: E11.9 - Type 2 diabetes mellitus without complications Status: Chronic Plan: Patient with known history of DM, was treated with Metformin 4 years ago but hasn't been on medication for past 2-3 years. Random glucose of 243 on admission. Low dose sliding scale. A1C elevated at 10.3. Currently well-controlled on sliding scale. (4) GABRIEL (acute kidney injury) ICD Codes: N17.9 - Acute kidney failure, unspecified Status: Resolved Plan: Creatinine elevated to 1.45 on admission. No known baseline. Has been stable. Trending BMP daily. (5) Left foot wound Status: Chronic Plan: Wound on plantar surface of left foot. Wound was debrided by Podiatry on 01/16; will follow recs for wound care. (6) FEN Status: Acute Plan: Fluids: * Not indicated at this time. Electrolytes: * Monitor and replete as necessary. Nutrition: * Diabetic diet. DVT Prophylaxis: * SCDs. * Lovenox. GI Prophylaxis: * Not indicated. (Gracy Nice MD R1) Problem Qualifiers (1) Diabetes: Gracy Nice MD R1 Jan 26, 2018 08:50 Teri Asher MD Jan 26, 2018 19:57
[2018-01-26 09:01] LABS: HEMATOCRIT 36.2 % (39.0-51.0); HEMOGLOBIN 11.8 GM/DL (13.0-17.0); MEAN CELL VOLUME 82.8 FL (80.0-100.0); MEAN CORPUSCULAR HGB CONC 32.6 % (32.0-36.0); MEAN PLATELET VOLUME 7.8 FL (7.0-11.0); PLATELET COUNT 289 TH/MM3 (150-450); RED BLOOD COUNT 4.37 MIL/MM3 (4.50-5.90); RED CELL DISTRIBUTION WIDTH 16.9 % (11.6-17.2); WHITE BLOOD COUNT 6.5 TH/MM3 (4.0-11.0)
[2018-01-26] MEDS ORDERED: LISI10TA3 PO (09:24)
--- NOTE | 2018-01-26 09:27 | HHI.DCPOC ---
Discharge Care Plan Diagnosis: (1) Osteomyelitis (2) Diabetes (3) Left foot wound Goals to Promote Your Health * To prevent worsening of your condition and complications * To maintain your health at the optimal level Directions to Meet Your Goals Take your medications as prescribed Follow your dietary instruction Follow activity as directed Keep your appointments as scheduled Take your immunizations and boosters as scheduled If your symptoms worsen call your PCP, if no PCP go to Urgent Care Center or Emergency Room Smoking is Dangerous to Your Health. Avoid second hand smoke Call the 24-hour hour crisis hotline for domestic abuse at Gracy Nice MD R1 Jan 26, 2018 09:27
[2018-01-26 09:44] LABS: ALBUMIN 2.5 GM/DL (3.4-5.0); AST (GOT) 15 U/L (15-37); BICARBONATE 28.2 MEQ/L (21.0-32.0); BLOOD UREA NITROGEN 18 MG/DL (7-18); CALCIUM 8.6 MG/DL (8.5-10.1); CHLORIDE 102 MEQ/L (98-107); GLOMERULAR FILTRATION RATE 61 ML/MIN (>89); GLUCOSE,RANDOM 145 MG/DL (74-106); SODIUM (NA) 137 MEQ/L (136-145)
[2018-01-26 09:47] LABS: ALKALINE PHOSPHATASE 156 U/L (45-117); ALT (GPT) 15 U/L (12-78); TOTAL BILIRUBIN ADULT 0.4 MG/DL (0.2-1.0); TOTAL PROTEIN 7.3 GM/DL (6.4-8.2)
[2018-01-26 12:45] VITALS: BP 147/90; PULSE 94; RESP 20; TEMP 98; O2SAT 95
[2018-01-26] MEDS ORDERED: CLIN300C5 PO (13:14)
[2018-01-26] MEDS ORDERED: CIPR750T2 PO (13:14)
[2018-01-26] MEDS ORDERED: QC B500O TOPICAL (13:14)
--- NOTE | 2018-01-26 13:16 | HHI.DS ---
Discharge Summary Admission Date Jan 14, 2018 at 14:02 Discharge Date: Jan 26, 2018 Admitting Diagnosis (1) Osteomyelitis Diagnosis: Principal Plan: Found to have osteomyelitis on right foot involving fifth proximal phalanx in the distal aspect of the metatarsal of the fifth metatarsal head. Podiatry consulted: * R foot I&D, debridement and partial amputation of 5th metatarsal as well as L foot wound debridement on 01/16. * Repeat I&D right foot 01/22/2018 with repeat deep tissue cultures. * PT recs per podiatry. * PT recommending inpatient rehab after DC. * Cultures negative. * Pathology shows clear margins 01/16/2018. Imaging: * Right Foot MRI: Osteomyelitis at the fifth proximal phalanx and at the distal aspect of the metatarsal of the fifth metatarsal head region. * Right Foot XR: Diffuse soft tissue swelling with some air in the soft tissues suggesting infection and possible gangrene. * Left Foot MRI: Abnormal signal in the tibial sesamoid at the first metatarsal head region concern for possible inflammatory change in osteomyelitis. There are prominent thickening of the distal Achilles tendon consistent with very prominent tendinosis/tendinopathy. * Left Foot XR: Small cutaneous ulcer along the ball of foot. No bony destruction. Medications: * Cefepime (01/14-/2; 01/20- ). * Metronidazole (01/14-01/19; 01/20- ). * Cipro (01/19-01/20). * Hudson pain scale. Podiatry defers to ID with regard to course of antibiotics. Call out to ID to clarify course of antibiotics upon discharge. Awaiting PT re-evaluation and appreciate recommendations about equipment at discharge. ICD Codes: M86.9 - Osteomyelitis, unspecified Status: Chronic (2) Sepsis Diagnosis: Principal Plan: Met Sepsis criteria on admission with tachycardia and leukocytosis. Likely source is right foot wound. Blood cultures: no growth to date. * Currently resolved. * See more detailed plan above. ICD Codes: A41.9 - Sepsis, unspecified organism Status: Resolved (3) Diabetes Diagnosis: Secondary Plan: Patient with known history of DM, was treated with Metformin 4 years ago but hasn't been on medication for past 2-3 years. Random glucose of 243 on admission. Low dose sliding scale. A1C elevated at 10.3. Currently well-controlled on sliding scale. ICD Codes: E11.9 - Type 2 diabetes mellitus without complications Status: Chronic (4) GABRIEL (acute kidney injury) Diagnosis: Secondary Plan: Creatinine elevated to 1.45 on admission. No known baseline. Has been stable. Trending BMP daily. ICD Codes: N17.9 - Acute kidney failure, unspecified Status: Resolved (5) Left foot wound Diagnosis: Secondary Plan: Wound on plantar surface of left foot. Wound was debrided by Podiatry on 01/16; will follow recs for wound care. Status: Chronic (6) FEN Diagnosis: Secondary Plan: Fluids: * Not indicated at this time. Electrolytes: * Monitor and replete as necessary. Nutrition: * Diabetic diet. DVT Prophylaxis: * SCDs. * Lovenox. GI Prophylaxis: * Not indicated. Status: Acute Brief History 67 yo M with PMH of DM coming to hospital for infection in R foot. First noticed an ulcer on the lateral part of his R foot at the base of the 5th toe about 5 months ago. He started wearing boots despite feeling like it was too tight and made the wound worse. Over last two weeks noticed more swelling/ redness in the R foot (mainly in the toes adjacent to the wound). Has had blood coming from wound but no pus that he's noticed. Decided not to change his socks for two weeks due to difficulty. He denies pain in the area - feels it is numb. Has had fever/chills 4-5 days ago. No n/v or diarrhea. Was told he was a diabetic 4 years ago. Started on Metformin but hasn't taken in 2-3 years. Denies knowledge of any other medical problems CBC/BMP: 01/26/18 0719 01/26/18 0719 Significant Findings Laboratory Tests Test 01/24/18 07:30 01/25/18 07:41 01/26/18 07:19 Red Blood Count 4.18 MIL/MM3 (4.50-5.90) 4.38 MIL/MM3 (4.50-5.90) 4.37 MIL/MM3 (4.50-5.90) Hemoglobin 11.4 GM/DL (13.0-17.0) 11.8 GM/DL (13.0-17.0) 11.8 GM/DL (13.0-17.0) Hematocrit 34.6 % (39.0-51.0) 36.1 % (39.0-51.0) 36.2 % (39.0-51.0) Monocytes (%) (Auto) 8.5 % (0.0-8.0) Blood Urea Nitrogen 19 MG/DL (7-18) 20 MG/DL (7-18) Creatinine 1.51 MG/DL (0.60-1.30) 1.42 MG/DL (0.60-1.30) Random Glucose 140 MG/DL (74-106) 129 MG/DL (74-106) 145 MG/DL (74-106) Albumin 2.3 GM/DL (3.4-5.0) 2.5 GM/DL (3.4-5.0) 2.5 GM/DL (3.4-5.0) Calcium Level 8.4 MG/DL (8.5-10.1) Alkaline Phosphatase 171 U/L (45-117) 169 U/L (45-117) 156 U/L (45-117) Estimat Glomerular Filtration Rate 47 ML/MIN (>89) 50 ML/MIN (>89) 61 ML/MIN (>89) PE at Discharge GENERAL: Well-developed, well-nourished patient. No acute distress. Sitting up on side of the bed, appears comfortable. SKIN: Warm and dry. No rashes. No jaundice. HEAD: Atraumatic. Normocephalic. EYES: Pupils equal and round. No scleral icterus. No injection or drainage. ENT: No nasal bleeding or discharge. Mucous membranes pink and moist. NECK: Trachea midline. No JVD. CARDIOVASCULAR: Regular rate and rhythm. No murmurs. RESPIRATORY: No accessory muscle use. Good air movement bilaterally. Continued bibasilar crackles - minimal. GASTROINTESTINAL: Abdomen soft, non-tender, nondistended. MUSCULOSKELETAL: Both right and left foot wrapped in gauze/bandage that are clean, dry and intact. No noticeable swelling/erythema outside of the dressing. Good capillary refill bilaterally. Able to wiggle toes. NEUROLOGICAL: Awake and alert. No obvious cranial nerve deficits. Motor grossly within normal limits. Sensation to light touch present but diminished in toes on right. Normal speech. PSYCHIATRIC: Appropriate mood and affect; insight and judgment normal. Hospital Course 67 yo M with PMH of DM coming to hospital for infection in R foot. Admitted for right foot osteomyelitis. Patient met sepsis criteria on admission. Started on Vanc, Cefepime, Flagyl since admission. S/P R foot I&D, debridement and partial amputation of 5th metatarsal as well as left foot wound debridement on 01/16. Second drainage and debridement of right foot 01/22. Pathology from 01/16 showed clear margins and negative cultures. PT recommended inpatient rehabilitation after discharge. Podiatry deferred ID for course of antibiotics. ID agreed the patient can be discharged on course of antibiotics as below. Pt Condition on Discharge: Stable Discharge Instructions New Medications: Ciprofloxacin (Ciprofloxacin) 750 Mg Tab 750 MG PO BID for Infection for 14 Days, #28 TAB 0 Refills Clindamycin (Clindamycin) 300 Mg Cap 300 MG PO Q6H for Infection for 14 Days, #56 CAP 0 Refills Insulin Detemir Inj (Levemir Inj) 1,000 unit/ 10 ML Vial 10 UNITS SQ HS for Blood Sugar Management, #30 VIAL 0 Refills Do not mix with any other Insulin. Bacitracin (Topical) (Qc Bacitracin) 500 Unit/Gram Oin 1 APPLIC TOPICAL DAILY, #30 TUBE Lisinopril (Lisinopril) 10 Mg Tab 10 MG PO DAILY, #30 TAB Faiza Portillo MD R2 Jan 26, 2018 13:16
--- NOTE | 2018-01-26 14:19 | HHI.IDPN ---
Subjective Subjective Remarks Patient is a 67-year-old male, presented to the hospital complaining of redness and swelling on his right foot. He apparently has had an ulcer on the lateral aspect of his right foot for the last 5 months. He has not really been taking care of it, and it had gotten worse. Over the last several weeks he has noted redness and swelling, and also noted some drainage. It was noted that it was bloody. There was no mention of any foul-smelling discharge. He has had some subjective fevers over the last 4-5 days, but has not taken his temperature because he has no thermometer. There's been no respiratory complaint GI or any urinary complaint. Patient apparently has been diagnosed to have diabetes, and was supposed to be on Glucophage, but he has not taken any diabetic medication over the last 2-3 years. He lives alone. He was admitted and his imaging study showed evidence of osteomyelitis in the fifth toe on the right as well as in the distal aspect of his fifth metatarsal. He underwent surgery, and had abscess as well as ray resection on the fifth metatarsal. Infectious disease consultation has been requested to evaluate the patient and assist with management and treatment. Notes reviewed. D/W med team Podiatry notes reviewed Last note 01/24 - wound/incision looking good, and wanted one more day of IV Abx Got Iv Abx 01/25 but none today so far, since he has no IV access Agrees to going to rehab Being eval for [facility] but waiting for auth from insurance company Also being referred to [place] Problem with weight bearing on his heel No fever No diarrhea No rash or itching All C/S negative Biopsy - margin shows no osteo Antibiotics Cefepime Flagyl Current Medications Medications (Trade) Dose Ordered Sig/Nahomi Route Start Time Stop Time Status Last Admin (NS Flush) 2 ml UNSCH PRN IV FLUSH 01/14/18 14:00 01/22/18 14:30 (NS Flush) 2 ml BID IV FLUSH 01/14/18 21:00 01/26/18 08:28 (Tylenol) 650 mg Q4H PRN PO 01/14/18 14:45 (Zofran Inj) 4 mg Q6H PRN IVP 01/14/18 14:45 (Rafaela-Colace) 1 tab BID PO 3/28/18 21:00 01/26/18 08:28 (Milk Of Magnesia Liq) 30 ml Q12H PRN PO 01/14/18 14:45 (Senokot) 17.2 mg Q12H PRN PO 01/14/18 14:45 (Dulcolax Supp) 10 mg DAILY PRN RECTAL 01/14/18 14:45 (Lactulose Liq) 30 ml DAILY PRN PO 01/14/18 14:45 (D50w (Vial) Inj) 50 ml UNSCH PRN IV PUSH 01/14/18 15:00 (Glucagon Inj) 1 mg UNSCH PRN OTHER 01/14/18 15:00 (NovoLOG SUPPLEMENTAL SCALE) 1 ACHS SLIDING SCALE SQ 01/14/18 17:00 01/26/18 12:37 (Dakin'S 0.25% Soln) 1,000 ml BID TOP 01/14/18 21:00 01/23/18 08:59 (Baciguent Oint) 1 applic DAILY TOPICAL 01/17/18 09:00 01/26/18 08:30 (Cando 5-325 Mg) 1 tab Q4H PRN PO 01/16/18 21:15 (Cando 7.5-325 Mg) 1 tab Q4H PRN PO 01/16/18 21:15 01/16/18 21:41 (Dilaudid Pf Inj) 1 mg Q3H PRN IV PUSH 01/16/18 21:15 (Narcan Inj) 0.4 mg UNSCH PRN IV PUSH 01/16/18 21:15 (Prinivil) 10 mg DAILY PO 01/19/18 10:30 01/26/18 08:28 (Cipro) 500 mg Q12HR PO 01/19/18 21:00 Future Hold 01/20/18 07:55 (Lovenox Inj) 40 mg Q24H SQ 01/19/18 17:00 01/25/18 18:06 Cefepime HCl 1000 mg/Sodium Chloride 100 ml @ 200 mls/hr Q8H IV 01/20/18 20:00 01/25/18 22:26 Metronidazole 100 ml @ 100 mls/hr Q8H IV 01/20/18 20:00 01/25/18 22:25 Lines Line with no evidence of infection Past Medical History Diabetes, not on treatment Past Surgical History Fracture femur, ankle, from an accident Allergies: Coded Allergies: No Known Allergies (Unverified , 01/14/18) Objective . Vital Signs Date Time Temp Pulse Resp B/P (MAP) Pulse Ox O2 Delivery O2 Flow Rate FiO2 01/26/18 12:45 98.0 94 20 147/90 (109) 95 01/26/18 08:00 97.5 72 21 131/67 (88) 94 01/26/18 05:00 97.6 95 159/95 (116) 97 01/26/18 00:00 97.8 69 16 102/58 (73) 94 01/25/18 16:00 98.1 96 18 148/89 (108) 96 . Laboratory Tests Test 01/25/18 07:41 01/26/18 07:19 White Blood Count 6.4 TH/MM3 6.5 TH/MM3 Red Blood Count 4.38 MIL/MM3 4.37 MIL/MM3 Hemoglobin 11.8 GM/DL 11.8 GM/DL Hematocrit 36.1 % 36.2 % Mean Corpuscular Volume 82.4 FL 82.8 FL Mean Corpuscular Hemoglobin 27.0 PG 27.0 PG Mean Corpuscular Hemoglobin Concent 32.8 % 32.6 % Red Cell Distribution Width 16.5 % 16.9 % Platelet Count 325 TH/MM3 289 TH/MM3 Mean Platelet Volume 7.7 FL 7.8 FL Laboratory Tests Test 01/25/18 07:41 01/26/18 07:19 Blood Urea Nitrogen 20 MG/DL 18 MG/DL Creatinine 1.42 MG/DL 1.20 MG/DL Random Glucose 129 MG/DL 145 MG/DL Total Protein 7.4 GM/DL 7.3 GM/DL Albumin 2.5 GM/DL 2.5 GM/DL Calcium Level 8.7 MG/DL 8.6 MG/DL Alkaline Phosphatase 169 U/L 156 U/L Aspartate Amino Transf (AST/SGOT) 19 U/L 15 U/L Alanine Aminotransferase (ALT/SGPT) 19 U/L 15 U/L Total Bilirubin 0.4 MG/DL 0.4 MG/DL Sodium Level 137 MEQ/L 137 MEQ/L Potassium Level 4.1 MEQ/L 3.8 MEQ/L Chloride Level 102 MEQ/L 102 MEQ/L Carbon Dioxide Level 27.1 MEQ/L 28.2 MEQ/L Anion Gap 8 MEQ/L 7 MEQ/L Estimat Glomerular Filtration Rate 50 ML/MIN 61 ML/MIN Imaging Last Impressions Carotid Artery Ultrasound 01/15/18 0000 Signed Impressions: Service Date/Time: December 11:48 - CONCLUSION: 1. Elevated peak systolic velocity of the right internal carotid artery at elevated ICA/ CCA ratio suggesting 50-69%% stenosis of the right ICA. 2. No significant left carotid stenosis. Hesham Wheat MD Foot X-Ray 01/14/18 0000 Signed Impressions: Service Date/Time: Sunday, January 14, 2018 17:43 - CONCLUSION: 1. Small cutaneous ulcer along the ball of foot. 2. Degenerative changes are seen throughout the foot. 3. No bony destruction. Claude Gaviria MD Foot MRI 01/14/18 0000 Signed Impressions: Service Date/Time: Sunday, January 14, 2018 19:52 - CONCLUSION: Osteomyelitis at the fifth proximal phalanx and at the distal aspect of the metatarsal of the fifth metatarsal head region. Eric Resendiz MD Physical Exam GENERAL: Awake and alert, NAD, up in chair SKIN: Warm and dry. No generalized rash HEAD: Atraumatic. Normocephalic. No temporal wasting, or tenderness. EYES: Benson conjunctiva. No petechia or hemorrhage. Pupils equal, round and reactive to light. Extraocular movements full and intact. No scleral icterus. No injection or drainage. EARS, NOSE AND THROAT: Nose without bleeding or purulent nasal discharge. No sinus tenderness. Mucous membranes pink and moist. No oral lesions noted. No exudate. No oral thrush. NECK: Trachea midline. CARDIOVASCULAR: Regular rate and rhythm. No murmurs, rubs or gallops heard RESPIRATORY: Clear to auscultation. Breath sounds equal bilaterally. No rales , wheezing or rhonchi ABDOMEN: Soft, non-tender, nondistended. Bowel sounds present and normoactive. EXTREMITIES: No clubbing, cyanosis. No joint effusion, has good ROM. Bulky dressing right foot, able to wiggle toes. Left foot Raul wrap. NEUROLOGICAL: Awake and alert. Cranial nerves grossly intact. Motor grossly within normal limits. PSYCHIATRIC: Normal affect, calm and cooperative. LINE: No evidence of infection. Assessment & Plan Remarks Infection R foot, with osteo of 5th toe and distal 5th MT, S/P ray resection by Dr. Eid Surgical site wound dehiscence with purulence seen /, much improved now and C /S / negative - C/S negative, ?due to prior Abx; G/S with GPR - Initial Path report reviewed, margins clear DM, not compliant with treatment. Blood sugars overall controlled. Renal insufficiency Recommendations Change to po Cipro and Clinda Will start now since he hes no IV access Being referred to rehab Stable for D/C from ID standpoint I spoke with med team - D/C meds reviewed D/W CM Spoke with family Rosalva Swan MD Jan 26, 2018 14:19
[2018-01-26] MEDS ORDERED: LEVEMIR SQ (14:22)
[2018-01-26] MEDS: CLINDAMYCIN 150 MG CAP PO SCH ×2 (15:52→17:26)
[2018-01-26] MEDS ORDERED: CIPROFLOXACIN 750 MG TAB PO SCH (16:00)
[2018-01-26] MEDS: ENOXAPARIN SODIUM 40 MG/0.4 ML SYRINGE SQ SCH (17:25)
== END 2018-01-26 17:42 | DRG 854 ==
LOC: NEPD 10:08 → NEDA 14:02 → N05B 19:00
PROVIDERS: ADMIT Family Medicine; ATTEND Family Medicine
PROC: 0HXMXZZ Transfer Right Foot Skin, External Approach (ICD-10-PCS; 2018-01-16)
PROC: 0Y6X0Z0 Detachment at Right 5th Toe, Complete, Open Approach (ICD-10-PCS; 2018-01-16)
PROC: 0JBQ0ZZ Excision of Right Foot Subcutaneous Tissue and Fascia, Open Approach (ICD-10-PCS; 2018-01-16)
PROC: 0QBN0ZX Excision of Right Metatarsal, Open Approach, Diagnostic (ICD-10-PCS; 2018-01-16)
PROC: 0JBR0ZZ Excision of Left Foot Subcutaneous Tissue and Fascia, Open Approach (ICD-10-PCS; principal; 2018-01-16 16:33)
PROC: 0JBQ0ZZ Excision of Right Foot Subcutaneous Tissue and Fascia, Open Approach (ICD-10-PCS; 2018-01-22)
DX: A41.9 Sepsis, unspecified organism (principal); N17.9 Acute kidney failure, unspecified; E11.52 Type 2 diabetes mellitus with diabetic peripheral angiopathy with gangrene; E11.40 Type 2 diabetes mellitus with diabetic neuropathy, unspecified; M86.171 Other acute osteomyelitis, right ankle and foot; I65.21 Occlusion and stenosis of right carotid artery; L03.115 Cellulitis of right lower limb; L02.611 Cutaneous abscess of right foot; T81.31XA Disruption of external operation (surgical) wound, not elsewhere classified, initial encounter; T87.43 Infection of amputation stump, right lower extremity; E11.621 Type 2 diabetes mellitus with foot ulcer; E11.69 Type 2 diabetes mellitus with other specified complication; L97.514 Non-pressure chronic ulcer of other part of right foot with necrosis of bone; L97.529 Non-pressure chronic ulcer of other part of left foot with unspecified severity; R00.0 Tachycardia, unspecified; R06.02 Shortness of breath; R79.82 Elevated C-reactive protein (CRP); Y83.8 Other surgical procedures as the cause of abnormal reaction of the patient, or of later complication, without mention of misadventure at the time of the procedure; Z91.19 Patient's noncompliance with other medical treatment and regimen
CPT/HCPCS: 73630; 73720; 80048; 80053; 80202; 82565; 82948; 83036; 85025; 85027; 85652; 86140; 87015; 87040; 87070; 87102; 87116; 87176; 87205; 87206; 88305; 88307; 88311; 93005; 93880; 93922; 94150; 94664; 96374; A9579; J0690; J0692; J1100; J1650; J1815; J2250; J2370; J2405; J2543; J2710; J3010; J3370; J7030; J7040; J7050; J7120; J7613; L3260